=== PATIENT | male | born 1955 | race Caucasian/White ===

== ENCOUNTER → 2020-07-20 15:33 | Outpatient (BNVA) | payer OTHER, SELFPAY | PROVIDERS: PCP Internal Medicine; Visit Provider Student in an Organized Health Care Education/Training Program | DX: Z76.89 Persons encountering health services in other specified circumstances (principal) ==

== ENCOUNTER 2020-07-21 14:56 | Outpatient (REF) | payer OTHER, SELFPAY ==
[2020-07-21 16:22] LABS: Alanine Aminotransferase 13 U/L (0-40); Albumin Level 4.5 g/dL (3.5-5.0); Alkaline Phosphatase 56 U/L (39-117); Anion Gap 14 (12-20); Aspartate Amino Transferase 21 U/L (5-37); Bilirubin Total 0.2 mg/dL (0.0-1.0); Blood Urea Nitrogen 24 mg/dL (9-16); Carbon Dioxide 28 mmol/L (22-29); Chloride 100 mmol/L (96-108); Estimated Glomerular Filt Rate > 60; Glucose Random 84 mg/dL (60-115); Potassium 4.7 mmol/l (3.3-5.1); Sodium 137 mmol/L (135-145); Total Protein 7.1 g/dL (6.5-8.0); Uric Acid 6.4 mg/dL (3.4-7.0)
== END 2020-07-21 14:57 | disposition home or self-care (01) ==
LOC: HO.LAB 14:56
PROVIDERS: Visit Provider Student in an Organized Health Care Education/Training Program
DX: M1A.09X0 Idiopathic chronic gout, multiple sites, without tophus (tophi) (principal)
CPT/HCPCS: 36415; 80053; 84550

== ENCOUNTER 2021-01-16 15:29 | Outpatient (REF) | payer OTHER, SELFPAY ==
[2021-01-16 18:19] LABS: Alanine Aminotransferase 10 U/L (0-40); Albumin Level 4.2 g/dL (3.5-5.0); Alkaline Phosphatase 63 U/L (39-117); Anion Gap 16 (12-20); Aspartate Amino Transferase 28 U/L (5-37); Bilirubin Total 0.5 mg/dL (0.0-1.0); Blood Urea Nitrogen 16 mg/dL (9-16); Calcium 9.9 mg/dL (8.4-10.2); Carbon Dioxide 26 mmol/L (22-29); Chloride 104 mmol/L (96-108); Estimated Glomerular Filt Rate > 60; Glucose Random 86 mg/dL (60-115); Potassium 4.5 mmol/L (3.3-5.1); Sodium 141 mmol/L (135-145); Total Protein 6.9 g/dL (6.5-8.0); Uric Acid 4.7 mg/dL (3.4-7.0)
== END 2021-01-16 15:30 | disposition home or self-care (01) ==
LOC: HO.LAB 15:29
PROVIDERS: PCP Internal Medicine; Visit Provider Student in an Organized Health Care Education/Training Program
DX: M1A.09X0 Idiopathic chronic gout, multiple sites, without tophus (tophi) (principal); Z79.899 Other long term (current) drug therapy; Z87.891 Personal history of nicotine dependence; Z72.89 Other problems related to lifestyle
CPT/HCPCS: 36415; 80053; 84550

== ENCOUNTER → 2021-07-17 14:10 | Outpatient (BNVA) | payer OTHER, SELFPAY | PROVIDERS: PCP Internal Medicine; Visit Provider Nurse Practitioner Family ==

== ENCOUNTER 2021-08-15 09:23 | Outpatient (REF) | payer MEDICARE, SELFPAY ==
[2021-08-15 10:38] LABS: Alanine Aminotransferase 10 U/L (0-40); Albumin Level 4.2 g/dL (3.5-5.0); Alkaline Phosphatase 57 U/L (39-117); Anion Gap 11 (12-20); Aspartate Amino Transferase 21 U/L (5-37); Bilirubin Total 0.6 mg/dL (0.0-1.0); Blood Urea Nitrogen 21 mg/dL (9-16); Calcium 9.7 mg/dL (8.4-10.2); Carbon Dioxide 29 mmol/L (22-29); Chloride 104 mmol/L (96-108); Estimated Glomerular Filt Rate 59; Glucose Random 95 mg/dL (60-115); Potassium 4.7 mmol/L (3.3-5.1); Sodium 139 mmol/L (135-145); Total Protein 6.8 g/dL (6.5-8.0); Uric Acid 4.7 mg/dL (3.4-7.0)
== END 2021-08-15 09:24 | disposition home or self-care (01) ==
LOC: HO.LAB 09:23
PROVIDERS: PCP Internal Medicine; Visit Provider Nurse Practitioner Family
DX: M1A.09X0 Idiopathic chronic gout, multiple sites, without tophus (tophi) (principal)
CPT/HCPCS: 36415; 80053; 84550

== ENCOUNTER 2021-12-14 13:57 | Outpatient (REF) | payer MEDICARE, SELFPAY ==
[2021-12-14 15:01] LABS: MANUAL DIFF FLAG NO
[2021-12-14 15:48] LABS: Basophils Absolute Auto 0.1 X10*3/uL (0.0-0.2); Basophils Percent Auto 0.7 % (0-2); Eosinophils Absolute Auto 0.2 X10*3/uL (0.0-0.4); Hematocrit 46.2 % (42.0-52.0); Hemoglobin 15.4 g/dl (14.0-18.0); Imm Gran Abs Auto 0.02 X10*3/uL (0.00-0.03); Imm Gran Pct Auto 0.3 % (0.0-0.4); Lymphocytes Absolute Auto 2.5 X10*3/uL (1.2-4.9); Lymphocytes Percent Auto 33.6 % (20-40); Mean Corpuscular HGB Conc 33.3 g/dl (31.0-36.0); Mean Corpuscular Hemoglobin 31.8 pg (27.0-33.0); Mean Corpuscular Volume 95.3 fL (80.0-98.0); Mean Platelet Volume 9.6 fL (9.4-12.4); Monocytes Absolute Auto 0.7 X10*3/uL (0.1-1.2); Monocytes Percent Auto 9.2 % (2-11); Neutrophils Percent Auto 54.2 % (45-73); Platelet Count 281 X10*3/uL (160-400); Red Blood Count 4.85 X10*6/uL (4.60-5.80); White Blood Count 7.5 X10*3/uL (4.8-10.8)
[2021-12-14 16:09] LABS: Alanine Aminotransferase 13 U/L (0-40); Albumin Level 4.4 g/dL (3.5-5.0); Alkaline Phosphatase 58 U/L (39-117); Anion Gap 14 (12-20); Aspartate Amino Transferase 21 U/L (5-37); Bilirubin Total 0.6 mg/dL (0.0-1.0); Blood Urea Nitrogen 17 mg/dL (9-16); Calcium 9.6 mg/dL (8.4-10.2); Carbon Dioxide 25 mmol/L (22-29); Chloride 102 mmol/L (96-108); Cholesterol 259 mg/dL; Estimated Glomerular Filt Rate > 60; Glucose Fasting 92 mg/dL (60-99); HDL Cholesterol 74 mg/dL; LDL Cholesterol Calculated 157 mg/dl; Potassium 4.3 mmol/L (3.3-5.1); Sodium 137 mmol/L (135-145); Total Protein 7.2 g/dL (6.5-8.0); Triglycerides 142 mg/dL; Uric Acid 4.7 mg/dL (3.4-7.0)
[2021-12-14 16:10] LABS: Appearance Urine CLEAR; Color Urine YELLOW; Glucose Urine UA NEG (NEG); Leukocyte Esterase Urine NEG (NEG); Nitrite Urine NEG (NEG); Urine Blood NEG (NEG); Urine Ketones NEG (NEG); Urine Protein NEG (NEG-TRACE)
[2021-12-14 16:32] LABS: Prostate Specific Antigen 0.74 ng/mL (<0.05-4.0); TSH reflex Free T4 1.03 uIU/mL (0.32-4.0); Vitamin D 25-OH Total 24.4 ng/mL (>30)
== END 2021-12-14 13:58 | disposition home or self-care (01) ==
LOC: HO.LAB 13:57
PROVIDERS: Absent Provider Internal Medicine; PCP Internal Medicine; Visit Provider Nurse Practitioner Family
DX: Z00.00 Encounter for general adult medical examination without abnormal findings (principal); M1A.09X0 Idiopathic chronic gout, multiple sites, without tophus (tophi); I10 Essential (primary) hypertension; E78.5 Hyperlipidemia, unspecified; E78.00 Pure hypercholesterolemia, unspecified; E55.9 Vitamin D deficiency, unspecified; N40.0 Benign prostatic hyperplasia without lower urinary tract symptoms; Z12.5 Encounter for screening for malignant neoplasm of prostate
CPT/HCPCS: 36415; 80053; 80061; 81003; 82306; 84153; 84443; 84550; 85025; 99212

== ENCOUNTER → 2022-02-07 13:19 | Outpatient (BNVA) | payer MEDICARE, SELFPAY | PROVIDERS: PCP Internal Medicine; Referring Provider Internal Medicine; Visit Provider Physician Assistant | DX: Z12.11 Encounter for screening for malignant neoplasm of colon (principal) | CPT/HCPCS: 99202 ==

== ENCOUNTER 2022-06-14 13:32 | Outpatient (REF) | payer MEDICARE, SELFPAY ==
[2022-06-14 14:54] LABS: Blood Urea Nitrogen 16 mg/dL (9-16); Estimated Glomerular Filt Rate > 60; Uric Acid 4.2 mg/dL (3.4-7.0)
== END 2022-06-14 13:33 | disposition home or self-care (01) ==
LOC: HO.LAB 13:32
PROVIDERS: PCP Internal Medicine; Visit Provider Nurse Practitioner Family
DX: M1A.09X0 Idiopathic chronic gout, multiple sites, without tophus (tophi) (principal); Z79.899 Other long term (current) drug therapy
CPT/HCPCS: 36415; 82565; 84520; 84550; 99212

== ENCOUNTER 2022-06-17 11:42 | Day surgery (SDC) | payer MEDICARE, SELFPAY ==
[2022-06-12 10:14] VITALS: BMI 23.5
--- NOTE | 2022-06-14 10:23 | P.CONAN_ITS ---
Documented by User: Marisa Schmidt NP 06/14/22 10:25 HPI - Anesthesia Eval Consult details Narrative: 66yo M for Colonoscopy PMFSH Active Problems Active Problems: All Active Problems (Updated 02/07/22 @ 14:01 by Lianna Reed PA-C) Colon cancer screening (Acute) Post traumatic stress disorder (PTSD) (Acute) Annual physical exam (Acute) Pure hypercholesterolemia (Acute) Benign essential hypertension (Acute) Gouty arthritis (Acute) Gout (Acute) Past Medical History Medical History Benign essential hypertension Gout Gouty arthritis Hyperlipidemia Hypertension Post traumatic stress disorder (PTSD) Pure hypercholesterolemia Family History Family History Father No problems noted. Mother CVD (cardiovascular disease) Brother Alcohol abuse Epileptic seizure Aneurysm Surgical History Surgical History History of appendectomy Social History Social History Housing: House Alcohol intake: current Alcohol intake frequency: 3 or more drinks per day Patient Tobacco Use Status: Former Tobacco user Second Hand Smoke Exposure: Yes Use of substances other than those prescribed or required for medical reasons: Yes Substance Use Type Other:: smoking Substance Use Frequency: Daily Are you DNR?: No Advance Directives: No Advance Directives Information Provided: Yes Current occupational status: retired Cognitive needs: No Hearing needs: No Vision needs: Yes Meds Allergies Allergy/AdvReac Type Severity Reaction Status Date / Time aspirin [ASPIRIN] Allergy Severe THROAT Verified 06/14/22 12:57 CLOSES/HIVES NSAIDS (Non-Steroidal Allergy Intermediate Hives Verified 06/14/22 12:57 Anti-Inflamma [NSAIDS (NON-STEROIDAL ANTI-INFLAMMA] citalopram AdvReac Intermediate insomnia, Verified 06/14/22 12:57 racing thoughts , increased anxiety Exam Exam Date and Time: June 14, 2022 1023 Height,Weight and Vital Signs: Height 5 ft 10 in Weight 74.389 kg Pertinent Lab Results Pertinent Lab Results: Laboratory Tests 12/14/21 12/14/21 14:58 14:58 WBC 7.5 Hgb 15.4 Hct 46.2 Plt Count 281 Sodium 137 Potassium 4.3 Chloride 102 Carbon Dioxide 25 BUN 17 H Creatinine 1.13 Assessment and Plan Assessment Anesthesia Assessment: Chart Reviewed Documented by User: Janeth Fajardo MD 06/17/22 12:16 [facility] Past Medical History Medical History Benign essential hypertension Gout Gouty arthritis Hyperlipidemia Hypertension Post traumatic stress disorder (PTSD) Pure hypercholesterolemia Functional capacity: independent ambulation Family History Family History Father No problems noted. Mother CVD (cardiovascular disease) Brother Alcohol abuse Epileptic seizure Aneurysm Family history of problems with anesthesia: No Surgical History Surgical History History of appendectomy History of Problems with Anesthesia: No Social History Social History Housing: House Alcohol intake: current Alcohol intake frequency: 3 or more drinks per day Patient Tobacco Use Status: Former Tobacco user Second Hand Smoke Exposure: Yes Use of substances other than those prescribed or required for medical reasons: Yes Substance Use Type Other:: smoking Substance Use Frequency: Daily Are you DNR?: No Advance Directives: No Advance Directives Information Provided: Yes Current occupational status: retired Cognitive needs: No Hearing needs: No Vision needs: Yes Meds Allergies Allergy/AdvReac Type Severity Reaction Status Date / Time aspirin [ASPIRIN] Allergy Severe THROAT Verified 06/14/22 12:57 CLOSES/HIVES NSAIDS (Non-Steroidal Allergy Intermediate Hives Verified 06/14/22 12:57 Anti-Inflamma [NSAIDS (NON-STEROIDAL ANTI-INFLAMMA] citalopram AdvReac Intermediate insomnia, Verified 06/14/22 12:57 racing thoughts , increased anxiety Exam Airway Mallampati Class: I TM Dist: >3cm Neck ROM: Full Heart: RRR Lungs: CTA Assessment and Plan Final Anesthetic Review Family History of Problems with Anesthesia: No History of Problems with Anesthesia: No ASA Class: II Final Preanesthetic Review: No Changes in Pt Med Stat, Meds/Allgs Chart Reviewed, Consent Obtained/Reviewed and Anes Risks/Benef Reviewed Patient Risk: Low Procedure Risk: Low Anesthetic Plan Anesthetic Plan: MAC: Disposition: Standard PACU
--- NOTE | 2022-06-17 12:01 | MHC.SHP ---
Pre-Procedural Eval Section A Date of Service: 06/17/22 The patient is an INPATIENT: No The History & Physical has been completed within 30 days and I have reviewed it.: No Section B Chief Complaint: screening Details of Present Illness: colon cancer screening Relevant Family History (Specify if Yes): No Relevant Social History: Tobacco Use ( former smoker) Present Medications: see Short Stay Collaborative assessment Medical History: Significant History (Benign essential hypertension Gout Gouty arthritis Hyperlipidemia Hypertension Post traumatic stress disorder (PTSD) Pure hypercholesterolemia) History of Previous Operations: Relevant previous surgery/procedure and date(s) ( history of appendectomy) Allergies: Allergies Allergy/AdvReac Type Severity Reaction Status Date / Time aspirin [ASPIRIN] Allergy Severe THROAT Verified 06/14/22 12:57 CLOSES/HIVES NSAIDS (Non-Steroidal Allergy Intermediate Hives Verified 06/14/22 12:57 Anti-Inflamma [NSAIDS (NON-STEROIDAL ANTI-INFLAMMA] citalopram AdvReac Intermediate insomnia, Verified 06/14/22 12:57 racing thoughts , increased anxiety Review of Systems Sugical H&P ROS: Negative: Constitution, Cardiovascular, Respiratory and Gastrointestinal Exam Surgical H&P Exam: Normal: Heart, Normal: Lungs, Normal: Extremities and Normal: Abdomen Plan Diagnosis/Plan: Unchanged I have reviewed the history and physical and performed a pertinent physical examination on my patient. No changes have occurred unless specified.
[2022-06-17 12:07] VITALS: BP 145/92; PULSE 89; RESP 18; TEMP 36.9; O2SAT 99
[2022-06-17] MEDS: Lactated Ringers 1,000 ML 100 ML IVCONT (12:09)
--- NOTE | 2022-06-17 12:15 | P.BOP_ITS ---
Brief Operative Note Date of Service: 06/17/22 Pre-op diagnosis: colon cancer screening Post-op diagnosis: other (DIVERTICULOSIS, HEMORRHOIDS) Procedure: COLONOSCOPY TO CECUM Surgeon: Harry Lbaoy MD Anesthesia: MAC Was an Splitter Operator used for this Procedure?: Yes Splitter Operator: David Kaur Estimated blood loss (mL): 0 Pathology: none sent Condition: stable Disposition: PACU
--- NOTE | 2022-06-17 12:16 | P.OP_ITS ---
Operative Note Operative Note Date of Service: 06/17/22 Narrative: Pre-op diagnosis: colon cancer screening Post-op diagnosis:?other (DIVERTICULOSIS, HEMORRHOIDS) Surgeon: Harry Laboy MD Anesthesia:?MAC COLONOSCOPY TILL CECUM Consent: Indications for the procedure and potential complications of bleeding, perforation, reaction to medications and missed diagnosis were discussed with the patient and informed consent was obtained. Instrument: Olympus PCF H 190 L variable stiffness pediatric colonoscope Monitoring: Vital signs and clinical assessment, intermittent blood pressure monitoring, continuous EKG monitoring, Pulse oximetry and Carbon Dioxide monitoring were done throughout the procedure. Colon withdrawl time was 15 minutes. Procedure: The patient was placed in the left lateral decubitis position and pre-procedure medications were administered. After a digital rectal examination of the ano-rectum, the video colonoscope was inserted into the rectum and advanced through the colon to the cecum. The colonoscope was slowly withdrawn in a retrograde panoramic fashion and the colon mucosa was carefully examined including a retroflexed view of the rectum. Findings and interventions are described below. Procedure Difficulty: Without difficulty Findings: Terminal Ileum: Not evaluated Cecum: Normal Ascending Colon: Scattered moderate diverticulosis throughout the colon Transverse Colon: Scattered moderate diverticulosis throughout the colon Descending Colon: Scattered moderate diverticulosis throughout the colon Sigmoid Colon: Severe diverticulosis with luminal narrowing Rectum: Normal Ano-rectum: Moderate internal hemorrhoids Colon preparation: Good Impression and Post Procedure Diagnosis: Colonoscopy Findings: No polyps were detected Moderate diverticulosis seen in the entire colon (left > right) Moderate hemorrhoids on retroflexed exam. Plan: Patient has an appointment on 07/04/22 in the [facility] with Harry Laboy M.D.. Repeat Colonoscopy in 10 years (reminder sent to GI splicer machine operator). Above findings were reviewed with the patient and diverticulosis handout was given in the discharge area
[2022-06-17 12:55] VITALS: BP 104/66; PULSE 81; RESP 18; TEMP 36.2; O2SAT 98
[2022-06-17 13:10] VITALS: BP 134/85; PULSE 79; RESP 18; TEMP 36.2; O2SAT 98
--- NOTE | 2022-06-17 14:28 | HO.POSTANES ---
Post Anesthesia Evaluation Post Anesthesia Evaluation Vital Signs: Vital Signs Temp Pulse Resp BP Pulse Ox O2 Del Method 06/17/22 13:10 97.2 F 79 18 134/85 98 Room Air 06/17/22 12:55 97.2 F 81 18 104/66 98 Room Air 06/17/22 12:07 98.5 F 89 18 145/92 H 99 Room Air Anesthesia: Monitored Mental Status: Awake Pain Control: Satisfactory Nausea/Vomiting: None Hydration: Adequate Anesthesia-Related Issues: No Anes. Related Issues
== END 2022-06-17 13:52 | disposition home or self-care (01) ==
PROVIDERS: PCP Internal Medicine; Visit Provider Internal Medicine Gastroenterology
PROC: 0DJD8ZZ Inspection of Lower Intestinal Tract, Via Natural or Artificial Opening Endoscopic (ICD-10-PCS; CPT 45378; principal; 2022-06-17 12:10)
DX: Z12.11 Encounter for screening for malignant neoplasm of colon (principal); K57.30 Diverticulosis of large intestine without perforation or abscess without bleeding; K64.8 Other hemorrhoids; I10 Essential (primary) hypertension; M10.9 Gout, unspecified; E78.5 Hyperlipidemia, unspecified; E78.00 Pure hypercholesterolemia, unspecified; F43.10 Post-traumatic stress disorder, unspecified; Z79.899 Other long term (current) drug therapy; Z88.8 Allergy status to other drugs, medicaments and biological substances; Z87.891 Personal history of nicotine dependence
CPT/HCPCS: G0121

== ENCOUNTER 2022-10-30 13:17 | Outpatient (REF) | payer MEDICARE, SELFPAY ==
[2022-10-30 13:30] LABS: MANUAL DIFF FLAG NO
[2022-10-30 14:02] LABS: Basophils Percent Auto 0.4 % (0-2); Eosinophils Absolute Auto 0.1 X10*3/uL (0.0-0.4); Eosinophils Percent Auto 0.6 % (0-4); Hematocrit 42.7 % (42.0-52.0); Hemoglobin 14.6 g/dl (14.0-18.0); Imm Gran Abs Auto 0.05 X10*3/uL (0.00-0.03); Imm Gran Pct Auto 0.5 % (0.0-0.4); Lymphocytes Absolute Auto 2.4 X10*3/uL (1.2-4.9); Lymphocytes Percent Auto 24.5 % (20-40); Mean Corpuscular HGB Conc 34.2 g/dl (31.0-36.0); Mean Corpuscular Hemoglobin 33.2 pg (27.0-33.0); Mean Platelet Volume 9.3 fL (9.4-12.4); Monocytes Absolute Auto 0.9 X10*3/uL (0.1-1.2); Monocytes Percent Auto 8.8 % (2-11); Neutrophils Absolute Auto 6.3 x10*3/uL (2.0-8.3); Neutrophils Percent Auto 65.2 % (45-73); Platelet Count 269 X10*3/uL (160-400); Red Cell Distribution Width 14.2 % (11.0-16.0); White Blood Count 9.6 X10*3/uL (4.8-10.8)
[2022-10-30 14:07] LABS: Appearance Urine Clear; Color Urine Yellow; Glucose Urine UA Negative (Negative); Leukocyte Esterase Urine Negative (Negative); Nitrite Urine Negative (Negative); PH 5.5 (5.0-9.0); Specific Gravity - Urine 1.015 (1.005-1.025); Urine Blood Negative (Negative); Urine Ketones Negative (Negative); Urine Protein Negative (Neg-Trace)
[2022-10-30 15:31] LABS: Alanine Aminotransferase 10 U/L (0-40); Albumin Level 4.3 g/dL (3.5-5.0); Alkaline Phosphatase 54 U/L (39-117); Anion Gap 15 (12-20); Aspartate Amino Transferase 21 U/L (5-37); Bilirubin Total 0.6 mg/dL (0.0-1.0); Blood Urea Nitrogen 17 mg/dL (9-16); Calcium 9.3 mg/dL (8.4-10.2); Carbon Dioxide 22 mmol/L (22-29); Chloride 105 mmol/L (96-108); Cholesterol 284 mg/dL; Estimated Glomerular Filt Rate > 60; Glucose Fasting 93 mg/dL (60-99); HDL Cholesterol 77 mg/dL; LDL Cholesterol Calculated 182 mg/dl; Potassium 4.4 mmol/L (3.3-5.1); Sodium 138 mmol/L (135-145); Total Protein 6.7 g/dL (6.5-8.0); Triglycerides 127 mg/dL; Uric Acid 4.4 mg/dL (3.4-7.0)
[2022-10-30 15:38] LABS: TSH reflex Free T4 1.12 uIU/mL (0.32-4.0); Vitamin D 25-OH Total 25.1 ng/mL (>30)
== END 2022-10-30 13:18 | disposition home or self-care (01) ==
LOC: HO.LAB 13:17
PROVIDERS: PCP Internal Medicine; Visit Provider Internal Medicine
DX: E55.9 Vitamin D deficiency, unspecified (principal); E78.00 Pure hypercholesterolemia, unspecified; R30.0 Dysuria; I10 Essential (primary) hypertension; M10.9 Gout, unspecified
CPT/HCPCS: 36415; 80053; 80061; 81003; 82306; 84443; 84550; 85025

== ENCOUNTER 2023-02-27 10:18 | Outpatient (REF) | payer MEDICARE, SELFPAY ==
[2023-02-27 10:37] LABS: MANUAL DIFF FLAG NO
[2023-02-27 11:32] LABS: Basophils Absolute Auto 0.1 X10*3/uL (0.0-0.2); Basophils Percent Auto 0.7 % (0-2); Eosinophils Absolute Auto 0.1 X10*3/uL (0.0-0.4); Eosinophils Percent Auto 1.1 % (0-4); Hematocrit 41.9 % (42.0-52.0); Hemoglobin 13.9 g/dl (14.0-18.0); Imm Gran Abs Auto 0.03 X10*3/uL (0.00-0.03); Imm Gran Pct Auto 0.3 % (0.0-0.4); Lymphocytes Absolute Auto 2.4 X10*3/uL (1.2-4.9); Lymphocytes Percent Auto 23.6 % (20-40); Mean Corpuscular HGB Conc 33.2 g/dl (31.0-36.0); Mean Corpuscular Hemoglobin 31.7 pg (27.0-33.0); Mean Corpuscular Volume 95.7 fL (80.0-98.0); Monocytes Absolute Auto 1.1 X10*3/uL (0.1-1.2); Monocytes Percent Auto 10.5 % (2-11); Neutrophils Absolute Auto 6.4 x10*3/uL (2.0-8.3); Neutrophils Percent Auto 63.8 % (45-73); Platelet Count 324 X10*3/uL (160-400); Red Blood Count 4.38 X10*6/uL (4.60-5.80); Red Cell Distribution Width 13.8 % (11.0-16.0)
[2023-02-27 12:16] LABS: Appearance Urine Clear; Color Urine Yellow; Glucose Urine UA Negative (Negative); Leukocyte Esterase Urine Negative (Negative); Nitrite Urine Negative (Negative); PH 6.5 (5.0-9.0); Specific Gravity - Urine 1.015 (1.005-1.025); Urine Blood Negative (Negative); Urine Ketones Negative (Negative); Urine Protein Negative (Neg-Trace)
[2023-02-27 12:33] LABS: Alanine Aminotransferase 13 U/L (0-40); Albumin Level 3.9 g/dL (3.5-5.0); Alkaline Phosphatase 62 U/L (39-117); Anion Gap 11 (12-20); Aspartate Amino Transferase 24 U/L (5-37); Bilirubin Total 0.3 mg/dL (0.0-1.0); Blood Urea Nitrogen 15 mg/dL (9-16); Calcium 9.3 mg/dL (8.4-10.2); Carbon Dioxide 27 mmol/L (22-29); Chloride 107 mmol/L (96-108); Cholesterol 171 mg/dL; Estimated Glomerular Filt Rate > 60; Glucose Fasting 92 mg/dL (60-99); HDL Cholesterol 54 mg/dL; LDL Cholesterol Calculated 96 mg/dl; Potassium 4.6 mmol/L (3.3-5.1); Sodium 140 mmol/L (135-145); Total Protein 6.9 g/dL (6.5-8.0); Triglycerides 106 mg/dL; Uric Acid 4.7 mg/dL (3.4-7.0)
[2023-02-27 12:41] LABS: TSH reflex Free T4 1.05 uIU/mL (0.32-4.0); Vitamin D 25-OH Total 32.7 ng/mL (>30)
== END 2023-02-27 10:19 | disposition home or self-care (01) ==
LOC: HO.LAB 10:18
PROVIDERS: PCP Internal Medicine; Visit Provider Internal Medicine
DX: E55.9 Vitamin D deficiency, unspecified (principal); I10 Essential (primary) hypertension; R30.0 Dysuria; M10.9 Gout, unspecified; E78.00 Pure hypercholesterolemia, unspecified
CPT/HCPCS: 36415; 80053; 80061; 81003; 82306; 84443; 84550; 85025

== ENCOUNTER 2023-02-28 09:55 | Outpatient (AMB) | payer MEDICARE, SELFPAY ==
[2023-02-28 10:01] VITALS: BP 118/76; PULSE 75; O2SAT 98; BMI 24.6
--- NOTE | 2023-02-28 10:01 | MHC.PC.OV ---
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: No Accompanied by: Self / Same As Patient Allergies aspirin [ASPIRIN] Allergy (Severe, Verified 02/28/23 10:53) THROAT CLOSES/HIVES NSAIDS (Non-Steroidal Anti-Inflamma [NSAIDS (NON-STEROIDAL ANTI-INFLAMMA] Allergy (Intermediate, Verified 02/28/23 10:53) Hives citalopram Adverse Reaction (Intermediate, Verified 02/28/23 10:53) insomnia, racing thoughts , increased anxiety Medication List - Last Reconciled 02/28/23 by Arvind Torres MD allopurinol 300 mg PO DAILY atorvastatin 10 mg PO BEDTIME 30 days lisinopril 10 mg PO DAILY lorazepam 1 mg PO DAILY PRN 30 days sildenafil 100 mg PO DAILY 30 days Tobacco use date assessed: 02/28/23 Fall risk assessment: 1 Fall in past year Last assessed Fall Risk: 02/28/23 Dental Screening Dental Screen Date: 02/28/23 Did you have a dental visit in the last 12 months?: Yes Did you have a dental problem in the last 6 months where you did not have access to dental care?: No Was dental information given to patient?: Patient has dentist HPI hyperlipdiemia, HTN, gout, ED HPI Details Patient comes in today for his follow up visit States that he feels okay He denies any headaches or dizziness Denies any chest pains, no SOB No nausea/vomiting, no abdominal pain No change in bowel habits noted Still has increased anxiety often (has PTSD) but states that he is learning to control his anxiety better now Adds that he has not had any significant flare ups of his gout lately; will be seeing rheumatology in a few months for his yearly follow up Had his follow up labs done yesterday - to discuss his results [facility] Medical History Benign essential hypertension Closed fracture of left distal radius Erectile dysfunction Gout Gouty arthritis Hyperlipidemia Hypertension Post traumatic stress disorder (PTSD) Pure hypercholesterolemia Surgical History History of appendectomy Hx of colonoscopy Family History Father No problems noted. Mother CVD (cardiovascular disease) Brother Alcohol abuse Epileptic seizure Aneurysm Social History Housing: House Alcohol intake: current Alcohol intake frequency: 3 or more drinks per day Patient Tobacco Use Status: Former Tobacco user e-Cigarette/Vaping Use: Never Used Second Hand Smoke Exposure: Yes Current occupational status: retired Cognitive needs: No Hearing needs: No Vision needs: Yes Questionnaire PHQ-9 Over the last 2 weeks, how often have you been bothered by any of the following problems? 1. Little interest or pleasure in doing things: not at all 2. Feeling down, depressed, or hopeless: not at all 3. Trouble falling or staying asleep, or sleeping too much: not at all 4. Feeling tired or having little energy: not at all 5. Poor appetite or overeating: not at all 6. Feeling bad about yourself - or that you are a failure or have let yourself or your family down: not at all 7. Trouble concentrating on things, such as reading the newspaper or watching television: not at all 8. Moving or speaking so slowly that other people could have noticed. Or the opposite - being so fidgety or restless that you have been moving around a lot more than usual: not at all 9. Thoughts that you would be better off or of hurting yourself in some way: not at all Total score: 0 Depression Screening Interpretation: Negative 20471 - PHQ-9 Billing: Yes Source: Developed by Drs. David Garrido, Lindsey Mccarthy, Gaston Jacob and colleagues, with an educational osmar from [employer]. Thrive Questionnaire Date Thrive assessed: 02/28/23 I am a: Patient What is your living situation today?: I have a steady place to live Within the past 12 months, did the food you bought not last and you didn't have the money to get more?: Never true Within the past 12 months, did you worry whether your food would run out before you got money to buy more?: Never true Do you have trouble paying for medicines?: No Do you have trouble getting transportation to medical appointments?: No Do you have trouble paying your heating and electricity bill?: No Do you have trouble taking care of your child, family member or friend?: No Do you have trouble with day-to-day activities such as bathing, preparing meals, shopping, managing finances, etc.?: No Are you currently unemployed and looking for a job?: No Are you interested in more education?: No Please select the resources that you would like help with: None Currently or been in a relationship where the following occur: no concerns reported AUDIT C Alcohol Use Questionnaire (AUDIT-C) 1. How often do you have a drink containing alcohol?: 2-3 times a week 2. How many drinks containing alcohol do you have on a typical day when you are drinking?: 1 or 2 3. How often do you have six or more drinks on one occasion?: Never Total Score: 3 Score Reviewed/Action Taken: Yes MT-7 AMB Questionnaire MT-7 Date MT - 7 assessed: 10/31/22 Feeling nervous, anxious, or on edge: 2 = More than half the days Not being able to stop or control worryin = More than half the days Worrying too much about different things: 2 = More than half the days Trouble relaxin = Not at all Being so restless that it is hard to sit still: 0 = Not at all Becoming easily annoyed or irritable: 0 = Not at all Feeling afraid as if something awful might happen: 0 = Not at all Total MT-7 score (0-4 normal; 5-9 mild; 10-14 moderate; 15-21 severe): 6 Source: Developed by Drs. David Garrido, Lindsey Mccarthy, Gaston Jacob and colleagues, with an educational osmar from [employer]. Review of Systems Const Denies chills, Reports difficulty sleeping, Denies fatigue, Denies fever(s) and Denies headache(s) ENT Denies dysphagia, Denies dizziness, Denies otalgia, Denies headache(s), Denies odynophagia and Denies sore throat Card Denies chest pain, Denies palpitations and Denies dyspnea Resp Denies cough and Denies dyspnea GI Denies abdominal pain, Denies constipation, Denies dysphagia, Denies heartburn, Denies diarrhea, Denies nausea, Denies odynophagia and Denies vomiting Denies dysuria, Denies nocturia and Denies urinary frequency Neuro Denies dizziness and Denies headache(s) Psych Reports anxiety (increasing lately) Endo Denies fatigue and Denies palpitations Physical exam (Primary Care) Vital Signs: Last Vital Signs Pulse 75 02/28/23 10:01 BP 118/76 02/28/23 10:01 Pulse Ox 98 02/28/23 10:01 Oxygen Delivery Method Room Air 02/28/23 10:01 BMI result Body Mass Index 24.6 Tobacco/Smoking Status: Tobacco use Status Tobacco use date assessed 02/28/23 02/28/23 10:09 Patient Tobacco Use Status Former Tobacco user 02/28/23 10:09 e-Cigarette/Vaping Use Never Used 02/28/23 10:09 PHQ-9: PHQ-9 Score PHQ-9: Total score 0 02/28/23 10:09 Depression Screening Interpretation: Negative Thrive Assessment: Date of Thrive Assessment Date Thrive assessed 02/28/23 02/28/23 10:09 Currently or been in a relationship where the following occur: no concerns reported Const General: no acute distress and alert HENMT Ears: TM's normal bilaterally and EAC's normal Throat: Yes posterior oropharynx normal and Yes tonsils normal (no TP congestion) Neck Neck: Yes no lymphadenopathy and Yes supple Resp Auscultation: clear to auscultation bilaterally, no rales and no wheezes Cardio Rate: regular rate Rhythm: regular rhythm Heart sounds: no murmurs GI Palpation (GI): Soft to palpation and nontender Auscultation: normal bowel sounds Extrem General: Yes no clubbing, cyanosis or edema Results Reviewed Results Reviewed: Laboratory Tests 02/27/23 02/27/23 02/27/23 10:35 10:36 10:36 WBC 10.0 Hgb 13.9 L Hct 41.9 L Plt Count 324 Sodium 140 Potassium 4.6 Creatinine 1.17 Estimated GFR > 60 Fasting Glucose 92 Uric Acid 4.7 Calcium 9.3 AST 24 ALT 13 Triglycerides 106 Cholesterol 171 LDL Cholesterol, Calc 96 HDL Cholesterol 54 25-OH Vitamin D Total 32.7 TSH 1.05 Ur Specific [place] 1.015 Urine Protein Negative Urine Glucose (UA) Negative Urine Blood Negative Assessment and Plan Assessment & Plan (1) Pure hypercholesterolemia: Code(s): E78.00 - Pure hypercholesterolemia, unspecified Plan: Results of his labs done yesterday reviewed and discussed with patient - advised that his cholesterol levels have improved significantly from previous Reinforced low cholesterol diet Continue Atorvastatin 10 mg QD Will recheck his labs in 4 months for follow up (2) Benign essential hypertension: Code(s): I10 - Essential (primary) hypertension Plan: Reinforced low sodium diet - goal is systolic BP of at least 130 to 140 mm or less Continue Lisinopril 10 mg QD (3) Gout: Code(s): M10.9 - Gout, unspecified Qualifiers: Gout site: multiple sites Gout etiology: idiopathic Chronicity: chronic Presence of tophus: without tophus Qualified Code(s): M1A.09X0 - Idiopathic chronic gout, multiple sites, without tophus (tophi) Plan: Reinforced low purine diet States that he's had no acute gout flare ups lately - takes Prednisone as needed for acute flare ups Continue Allopurinol 300 mg QD Follow up with rheumatology as scheduled (4) Erectile dysfunction: Code(s): N52.9 - Male erectile dysfunction, unspecified Qualifiers: Erectile dysfunction type: unspecified Qualified Code(s): N52.9 - Male erectile dysfunction, unspecified Plan: Continue Sildenafil 100 mg QD PRN (5) Post traumatic stress disorder (PTSD): Code(s): F43.10 - Post-traumatic stress disorder, unspecified Plan: Continue Lorazepam 1 mg QD PRN Used to take Buspirone but patient stopped it a couple of years ago as he did not feel that it was helping; does not wish to start on any new Rx for now, especially since he is starting back on cholesterol Rx Advised to call if his anxiety continues to get worse Follow up with psychiatry as scheduled - therapist is Juan Adhikari III on [facility] in [place] although he states that he has not seen Juan Adhikari III in a few years now (6) Closed fracture of left distal radius: Code(s): S52.502A - Unspecified fracture of the lower end of left radius, initial encounter for closed fracture Qualifiers: Encounter type: sequela Fracture morphology: unspecified fracture morphology Qualified Code(s): S52.502S - Unspecified fracture of the lower end of left radius, sequela Plan: RESOLVED States that he still has some discomfort occasionally in his hand but has no other problems with it overall Injury occurred in late August 2022 when he slipped on black ice and tried to break his fall with his left hand Fracture was minimally displaced and was treated conservatively with no surgery needed - injury has since healed Follow up with orthopedics ([facility]) as scheduled or as needed Plan Follow up in 4 months Orders: Orders Comprehensive [place]. Panel Fast 4 Months E78.00 - Pure hypercholesterolemia, unspecified Lipid Panel 4 Months E78.00 - Pure hypercholesterolemia, unspecified Prostate Specific Antigen 4 Months N40.0 - Benign prostatic hyperplasia without lower urinary tract symptoms, Z00.00 - Encounter for general adult medical examination without abnormal findings TSH reflex Free T4 4 Months E78.00 - Pure hypercholesterolemia, unspecified, Z00.00 - Encounter for general adult medical examination without abnormal findings Vitamin D 25-OH Total 4 Months E55.9 - Vitamin D deficiency, unspecified, Z00.00 - Encounter for general adult medical examination without abnormal findings Complete Blood Count Auto Diff 4 Months I10 - Essential (primary) hypertension, Z00.00 - Encounter for general adult medical examination without abnormal findings UA CC w/rflx Micro + Cult 4 Months R30.0 - Dysuria, Z00.00 - Encounter for general adult medical examination without abnormal findings Uric Acid 4 Months M10.9 - Gout, unspecified Coding Level of Care Code Est Pt Level 4 (59908) Diagnoses Pure hypercholesterolemia E78.00 Benign essential hypertension I10 Gout M1A.09X0 Gout site: multiple sites Gout etiology: idiopathic Chronicity: chronic Presence of tophus: without tophus Erectile dysfunction N52.9 Erectile dysfunction type: unspecified Post traumatic stress disorder (PTSD) F43.10 Closed fracture of left distal radius S52.502S Encounter type: sequela Fracture morphology: unspecified fracture morphology
== END 2023-02-28 11:03 | disposition home or self-care (01) ==
PROVIDERS: Visit Provider Internal Medicine
DX: E78.00 Pure hypercholesterolemia, unspecified (principal); I10 Essential (primary) hypertension; F43.10 Post-traumatic stress disorder, unspecified; M1A.09X0 Idiopathic chronic gout, multiple sites, without tophus (tophi); N52.9 Male erectile dysfunction, unspecified; S52.502S Unspecified fracture of the lower end of left radius, sequela
CPT/HCPCS: 99214

== ENCOUNTER 2023-06-16 09:28 | Outpatient (AMB) | payer MEDICARE, SELFPAY ==
--- NOTE | 2023-06-16 09:30 | MHC.OFFVIS ---
Intake Vital Signs 06/16/23 09:31 Height 5 ft 10 in Weight 178 lb 9.191 oz BMI 25.6 BP 116/70 Blood Pressure Location Rt brachial Position Sitting Pulse 92 Pulse Source Pulse Oximeter Temp 97 F Temp Source Skin Pulse Oximetry (%) 97 Oxygen Delivery Method Room Air Intake Visit Reasons: Gout Intake Note: Patient presents today for yearly follow up on Gout. Last seen by Rosi on 06/14/22. Guidance Adviser Required: No Accompanied by: Self / Same As Patient Allergies aspirin [ASPIRIN] Allergy (Severe, Verified 06/16/23 09:36) THROAT CLOSES/HIVES NSAIDS (Non-Steroidal Anti-Inflamma [NSAIDS (NON-STEROIDAL ANTI-INFLAMMA] Allergy (Intermediate, Verified 06/16/23 09:36) Hives citalopram Adverse Reaction (Intermediate, Verified 06/16/23 09:36) insomnia, racing thoughts , increased anxiety HPI HPI Comments History of Present Illness Details Mr. Burks, a 66yoM presents for follow-up of gout. Last seen in June 2022. The patient has been on allopurinol 300 mg daily and has not had a gout flare since last visit. He follows a low purine diet. He states that with his past flares he knows that if he takes colchicine with out delay (when he first percieves the flare), it usually resolves the flare very quickly. However, if he waits, it takes longer to control. He also reports some handstiffness (feels like tendon pulling on left 3rd) in the morning that kasts less than 10 minutes. It does not go throughout the day and improves almost immediately with hand exercises. He denies, redness, swelling, warmth., PFSH Medical History Benign essential hypertension Closed fracture of left distal radius Erectile dysfunction Gout Gouty arthritis Hyperlipidemia Hypertension Post traumatic stress disorder (PTSD) Pure hypercholesterolemia Surgical History Hx of colonoscopy History of appendectomy Family History Father No problems noted. Mother CVD (cardiovascular disease) Brother Alcohol abuse Epileptic seizure Aneurysm Social History (Reviewed 06/16/23 @ 09:36 by LUCY Hurley Housing: House Alcohol intake: current Alcohol intake frequency: 3 or more drinks per day Patient Tobacco Use Status: Former Tobacco user e-Cigarette/Vaping Use: Never Used Second Hand Smoke Exposure: Yes Current occupational status: retired Cognitive needs: No Hearing needs: No Vision needs: Yes Review of Systems Const All systems reviewed & are unremarkable except as noted in HPI and below Physical Exam Vital Signs: Last Vital Signs Temp 97 F 06/16/23 09:31 Pulse 92 06/16/23 09:31 BP 116/70 06/16/23 09:31 Pulse Ox 97 06/16/23 09:31 Oxygen Delivery Method Room Air 06/16/23 09:31 BMI result Body Mass Index 25.6 APPEARANCE: Patient in no acute distress EYES: no redness, pupils equal and reactive to light, eyelids normal EARS: External ear normal. NOSE/SINUS: Airflow through both nares, no nasal discharge, no bleeding THROAT: Oral mucosa moist, no ulcerations NECK: No thyromegaly or masses, no adenopathy, trachea midline. HEART: Regular rhythm, S1-S2 heard, no murmurs, rubs or gallops. LUNG: Clear to auscultation throughout bilaterally, respiratory rate regular nonlabored. ABD: Normal bowel sounds, no organomegaly, masses or tenderness. EXTREMITIES: No edema, no calf tenderness, normal peripheral pulses. NEURO: Oriented and alert x3. No focal weakness. Gait normal. SKIN: No inflammatory or neoplastic lesions. Normal color and turgor JOINT EXAM: Cervical Spine:Full range of motion without pain; no tenderness. Thoracic Spine: No scoliosis.? No tenderness on palpation. Lumbar Spine:? Alignment normal.? Full range of motion without pain, no tenderness. Hands: Normal pain-free range of motion without tenderness, swelling, increased warmth or erythema. Able to make a full fist and has a good intellectual property paralegal strength. Bony enlargement noted of the left ulnar styloid (chronic x 12 years per patient) Wrists: Normal pain-free range of motion without tenderness, swelling, increased warmth or erythema. Elbows: Normal pain-free range of motion without tenderness, swelling, increased warmth or erythema. Shoulders:?? Full range of motion without pain. No tenderness, weakness, swelling, increased warmth or erythema. Hips:? Full range of motion without pain. Hip bursa: No tenderness. Knees:? Normal pain-free range of motion without tenderness, swelling, increased warmth or erythema.? There is no effusion or crepitation Ankles:? Normal pain-free range of motion without tenderness, swelling, increased warmth or erythema. Feet: Normal pain-free range of motion without tenderness, swelling, increased warmth or erythema. Results Reviewed Results Reviewed: Laboratory Tests 02/27/23 10:36 RBC 4.38 L Hgb 13.9 L Hct 41.9 L BUN 15 Creatinine 1.17 Uric Acid 4.7 Assessment & Plan Assessment & Plan (1) Gouty arthritis: Code(s): M10.9 - Gout, unspecified Plan: X-rays of hands and feet in 11/2018 with erosions consistent with gouty arthritis. Continue Tylenol arthritis as needed to help manage his symptoms. 15 minutes spent reviewing chart, evaluating patient documenting. (2) FDC use of drug: Code(s): Z79.899 - Other long term care phlebotomist (current) drug therapy Plan #Gouty Arthritis: Mr. Burks here for follow-up of gout. He is on 300 mg Allopurinol daily and his symptoms are well controlled, last flare over 1 year ago and Uric Acid <5 for the last 2 years. Last Uric acid 4.7 in 02/2023. Goal uric acid level is 6.0 mg/dL, therefore patient is at and below goal, Patient's uric acid has been at goal since 2019, BUN creatinine are stable. Given that, I think we can attempt to reduce the Allopurinol dose to 150mg QD and reassess. He will use the current prescription and will break the tablets in 2, talking 1/2 tablet. He will have colchicine on hand to address a flare which can happen when Allopurinol dose changes. We will also follow up with labs to evaluate Uric acid level in 4 to 6 months. Patient knows to call the office if he has recurring flares. #Shelter Use of Allopurinol: CBC, CMP grossly unremarkable for anemia and kidney function. Patient obtains labs on schedule with PCP. Patient denies rashes. Follow-up in the office in 12 months or sooner if needed Medications: New colchicine 0.6 mg PO DAILY PRN 14 tabs 0RF Gout Flare M10.9 - Gout, unspecified Coding Level of Care Code Est Pt Level 3 (52135) Diagnoses Gouty arthritis M10.9 FDC use of drug Z79.899
[2023-06-16 09:31] VITALS: BP 116/70; PULSE 92; TEMP 36.1; O2SAT 97; BMI 25.6
== END 2023-06-16 10:01 | disposition home or self-care (01) ==
PROVIDERS: PCP Internal Medicine; Visit Provider Nurse Practitioner Family
DX: M10.9 Gout, unspecified (principal); Z79.899 Other long term (current) drug therapy
CPT/HCPCS: 99213

== ENCOUNTER → 2023-06-16 09:28 | Outpatient (BNVA) | payer MEDICARE, SELFPAY | PROVIDERS: PCP Internal Medicine; Visit Provider Nurse Practitioner Family | DX: M10.9 Gout, unspecified (principal); Z79.899 Other long term (current) drug therapy | CPT/HCPCS: 99212 ==

== ENCOUNTER 2023-07-08 13:39 | Outpatient (AMB) | payer MEDICARE, SELFPAY ==
--- NOTE | 2023-07-08 13:40 | A.OFFPC_ITS ---
Vital Signs 07/08/23 13:48 Height 5 ft 10 in Weight 170 lb 8 oz BMI 24.5 BP 124/78 Blood Pressure Location Lt brachial Position Sitting Pulse 103 H Pulse Source Pulse Oximeter Pulse Oximetry (%) 96 Oxygen Delivery Method Room Air Intake Visit Reasons: Annual Physical Lobby Porter Required: No Accompanied by: Self / Same As Patient Allergies aspirin [ASPIRIN] Allergy (Severe, Verified 07/08/23 14:19) THROAT CLOSES/HIVES NSAIDS (Non-Steroidal Anti-Inflamma [NSAIDS (NON-STEROIDAL ANTI-INFLAMMA] Allergy (Intermediate, Verified 07/08/23 14:19) Hives citalopram Adverse Reaction (Intermediate, Verified 07/08/23 14:19) insomnia, racing thoughts , increased anxiety Medication List - Last Reconciled 07/08/23 by Arvind Torres MD allopurinol 150 mg PO DAILY atorvastatin 10 mg PO BEDTIME 30 days colchicine 0.6 mg PO DAILY PRN lisinopril 10 mg PO DAILY lorazepam 1 mg PO DAILY PRN 30 days sildenafil 100 mg PO DAILY 30 days Tobacco use date assessed: 07/08/23 Fall risk assessment: No Falls in past year Last assessed Fall Risk: 07/08/23 Dental Screening Dental Screen Date: 07/08/23 Did you have a dental visit in the last 12 months?: Yes Did you have a dental problem in the last 6 months where you did not have access to dental care?: No Was dental information given to patient?: Patient has dentist HPI Annual Physical HPI Details Patient comes in today for his annual physical examination States that he feels okay He denies any headaches or dizziness Denies any chest pains, no SOB No nausea/vomiting, no abdominal pain No change in bowel habits noted Denies any acute urinary symptoms Was not able to get his labs done prior to his appointment today He was also reported seen by rheumatology for follow up about 3 weeks ago and was instructed to cut his Allopurinol in half (to 150 mg QD) and started on Colchicine QD PRN Had his screening colonoscopy done last year in 06/2022 - will be due for repeat colonoscopy in 10 years (2031) [facility] Medical History Closed fracture of left distal radius Erectile dysfunction Post traumatic stress disorder (PTSD) Pure hypercholesterolemia Benign essential hypertension Hyperlipidemia Hypertension Gouty arthritis Gout Surgical History Hx of colonoscopy History of appendectomy Family History Father No problems noted. Mother CVD (cardiovascular disease) Brother Alcohol abuse Epileptic seizure Aneurysm Social History Housing: House Alcohol intake: current Alcohol intake frequency: 3 or more drinks per day Patient Tobacco Use Status: Former Tobacco user e-Cigarette/Vaping Use: Never Used Second Hand Smoke Exposure: Yes Current occupational status: retired Cognitive needs: No Hearing needs: No Vision needs: Yes Questionnaire PHQ-9 Over the last 2 weeks, how often have you been bothered by any of the following problems? 1. Little interest or pleasure in doing things: not at all 2. Feeling down, depressed, or hopeless: not at all 3. Trouble falling or staying asleep, or sleeping too much: not at all 4. Feeling tired or having little energy: not at all 5. Poor appetite or overeating: not at all 6. Feeling bad about yourself - or that you are a failure or have let yourself or your family down: not at all 7. Trouble concentrating on things, such as reading the newspaper or watching television: not at all 8. Moving or speaking so slowly that other people could have noticed. Or the opposite - being so fidgety or restless that you have been moving around a lot more than usual: not at all 9. Thoughts that you would be better off or of hurting yourself in some way: not at all Total score: 0 Depression Screening Interpretation: Negative Depression Screening Done: Yes 44460 - PHQ-9 Billing: Yes Source: Developed by Drs. David Garrido, Lindsey Mccarthy, Gaston Jacob and colleagues, with an educational osmar from [employer]. Thrive Questionnaire Date Thrive assessed: 07/08/23 I am a: Patient What is your living situation today?: I have a steady place to live Within the past 12 months, did the food you bought not last and you didn't have the money to get more?: Never true Within the past 12 months, did you worry whether your food would run out before you got money to buy more?: Never true Do you have trouble paying for medicines?: No Do you have trouble getting transportation to medical appointments?: No Do you have trouble paying your heating and electricity bill?: No Do you have trouble taking care of your child, family member or friend?: No Do you have trouble with day-to-day activities such as bathing, preparing meals, shopping, managing finances, etc.?: No Are you currently unemployed and looking for a job?: No Are you interested in more education?: No Please select the resources that you would like help with: None Currently or been in a relationship where the following occur: no concerns reported AUDIT C Alcohol Use Questionnaire (AUDIT-C) 1. How often do you have a drink containing alcohol?: 2-3 times a week 2. How many drinks containing alcohol do you have on a typical day when you are drinking?: 1 or 2 3. How often do you have six or more drinks on one occasion?: Never Total Score: 3 Score Reviewed/Action Taken: Yes MT-7 AMB Questionnaire MT-7 Date MT - 7 assessed: 07/08/23 Feeling nervous, anxious, or on edge: 2 = More than half the days Not being able to stop or control worryin = More than half the days Worrying too much about different things: 2 = More than half the days Trouble relaxin = Not at all Being so restless that it is hard to sit still: 0 = Not at all Becoming easily annoyed or irritable: 0 = Not at all Feeling afraid as if something awful might happen: 0 = Not at all Total MT-7 score (0-4 normal; 5-9 mild; 10-14 moderate; 15-21 severe): 6 Source: Developed by Drs. David Garrido, Lindsey Mccarthy, Gaston Jacob and colleagues, with an educational osmar from [employer]. Review of Systems Const Denies chills, Reports difficulty sleeping (chronic), Denies fatigue, Denies fever(s), Denies headache(s), Denies malaise and Denies weakness Eyes Denies blurry vision, Denies change in vision, Denies irritation and Denies itchy eyes ENT Denies dysphagia, Denies dizziness, Denies otalgia, Denies headache(s), Denies nasal congestion, Denies neck pain, Denies odynophagia and Denies sore throat Card Denies chest pain, Denies rapid heart rate, Denies irregular heart rhythm, Denies palpitations and Denies dyspnea Resp Denies chest congestion, Denies cough, Denies dyspnea and Denies wheezing GI Denies abdominal pain, Denies bloating, Denies constipation, Denies dysphagia, Denies heartburn, Denies diarrhea, Denies nausea, Denies odynophagia and Denies vomiting Denies hematuria, Denies difficulty urinating, Denies dysuria, Denies urinary frequency and Denies urinary urgency Musc Denies back pain, Denies arthralgias, Denies joint swelling, Denies muscle weakness and Denies neck pain Skin/Breast Denies change in pigmentation, Denies lesions, Denies rash and Denies unusual bruising Neuro Denies dizziness, Denies headache(s), Denies paresthesias and Denies weakness Psych Reports anxiety (Rx helping) Endo Denies fatigue and Denies palpitations Aller/Immun Denies itchy eyes and Denies wheezing Physical exam (Primary Care) Vital Signs: Last Vital Signs Pulse 103 H 07/08/23 13:48 BP 124/78 07/08/23 13:48 Pulse Ox 96 07/08/23 13:48 Oxygen Delivery Method Room Air 07/08/23 13:48 BMI result Body Mass Index 24.5 Tobacco/Smoking Status: Tobacco use Status Tobacco use date assessed 07/08/23 07/08/23 13:55 Patient Tobacco Use Status Former Tobacco user 07/08/23 13:41 e-Cigarette/Vaping Use Never Used 07/08/23 13:41 PHQ-9: PHQ-9 Score PHQ-9: Total score 0 07/08/23 14:28 Depression Screening Interpretation: Negative Thrive Assessment: Date of Thrive Assessment Date Thrive assessed 07/08/23 07/08/23 13:55 Currently or been in a relationship where the following occur: no concerns reported Const General: no acute distress, alert and awake Orientation/consciousness: patient oriented x3 HENMT Head: Yes normocephalic and Yes atraumatic Ears: external ears normal, TM's normal bilaterally and EAC's normal General nose exam: No nasal discharge present Face and sinus: Yes normal facial exam and Yes sinuses nontender Teeth and gingiva: dentition normal Throat: Yes posterior oropharynx normal and Yes tonsils normal (no TP congestion) Eyes Eyelids: Yes eyelids normal Conjunctivae: conjunctivae normal Pupils: Equal, round and reactive pupils present EOM: EOMs intact bilaterally Neck Neck: Yes no lymphadenopathy and Yes supple Thyroid: Thyroid normal Resp Auscultation: clear to auscultation bilaterally, no rales and no wheezes Cardio Rate: regular rate Rhythm: regular rhythm Heart sounds: no murmurs GI Palpation (GI): Soft to palpation, nontender and No hepatosplenomegaly present Auscultation: normal bowel sounds General: Yes no CVA tenderness Back/Spine/Pelvis Back: no CVA tenderness Thoracic/Lumbar Spine: thoracic and lumbar spine normal to inspection Skin Lesions: no lesions Rashes: no rashes Neuro General: patient oriented x3, moves all extremities, no focal motor deficits and CN's II-XI intact bilaterally Cranial nerves: Yes Equal, round and reactive pupils present Cognition (Neuro): normal cognition Gait exam (Neuro): Normal gait present Extrem General: Yes no clubbing, cyanosis or edema Assessment and Plan Assessment & Plan (1) Annual physical exam: Code(s): Z00.00 - Encounter for general adult medical examination without abnormal findings Plan: Check labs - he was not able to get his labs done yet; can just use his previous orders and get them done DARNELL He is up-to-date with his colon cancer screening - repeat colonoscopy will be due in 2031 (2) Pure hypercholesterolemia: Code(s): E78.00 - Pure hypercholesterolemia, unspecified Plan: Was not able to get his fasting lipids rechecked yet - will try to get them done tomorrow morning Reinforced low cholesterol diet Continue Atorvastatin 10 mg QD Will recheck his labs and fasting lipids in 4 months for follow up (3) Benign essential hypertension: Code(s): I10 - Essential (primary) hypertension Plan: Reinforced low sodium diet - goal is systolic BP of at least 130 to 140 mm or less Continue Lisinopril 10 mg QD (4) Gout: Code(s): M10.9 - Gout, unspecified Qualifiers: Chronicity: chronic Gout etiology: idiopathic Gout site: multiple sites Presence of tophus: without tophus Qualified Code(s): M1A.09X0 - Idiopathic chronic gout, multiple sites, without tophus (tophi) Plan: Reinforced low purine diet States that he's had no acute gout flare ups lately - takes Prednisone as needed for acute flare ups Continue Allopurinol 150 mg QD and Colchicine 0.6 mg QD PRN Follow up with rheumatology as scheduled (5) Closed fracture of left distal radius: Code(s): S52.502A - Unspecified fracture of the lower end of left radius, initial encounter for closed fracture Qualifiers: Encounter type: sequela Fracture morphology: unspecified fracture morphology Qualified Code(s): S52.502S - Unspecified fracture of the lower end of left radius, sequela Plan: RESOLVED States that he still has some discomfort occasionally in his hand but has no other problems overall Injury occurred in late August 2022 when he slipped on black ice and tried to break his fall with his left hand Fracture was minimally displaced and was treated conservatively with no surgery needed - injury has since healed Follow up with orthopedics ([facility]) as scheduled or as needed (6) Erectile dysfunction: Code(s): N52.9 - Male erectile dysfunction, unspecified Qualifiers: Erectile dysfunction type: unspecified Qualified Code(s): N52.9 - Male erectile dysfunction, unspecified Plan: Continue Sildenafil 100 mg QD PRN (7) Post traumatic stress disorder (PTSD): Code(s): F43.10 - Post-traumatic stress disorder, unspecified Plan: Continue Lorazepam 1 mg QD PRN Used to take Buspirone but patient stopped it a couple of years ago as he did not feel that it was helping; does not wish to start on any new Rx for now He is advised to call if his anxiety gets worse Follow up with psychiatry as scheduled - therapist is Juan Adhikari III on [facility] in [place] although he states that he has not seen Juan Adhikari III in a few years now Plan Follow up in 4 months Orders: Orders Comprehensive [place]. Panel Fast 4 Months E78.00 - Pure hypercholesterolemia, unspecified Lipid Panel 4 Months E78.00 - Pure hypercholesterolemia, unspecified Medications: Changed From allopurinol 300 mg PO DAILY 90 tabs 3RF M10.9 - Gout, unspecified To allopurinol 150 mg PO DAILY M10.9 - Gout, unspecified Coding Level of Care Code Est Pt Prev Care >65y(71596) Diagnoses Annual physical exam Z00.00 Pure hypercholesterolemia E78.00 Benign essential hypertension I10 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.09X0 Chronicity: chronic Gout etiology: idiopathic Gout site: multiple sites Presence of tophus: without tophus Closed fracture of distal end of left radius, unspecified fracture morphology, sequela S52.502S Encounter type: sequela Fracture morphology: unspecified fracture morphology Erectile dysfunction, unspecified erectile dysfunction type N52.9 Erectile dysfunction type: unspecified Post traumatic stress disorder (PTSD) F43.10
[2023-07-08 13:48] VITALS: BP 124/78; PULSE 103; O2SAT 96; BMI 24.5
== END 2023-07-08 14:31 | disposition home or self-care (01) ==
PROVIDERS: PCP Internal Medicine; Visit Provider Internal Medicine
DX: Z00.00 Encounter for general adult medical examination without abnormal findings (principal); E78.00 Pure hypercholesterolemia, unspecified; I10 Essential (primary) hypertension; M1A.09X0 Idiopathic chronic gout, multiple sites, without tophus (tophi); S52.502S Unspecified fracture of the lower end of left radius, sequela; N52.9 Male erectile dysfunction, unspecified; F43.10 Post-traumatic stress disorder, unspecified
CPT/HCPCS: 99397

== ENCOUNTER 2023-07-09 12:13 | Outpatient (REF) | payer MEDICARE, SELFPAY ==
[2023-07-09 12:28] LABS: MANUAL DIFF FLAG NO
[2023-07-09 12:46] LABS: Basophils Absolute Auto 0.1 X10*3/uL (0.0-0.2); Basophils Percent Auto 0.7 % (0-2); Eosinophils Absolute Auto 0.1 X10*3/uL (0.0-0.4); Eosinophils Percent Auto 1.9 % (0-4); Hematocrit 47.7 % (42.0-52.0); Hemoglobin 15.7 g/dl (14.0-18.0); Imm Gran Abs Auto 0.01 X10*3/uL (0.00-0.03); Imm Gran Pct Auto 0.1 % (0.0-0.4); Lymphocytes Absolute Auto 2.4 X10*3/uL (1.2-4.9); Lymphocytes Percent Auto 34.3 % (20-40); Mean Corpuscular HGB Conc 32.9 g/dl (31.0-36.0); Mean Corpuscular Hemoglobin 31.2 pg (27.0-33.0); Mean Corpuscular Volume 94.8 fL (80.0-98.0); Mean Platelet Volume 8.9 fL (9.4-12.4); Monocytes Absolute Auto 0.8 X10*3/uL (0.1-1.2); Neutrophils Absolute Auto 3.6 x10*3/uL (2.0-8.3); Platelet Count 252 X10*3/uL (160-400); Red Blood Count 5.03 X10*6/uL (4.60-5.80); Red Cell Distribution Width 13.6 % (11.0-16.0); White Blood Count 6.9 X10*3/uL (4.8-10.8)
[2023-07-09 15:36] LABS: Appearance Urine Clear; Color Urine Yellow; Glucose Urine UA Negative (Negative); Leukocyte Esterase Urine Negative (Negative); Nitrite Urine Negative (Negative); PH 5.5 (5.0-9.0); Urine Blood Negative (Negative); Urine Ketones Trace mg/dL (Negative); Urine Protein Negative (Neg-Trace)
[2023-07-09 16:48] LABS: Alanine Aminotransferase 9 U/L (0-40); Albumin Level 4.4 g/dL (3.5-5.0); Alkaline Phosphatase 58 U/L (39-117); Anion Gap 11 (12-20); Aspartate Amino Transferase 25 U/L (5-37); Bilirubin Total 0.9 mg/dL (0.0-1.0); Blood Urea Nitrogen 18 mg/dL (9-16); Carbon Dioxide 29 mmol/L (22-29); Chloride 103 mmol/L (96-108); Cholesterol 222 mg/dL (<200); Estimated Glomerular Filt Rate > 60; Glucose Fasting 99 mg/dL (60-99); HDL Cholesterol 98 mg/dL (>40); LDL Cholesterol Calculated 101 mg/dL (<100); Potassium 4.3 mmol/L (3.3-5.1); Sodium 139 mmol/L (135-145); Total Protein 7.7 g/dL (6.5-8.0); Triglycerides 118 mg/dL (<150); Uric Acid 5.7 mg/dL (3.4-7.0)
[2023-07-09 17:13] LABS: TSH reflex Free T4 1.27 uIU/mL (0.32-4.0); Vitamin D 25-OH Total 26.8 ng/mL (>30)
[2023-07-09 21:34] LABS: Prostate Specific Antigen 0.74 ng/mL (<0.05-4.0)
== END 2023-07-09 12:14 | disposition home or self-care (01) ==
LOC: HO.LAB 12:13
PROVIDERS: PCP Internal Medicine; Visit Provider Internal Medicine
DX: Z00.00 Encounter for general adult medical examination without abnormal findings (principal); E55.9 Vitamin D deficiency, unspecified; E78.00 Pure hypercholesterolemia, unspecified; I10 Essential (primary) hypertension; R30.0 Dysuria; N40.0 Benign prostatic hyperplasia without lower urinary tract symptoms; M10.9 Gout, unspecified; Z12.5 Encounter for screening for malignant neoplasm of prostate
CPT/HCPCS: 36415; 80053; 80061; 81003; 82306; 84153; 84443; 84550; 85025

== ENCOUNTER 2023-11-07 13:36 | Outpatient (REF) | payer MEDICARE, SELFPAY ==
[2023-11-07 15:52] LABS: Alanine Aminotransferase 14 U/L (0-40); Albumin Level 4.2 g/dL (3.5-5.0); Alkaline Phosphatase 54 U/L (39-117); Anion Gap 12 (12-20); Aspartate Amino Transferase 28 U/L (5-37); Bilirubin Total 0.6 mg/dL (0.0-1.0); Blood Urea Nitrogen 17 mg/dL (9-16); Calcium 9.7 mg/dL (8.4-10.2); Carbon Dioxide 26 mmol/L (22-29); Chloride 105 mmol/L (96-108); Cholesterol 174 mg/dL (<200); Estimated Glomerular Filt Rate 56; Glucose Fasting 91 mg/dL (60-99); HDL Cholesterol 61 mg/dL (>40); LDL Cholesterol Calculated 92 mg/dL (<100); Potassium 4.2 mmol/L (3.3-5.1); Sodium 139 mmol/L (135-145); Total Protein 7.3 g/dL (6.5-8.0); Triglycerides 107 mg/dL (<150)
== END 2023-11-07 13:37 | disposition home or self-care (01) ==
LOC: HO.LAB 13:36
PROVIDERS: PCP Internal Medicine; Visit Provider Internal Medicine
DX: E78.00 Pure hypercholesterolemia, unspecified (principal)
CPT/HCPCS: 36415; 80053; 80061

== ENCOUNTER 2023-11-10 10:56 | Outpatient (AMB) | payer MEDICARE, SELFPAY ==
--- NOTE | 2023-11-10 11:04 | MHC.PC.OV ---
Vital Signs 11/10/23 11:07 Height 5 ft 10 in Weight 175 lb 8 oz BMI 25.2 BP 130/74 Blood Pressure Location Lt brachial Position Sitting Pulse 71 Pulse Source Pulse Oximeter Pulse Oximetry (%) 97 Oxygen Delivery Method Room Air Intake Visit Reasons: 4mth f/u Intake Note: Patient is here to follow up on HTN, PTSD, Hypercholesterolemia. Production Quality Analyst Required: No Conditioning Yard Supervisor: Not Required per policy Accompanied by: Self / Same As Patient Allergies aspirin [ASPIRIN] Allergy (Severe, Verified 11/10/23 11:35) THROAT CLOSES/HIVES NSAIDS (Non-Steroidal Anti-Inflamma [NSAIDS (NON-STEROIDAL ANTI-INFLAMMA] Allergy (Intermediate, Verified 11/10/23 11:35) Hives citalopram Adverse Reaction (Intermediate, Verified 11/10/23 11:35) insomnia, racing thoughts , increased anxiety Medication List - Last Reconciled 11/10/23 by Arvind Torres MD allopurinol 150 mg PO DAILY atorvastatin 10 mg PO BEDTIME 30 days colchicine 0.6 mg PO DAILY PRN lisinopril 10 mg PO DAILY lorazepam 1 mg PO DAILY PRN 30 days sildenafil 100 mg PO DAILY 30 days Tobacco use date assessed: 11/10/23 Fall risk assessment: No Falls in past year Last assessed Fall Risk: 11/10/23 Dental Screening Dental Screen Date: 11/10/23 Did you have a dental visit in the last 12 months?: Yes Did you have a dental problem in the last 6 months where you did not have access to dental care?: No Was dental information given to patient?: Patient has dentist HPI 4mt f/u HPI Details Patient comes in today for his follow up visit States that he feels okay except for recurrent pain and tightness over his right lower back/right flank area that he states has been going on for a couple of months now States that he has been going to the gym regularly since July 2023 and uses a variety of exercise equipments over there, including treadmill, elliptical and rowing machine, and states that he tries to alternate them regularly Notes that his right lower back tends to act up and bother him more after he uses the rowing machine at the gym He is concerned that his right lower back pain may be due to kidney stones and would like to have this checked out further He denies any headaches or dizziness Denies any chest pains, no SOB No nausea/vomiting, no abdominal pain No change in bowel habits noted Notes that his right lower back pain does not get any worse when he is urinating or using the bathroom Had his follow up labs done a few days ago - to discuss his results [facility] Medical History Closed fracture of left distal radius Erectile dysfunction Post traumatic stress disorder (PTSD) Pure hypercholesterolemia Benign essential hypertension Hyperlipidemia Hypertension Gouty arthritis Gout Surgical History Hx of colonoscopy History of appendectomy Family History Father No problems noted. Mother CVD (cardiovascular disease) Brother Alcohol abuse Epileptic seizure Aneurysm Other Substance use disorder Social History Housing: House Alcohol intake: current Alcohol intake frequency: a few times a week Patient Tobacco Use Status: Former Tobacco user e-Cigarette/Vaping Use: Never Used Second Hand Smoke Exposure: Yes service: No Current occupational status: retired Cognitive needs: No Hearing needs: No Vision needs: Yes Questionnaire PHQ-9 Over the last 2 weeks, how often have you been bothered by any of the following problems? 1. Little interest or pleasure in doing things: not at all 2. Feeling down, depressed, or hopeless: several days 3. Trouble falling or staying asleep, or sleeping too much: not at all 4. Feeling tired or having little energy: not at all 5. Poor appetite or overeating: not at all 6. Feeling bad about yourself - or that you are a failure or have let yourself or your family down: not at all 7. Trouble concentrating on things, such as reading the newspaper or watching television: not at all 8. Moving or speaking so slowly that other people could have noticed. Or the opposite - being so fidgety or restless that you have been moving around a lot more than usual: not at all 9. Thoughts that you would be better off or of hurting yourself in some way: not at all Total score: 1 Depression Screening Interpretation: Negative Depression Screening Done: Yes 16676 - PHQ-9 Billing: Yes Source: Developed by Drs. David Garrido, iLndsey Mccarthy, Gaston Jacob and colleagues, with an educational osmar from [employer]. Thrive Questionnaire Date Thrive assessed: 11/10/23 I am a: Patient What is your living situation today?: I have a steady place to live Within the past 12 months, did the food you bought not last and you didn't have the money to get more?: Never true Within the past 12 months, did you worry whether your food would run out before you got money to buy more?: Never true Do you have trouble paying for medicines?: No Do you have trouble getting transportation to medical appointments?: No Do you have trouble paying your heating and electricity bill?: No Do you have trouble taking care of your child, family member or friend?: No Do you have trouble with day-to-day activities such as bathing, preparing meals, shopping, managing finances, etc.?: No Are you currently unemployed and looking for a job?: No Are you interested in more education?: No Currently or been in a relationship where the following occur: no concerns reported THRIVE Score: 0 AUDIT C Alcohol Use Questionnaire (AUDIT-C) 1. How often do you have a drink containing alcohol?: 2-3 times a week 2. How many drinks containing alcohol do you have on a typical day when you are drinking?: 1 or 2 3. How often do you have six or more drinks on one occasion?: Never Total Score: 3 Score Reviewed/Action Taken: Yes MT-7 AMB Questionnaire MT-7 Date MT - 7 assessed: 11/10/23 Feeling nervous, anxious, or on edge: 1 = Several days Not being able to stop or control worryin = Not at all Worrying too much about different things: 0 = Not at all Trouble relaxin = Not at all Being so restless that it is hard to sit still: 0 = Not at all Becoming easily annoyed or irritable: 0 = Not at all Feeling afraid as if something awful might happen: 0 = Not at all Total MT-7 score (0-4 normal; 5-9 mild; 10-14 moderate; 15-21 severe): 1 Source: Developed by Lindsey Stover.W. Fabio, Gaston Jacob and colleagues, with an educational osmra from [employer]. Review of Systems Const Denies chills, Reports difficulty sleeping, Denies fatigue, Denies fever(s) and Denies headache(s) ENT Denies dysphagia, Denies dizziness, Denies otalgia, Denies headache(s), Denies neck pain, Denies odynophagia and Denies sore throat Card Denies chest pain, Denies palpitations and Denies dyspnea Resp Denies cough and Denies dyspnea GI Denies abdominal pain, Denies constipation, Denies dysphagia, Denies heartburn, Denies diarrhea, Denies nausea, Denies odynophagia and Denies vomiting Denies dysuria, Denies nocturia and Denies urinary frequency Musc Reports as per HPI, Reports back pain (over the right lower back - see HPI) and Denies neck pain Skin/Breast Denies rash Neuro Denies dizziness and Denies headache(s) Psych Reports anxiety (increasing lately) Endo Denies fatigue and Denies palpitations Physical exam (Primary Care) Vital Signs: Last Vital Signs Pulse 71 11/10/23 11:07 BP 130/74 11/10/23 11:07 Pulse Ox 97 11/10/23 11:07 Oxygen Delivery Method Room Air 11/10/23 11:07 BMI result Body Mass Index 25.2 Tobacco/Smoking Status: Tobacco use Status Tobacco use date assessed 11/10/23 11/10/23 11:14 Patient Tobacco Use Status Former Tobacco user 11/10/23 11:14 e-Cigarette/Vaping Use Never Used 11/10/23 11:14 PHQ-9: PHQ-9 Score PHQ-9: Total score 1 11/10/23 11:14 Depression Screening Interpretation: Negative Thrive Assessment: Date of Thrive Assessment Date Thrive assessed 11/10/23 11/10/23 11:14 Currently or been in a relationship where the following occur: no concerns reported Const General: no acute distress and alert HENMT Ears: TM's normal bilaterally and EAC's normal Throat: Yes posterior oropharynx normal and Yes tonsils normal (no TP congestion) Neck Neck: Yes no lymphadenopathy and Yes supple Thyroid: Thyroid normal Resp Auscultation: clear to auscultation bilaterally, no rales and no wheezes Cardio Rate: regular rate Rhythm: regular rhythm Heart sounds: no murmurs GI Palpation (GI): Soft to palpation and nontender Auscultation: normal bowel sounds Back/Spine/Pelvis Thoracic/Lumbar Spine: paraspinal muscle tenderness on the right in the upper lumbar, in the mid lumbar and in the lower lumbar and No lumbar spinal tenderness Skin Rashes: no rashes Extrem General: Yes no clubbing, cyanosis or edema Results Reviewed Results Reviewed: Laboratory Tests 11/07/23 13:48 Sodium 139 Potassium 4.2 Creatinine 1.27 Estimated GFR 56 Fasting Glucose 91 Calcium 9.7 AST 28 ALT 14 Triglycerides 107 Cholesterol 174 LDL Cholesterol, Calc 92 HDL Cholesterol 61 Assessment and Plan Assessment & Plan (1) Right low back pain: Code(s): M54.50 - Low back pain, unspecified Qualifiers: Chronicity: unspecified Sciatica presence: without sciatica Qualified Code(s): M54.50 - Low back pain, unspecified Plan: Patient is advised that his recent recurrent right lower back pain is most likely due to musculoskeletal strain of his right lumbar muscles and is unlikely due to kidney stones based on his presentation Will send him for lumbar spine x-rays for further evaluation and advised that if his x-rays are unrevealing, then the next step would be a referral to physical therapy He has been advised to stay away from and avoid using the rowing machine at the gym until his right low back symptoms have completely resolved (2) Pure hypercholesterolemia: Code(s): E78.00 - Pure hypercholesterolemia, unspecified Plan: Results of his labs done a few days ago reviewed and discussed with patient Reinforced low cholesterol diet Continue Atorvastatin 10 mg QD Will recheck his labs and fasting lipids in 4 months for follow up (3) Benign essential hypertension: Code(s): I10 - Essential (primary) hypertension Plan: Reinforced low sodium diet - goal is systolic BP of at least 130 to 140 mm or less Continue Lisinopril 10 mg QD (4) Gout: Code(s): M10.9 - Gout, unspecified Qualifiers: Gout site: multiple sites Gout etiology: idiopathic Chronicity: chronic Presence of tophus: without tophus Qualified Code(s): M1A.09X0 - Idiopathic chronic gout, multiple sites, without tophus (tophi) Plan: Reinforced low purine diet States that he's had no acute gout flare ups lately - takes Prednisone as needed for acute flare ups Continue Allopurinol 150 mg QD and Colchicine 0.6 mg QD PRN Follow up with rheumatology as scheduled (5) Erectile dysfunction: Code(s): N52.9 - Male erectile dysfunction, unspecified Qualifiers: Erectile dysfunction type: unspecified Qualified Code(s): N52.9 - Male erectile dysfunction, unspecified Plan: Continue Sildenafil 100 mg QD PRN (6) Post traumatic stress disorder (PTSD): Code(s): F43.10 - Post-traumatic stress disorder, unspecified Plan: Continue Lorazepam 1 mg QD PRN Used to take Buspirone but patient stopped it a couple of years ago as he did not feel that it was helping; does not wish to start on any new Rx for now He is advised to call if his anxiety gets worse Follow up with psychiatry as scheduled - therapist is Juan Adhikari III on [facility] in [place] although he states that he has not seen Juan Adhikari III in a few years now Plan Follow up in 4 months Orders: Orders XR lumbar spine 2-3V Today M54.50 - Low back pain, unspecified TSH reflex Free T4 4 Months E78.00 - Pure hypercholesterolemia, unspecified Complete Blood Count Auto Diff 4 Months D64.9 - Anemia, unspecified Comprehensive [place]. Panel Fast 4 Months E78.00 - Pure hypercholesterolemia, unspecified Lipid Panel 4 Months E78.00 - Pure hypercholesterolemia, unspecified Uric Acid 4 Months M10.9 - Gout, unspecified UA CC w/rflx Micro + Cult 4 Months R30.0 - Dysuria Vitamin D 25-OH Total 4 Months E55.9 - Vitamin D deficiency, unspecified Coding Level of Care Code Est Pt Level 4 (04799) Diagnoses Right-sided low back pain without sciatica, unspecified chronicity M54.50 Chronicity: unspecified Sciatica presence: without sciatica Pure hypercholesterolemia E78.00 Benign essential hypertension I10 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.09X0 Gout site: multiple sites Gout etiology: idiopathic Chronicity: chronic Presence of tophus: without tophus Erectile dysfunction, unspecified erectile dysfunction type N52.9 Erectile dysfunction type: unspecified Post traumatic stress disorder (PTSD) F43.10
[2023-11-10 11:07] VITALS: BP 130/74; PULSE 71; O2SAT 97; BMI 25.2
== END 2023-11-10 11:52 | disposition home or self-care (01) ==
PROVIDERS: PCP Internal Medicine; Visit Provider Internal Medicine
DX: M54.50 Low back pain, unspecified (principal); E78.00 Pure hypercholesterolemia, unspecified; I10 Essential (primary) hypertension; M1A.09X0 Idiopathic chronic gout, multiple sites, without tophus (tophi); N52.9 Male erectile dysfunction, unspecified; F43.10 Post-traumatic stress disorder, unspecified
CPT/HCPCS: 99214

== ENCOUNTER 2023-11-10 12:01 | Outpatient (REF) | payer MEDICARE, SELFPAY ==
--- NOTE | ~2023-11-10 | XR_ITS ---
EXAMINATION: XR LUMBOSACRAL SPINE CLINICAL INFORMATION: Low back pain, exercise muscle injury COMPARISON: None available. TECHNIQUE: Three views of the lumbosacral spine. FINDINGS: There is dextroscoliosis of lumbar spine and multilevel degenerative changes. There is narrowing of L1-L2, L2-L3, L3-L4, L4-L5 as well as L5-S1 intervertebral disc spaces. There is no spondylolisthesis on the multiple levels. Pedicles are preserved. Marginal spurring seen in the endplates of the left more than on the right. There is wedge-shaped deformities of L2 and L3 on the left. Sacroiliac joints are unremarkable. Soft tissues are normal. Soft tissues unremarkable XR/XR lumbar spine 2-3V IMPRESSION: Dextroscoliosis and multilevel degenerative changes of lumbar spine. Wedge-shaped deformities of L2 and L3 on the left.
== END 2023-11-10 12:02 | disposition home or self-care (01) ==
LOC: HO.XRAY 12:01
PROVIDERS: PCP Internal Medicine; Visit Provider Internal Medicine
DX: M54.50 Low back pain, unspecified (principal)
CPT/HCPCS: 72100

== ENCOUNTER 2023-12-16 12:52 | Outpatient (AMB) | payer MEDICARE, SELFPAY ==
[2023-12-16 13:06] VITALS: BP 126/74; PULSE 82; TEMP 37; O2SAT 98; BMI 25.5
--- NOTE | 2023-12-16 13:06 | AM.OFFWIN_ITS ---
Intake Vital Signs 3 12/16/23 13:06 Height 5 ft 10 in Weight 178 lb BMI 25.5 BP 126/74 Blood Pressure Location Rt brachial Position Sitting Pulse 82 Pulse Source Pulse Oximeter Temp 98.6 F Temp Source Oral Pulse Oximetry (%) 98 Oxygen Delivery Method Room Air Intake Visit Reasons: EP Poison Queenei Intake Note: pt is here for poision queenie Patient Tobacco Use Status: Former Tobacco user Allergies aspirin [ASPIRIN] Allergy (Severe, Verified 12/16/23 13:11) THROAT CLOSES/HIVES NSAIDS (Non-Steroidal Anti-Inflamma [NSAIDS (NON-STEROIDAL ANTI-INFLAMMA] Allergy (Intermediate, Verified 12/16/23 13:11) Hives citalopram Adverse Reaction (Intermediate, Verified 12/16/23 13:11) insomnia, racing thoughts , increased anxiety Do you need a note to return to daycare/school/sports/work: No HPI HPI Comments 2 History of Present Illness0 Details Patient states that he was working out in his garden and developed a rash on his right thigh 2 days prior to this appointment. States that he has used uoid-zhi-duojlak lotion with pgot-vq-rrlvslyh effect. Does have blisters on his right thigh however they have started to scab, no clear discharge at this point time. No signs of cellulitis or skin infection. Denies tingling or numbness. Denies any fevers or chills. Denies tenderness. States that his primary complaint is itchiness PFSH Medical History Closed fracture of left distal radius Erectile dysfunction Post traumatic stress disorder (PTSD) Pure hypercholesterolemia Benign essential hypertension Hyperlipidemia Hypertension Gouty arthritis Gout Surgical History Hx of colonoscopy History of appendectomy Family History Father No problems noted. Mother CVD (cardiovascular disease) Brother Alcohol abuse Epileptic seizure Aneurysm Other Substance use disorder Social History Housing: House Alcohol intake: current Alcohol intake frequency: a few times a week Patient Tobacco Use Status: Former Tobacco user e-Cigarette/Vaping Use: Never Used Second Hand Smoke Exposure: Yes service: No Current occupational status: retired Cognitive needs: No Hearing needs: No Vision needs: Yes Review of Systems Const All systems reviewed & are unremarkable except as noted in HPI and below Physical Exam Vital Signs: Last Vital Signs Temp 98.6 F 12/16/23 13:06 Pulse 82 12/16/23 13:06 BP 126/74 12/16/23 13:06 Pulse Ox 98 12/16/23 13:06 Oxygen Delivery Method Room Air 12/16/23 13:06 BMI result Body Mass Index 25.5 Const General: cooperative and no acute distress Orientation/consciousness: patient oriented x3 Limitations: no limitations Chest Chest palpation & inspection: normal inspection of the chest Resp Effort & Inspection: normal respiratory effort Skin Rashes: rashes noted Full body images: 2 1. Scabbed over blisters. Scant erythema, no discharge or signs of infection. Neuro General: patient oriented x3 Assessment & Plan Assessment & Plan (1) Poison queenie: Comment: Patient should continue to use rkyr-iko-hlhsazx calamine lotion with good effect. Does not appear to be infected. Will give patient short course of prednisone, patient has been instructed to cover the area. Patient has been educated on side effects of the medication. Patient has been educated on signs of worsening symptoms and when to report to the walk-in or when to present to the ED Code(s): L23.7 - Allergic contact dermatitis due to plants, except food Plan: Take your medications as prescribed. If you were prescribed antibiotics today, it is important that you take your medication to their entirety, do not skip any doses, do not finish them early. Follow-up with your primary care provider this week. Present to the emergency department with new or worsening symptoms. Such as fevers, chills, chest pain, shortness of breath, nausea, vomiting, dizziness, headache, vision changes, lethargy In case of emergency call 911 Plan Follow up with pcp. Medications: New 2 prednisone 40 mg (2 x 20 mg) PO DAILY 10 tabs 0RF Coding Level of Care Code Est Pt Level 3 (37660) Diagnoses Poison queenie L23.7 Time Spent (min) 24
== END 2023-12-16 14:20 | disposition home or self-care (01) ==
PROVIDERS: PCP Internal Medicine; Visit Provider Nurse Practitioner Primary Care
DX: L23.7 Allergic contact dermatitis due to plants, except food (principal)
CPT/HCPCS: 99213

== ENCOUNTER 2023-12-24 11:12 | Outpatient (AMB) | payer MEDICARE, SELFPAY ==
[2023-12-24 11:13] VITALS: BP 140/90; PULSE 97; TEMP 36.7; O2SAT 98; BMI 25.1
--- NOTE | 2023-12-24 11:13 | MHC.OFFWIV ---
Intake Vital Signs 12/24/23 11:13 Height 5 ft 10 in Weight 175 lb BMI 25.1 BP 140/90 H Blood Pressure Location Lt brachial Position Sitting Pulse 97 Pulse Source Pulse Oximeter Temp 98.1 F Temp Source Temporal Artery Scan Pulse Oximetry (%) 98 Oxygen Delivery Method Room Air Intake Visit Reasons: EP Poison LENORE not better Intake Note: pt is here today for poison lenore not better started friday Patient Tobacco Use Status: Former Tobacco user Allergies aspirin [ASPIRIN] Allergy (Severe, Verified 12/24/23 11:17) THROAT CLOSES/HIVES NSAIDS (Non-Steroidal Anti-Inflamma [NSAIDS (NON-STEROIDAL ANTI-INFLAMMA] Allergy (Intermediate, Verified 12/24/23 11:17) Hives citalopram Adverse Reaction (Intermediate, Verified 12/24/23 11:17) insomnia, racing thoughts , increased anxiety Do you need a note to return to daycare/school/sports/work: No HPI HPI Comments History of Present Illness Details Patient is a 68yo M who presents to office with poison lenore complaint He was seen in the office on 12/15 and prescribed a 5 days dose of 40mg prednisone He took the script as prescribed and said on day 5 he saw good improvement Unfortunately his symptoms started to come back the day after and spread +itchy red rash to R thigh, R arm and L forearm No fever, chills, SOB or CP He has tried A&D ointment and topical cortisone without relief Has made sure to keep clean clothes and sheets PFSH Medical History Closed fracture of left distal radius Erectile dysfunction Post traumatic stress disorder (PTSD) Pure hypercholesterolemia Benign essential hypertension Hyperlipidemia Hypertension Gouty arthritis Gout Surgical History Hx of colonoscopy History of appendectomy Family History Father No problems noted. Mother CVD (cardiovascular disease) Brother Alcohol abuse Epileptic seizure Aneurysm Other Substance use disorder Social History Housing: House Alcohol intake: current Alcohol intake frequency: a few times a week Patient Tobacco Use Status: Former Tobacco user e-Cigarette/Vaping Use: Never Used Second Hand Smoke Exposure: Yes service: No Current occupational status: retired Cognitive needs: No Hearing needs: No Vision needs: Yes Review of Systems Const Denies chills and Denies fever(s) ENT Denies throat swelling Card Denies chest pain and Denies dyspnea Resp Denies dyspnea Skin/Breast Reports pruritus, Reports lesions and Reports erythema Aller/Immun Denies throat swelling Physical Exam Vital Signs: Last Vital Signs Temp 98.1 F 12/24/23 11:13 Pulse 97 12/24/23 11:13 BP 140/90 H 12/24/23 11:13 Pulse Ox 98 12/24/23 11:13 Oxygen Delivery Method Room Air 12/24/23 11:13 BMI result Body Mass Index 25.1 General: Non-toxic, NAD. Speaking full sentences. Skin: Warm dry throughout. R thigh has large erythematous patch with vesicles and yellow crusting approx 6cm x 6cm in size No significant warmth to palpation Scattered erythematous vesicles and papules to bilateral forearms and lower legs Eye: EOMI Respiratory: No respiratory distress or stridor MSK: Full ROM extremities. Neurology: A/O. No aphasia or facial droop. Gait without abnormality Psych: Good mood and affect Assessment & Plan Assessment & Plan (1) Contact dermatitis: Code(s): L25.9 - Unspecified contact dermatitis, unspecified cause Qualifiers: Contact dermatitis type: allergic Contact dermatitis trigger: non-food plants Qualified Code(s): L23.7 - Allergic contact dermatitis due to plants, except food Plan: Patient seen and evaluated. Will use longer 2 week duration of prednisone Pt tolerated this medicine well; no alcohol or nsaid use with it. Take with food We discussed cleaning measures to prevent spread No respiratory or oral involvement No sign of cellulitis present Patient gave verbal understanding and had no additional questions or concerns at time of discharge All questions answered Medications: New calamine phenolated 1 appl topical TID PRN 177 mL 0RF itching prednisone see taper instructions; 60mg po qd x 2 days, 50mg po qd z 2 days, 40mg po qd z 2 days, 30mg po qd x 2 days, 20mg po qd x 2 days, 10mg po qd x 2 days 10 mg PO DIRECTED 42 tabs 0RF Coding Level of Care Code Est Pt Level 3 (11819) Diagnoses Allergic contact dermatitis due to plants, except food L23.7 Contact dermatitis type: allergic Contact dermatitis trigger: non-food plants
== END 2023-12-24 12:49 | disposition home or self-care (01) ==
PROVIDERS: PCP Internal Medicine; Visit Provider Physician Assistant
DX: L23.7 Allergic contact dermatitis due to plants, except food (principal)
CPT/HCPCS: 99213

== ENCOUNTER 2024-02-23 09:00 | Outpatient (AMB) | payer MEDICARE, SELFPAY ==
--- NOTE | 2024-02-23 09:24 | MHC.OFFWIV ---
Intake Vital Signs 02/23/24 09:25 Height 5 ft 10 in Weight 173 lb BMI 24.8 BP 120/80 Blood Pressure Location Lt brachial Position Sitting Pulse 72 Pulse Source Pulse Oximeter Pulse Oximetry (%) 98 Oxygen Delivery Method Room Air Intake Visit Reasons: Poison Queenie Intake Note: Patient here for poison Queenie, unsure how he got it this time but had it about 2 months ago. Pt denies doing any yard work. Patient Tobacco Use Status: Former Tobacco user Allergies aspirin [ASPIRIN] Allergy (Severe, Verified 02/23/24 09:27) THROAT CLOSES/HIVES NSAIDS (Non-Steroidal Anti-Inflamma [NSAIDS (NON-STEROIDAL ANTI-INFLAMMA] Allergy (Intermediate, Verified 02/23/24 09:27) Hives citalopram Adverse Reaction (Intermediate, Verified 02/23/24 09:27) insomnia, racing thoughts , increased anxiety Do you need a note to return to daycare/school/sports/work: No HPI Poison Queenie HPI Details This note is constructed using voice recognition software. 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 The patient is a 68 year old male who presents to the clinic today with poison queenie concern. He notes that he had not been out doing yd work, but may have been exposed at the store. He started with spots in his right arm, it seems that he itch the area and then continued to itch other parts of his body including his entire right arm, his left arm, the left side of his face, his back. No fever, chills, cough, shortness of breath, body aches. [facility] Medical History Closed fracture of left distal radius Erectile dysfunction Post traumatic stress disorder (PTSD) Pure hypercholesterolemia Benign essential hypertension Hyperlipidemia Hypertension Gouty arthritis Gout Surgical History Hx of colonoscopy History of appendectomy Family History Father No problems noted. Mother CVD (cardiovascular disease) Brother Alcohol abuse Epileptic seizure Aneurysm Other Substance use disorder Social History Housing: House Alcohol intake: current Alcohol intake frequency: a few times a week Patient Tobacco Use Status: Former Tobacco user e-Cigarette/Vaping Use: Never Used Second Hand Smoke Exposure: Yes service: No Current occupational status: retired Cognitive needs: No Hearing needs: No Vision needs: Yes Review of Systems Const All systems reviewed & are unremarkable except as noted in HPI and below Physical Exam Vital Signs: Last Vital Signs Pulse 72 02/23/24 09:25 BP 120/80 02/23/24 09:25 Pulse Ox 98 02/23/24 09:25 Oxygen Delivery Method Room Air 02/23/24 09:25 BMI result Body Mass Index 24.8 Const General: cooperative, healthy appearing, comfortable and no acute distress Orientation/consciousness: patient oriented x3 Limitations: no limitations HEENT Head: Yes normal to inspection Eyes General: appearance normal, both eyes and all related structures Resp Effort & Inspection: normal respiratory effort and able to speak in complete sentences Skin Other: A streaky, linear maculopapular rash with crusted lesions on entire right lower arm posterior aspect, left side of face, back, left leg. Neuro General: patient oriented x3 Assessment & Plan Assessment & Plan (1) Poison queenie: Code(s): L23.7 - Allergic contact dermatitis due to plants, except food Plan: No signs of secondary bacterial infection. Advised [id number] calamine lotion, steroid with taper of prednisone prescribed due to wide spread symptoms. Advised wash with [id number] post poison queenie exposure soap after any known exposure. Reviewed side effects associated with the use of prednisone. Advised patient to follow up with worsening or failure to resolve. (2) Contact dermatitis: Code(s): L25.9 - Unspecified contact dermatitis, unspecified cause Qualifiers: Contact dermatitis type: allergic Contact dermatitis trigger: non-food plants Qualified Code(s): L23.7 - Allergic contact dermatitis due to plants, except food Plan: Secondary to poison queenie. Plan See above for full details and plan. Medications: New prednisone see taper instructions: 5 pills daily for 2 days, then 4 pills daily for 2 days, then 3 pills daily for 2 days, then 2 pills daily for 2 days, then 1 pill daily for 2 days. 10 mg PO DIRECTED 30 tabs 0RF Coding Level of Care Code Est Pt Level 3 (00544) Diagnoses Poison queenie L23.7 Allergic contact dermatitis due to plants, except food L23.7 Contact dermatitis type: allergic Contact dermatitis trigger: non-food plants
[2024-02-23 09:25] VITALS: BP 120/80; PULSE 72; O2SAT 98; BMI 24.8
== END 2024-02-23 11:26 | disposition home or self-care (01) ==
PROVIDERS: PCP Internal Medicine; Visit Provider Registered Nurse
DX: L23.7 Allergic contact dermatitis due to plants, except food (principal)
CPT/HCPCS: 99213

== ENCOUNTER 2024-03-25 10:35 | Outpatient (AMB) | payer MEDICARE, SELFPAY ==
--- NOTE | 2024-03-25 10:47 | MHC.PC.OV ---
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: No Accompanied by: Self / Same As Patient Allergies aspirin [ASPIRIN] Allergy (Severe, Verified 03/25/24 11:15) THROAT CLOSES/HIVES NSAIDS (Non-Steroidal Anti-Inflamma [NSAIDS (NON-STEROIDAL ANTI-INFLAMMA] Allergy (Intermediate, Verified 03/25/24 11:15) Hives citalopram Adverse Reaction (Intermediate, Verified 03/25/24 11:15) insomnia, racing thoughts , increased anxiety Medication List - Last Reconciled 03/25/24 by Arvind Torres MD allopurinol 300 mg PO DAILY atorvastatin 10 mg PO BEDTIME 30 days calamine phenolated 1 appl topical TID PRN colchicine 0.6 mg PO DAILY PRN lisinopril 10 mg PO DAILY lorazepam 1 mg PO DAILY PRN 30 days sildenafil 100 mg PO DAILY 30 days Tobacco use date assessed: 03/25/24 Fall risk assessment: No Falls in past year Last assessed Fall Risk: 03/25/24 Dental Screening Dental Screen Date: 03/25/24 Did you have a dental visit in the last 12 months?: Yes Did you have a dental problem in the last 6 months where you did not have access to dental care?: No Was dental information given to patient?: Patient has dentist HPI hyperlipidemia, HTN, PTSD HPI Details Patient comes in today for his follow up visit States that he feels okay He denies any headaches or dizziness Denies any chest pains, no SOB No nausea/vomiting, no abdominal pain No change in bowel habits noted States that he still has a lot of anxiety and trouble sleeping through the night but his meds help He was not able to get his follow up labs done yet - states that he will get them done later today [facility] Medical History Closed fracture of left distal radius Erectile dysfunction Post traumatic stress disorder (PTSD) Pure hypercholesterolemia Benign essential hypertension Hyperlipidemia Hypertension Gouty arthritis Gout Surgical History Hx of colonoscopy History of appendectomy Family History Father No problems noted. Mother CVD (cardiovascular disease) Brother Alcohol abuse Epileptic seizure Aneurysm Other Substance use disorder Social History Housing: House Alcohol intake: current Alcohol intake frequency: a few times a week Patient Tobacco Use Status: Former Tobacco user e-Cigarette/Vaping Use: Never Used Second Hand Smoke Exposure: Yes service: No Current occupational status: retired Cognitive needs: No Hearing needs: No Vision needs: Yes Questionnaire PHQ-9 Over the last 2 weeks, how often have you been bothered by any of the following problems? 1. Little interest or pleasure in doing things: not at all 2. Feeling down, depressed, or hopeless: several days 3. Trouble falling or staying asleep, or sleeping too much: not at all 4. Feeling tired or having little energy: not at all 5. Poor appetite or overeating: not at all 6. Feeling bad about yourself - or that you are a failure or have let yourself or your family down: not at all 7. Trouble concentrating on things, such as reading the newspaper or watching television: not at all 8. Moving or speaking so slowly that other people could have noticed. Or the opposite - being so fidgety or restless that you have been moving around a lot more than usual: not at all 9. Thoughts that you would be better off or of hurting yourself in some way: not at all Total score: 1 Depression Screening Interpretation: Negative Depression Screening Done: Yes 00134 - PHQ-9 Billing: Yes Source: Developed by Drs. David Garrido, Lindsey Mccarthy, Gaston Jacob and colleagues, with an educational osmar from [employer]. Thrive Questionnaire Date Thrive assessed: 03/25/24 I am a: Patient What is your living situation today?: I have a steady place to live Within the past 12 months, did the food you bought not last and you didn't have the money to get more?: Never true Within the past 12 months, did you worry whether your food would run out before you got money to buy more?: Never true Do you have trouble paying for medicines?: No Do you have trouble getting transportation to medical appointments?: No Do you have trouble paying your heating and electricity bill?: No Do you have trouble taking care of your child, family member or friend?: No Do you have trouble with day-to-day activities such as bathing, preparing meals, shopping, managing finances, etc.?: No Are you currently unemployed and looking for a job?: No Are you interested in more education?: No Please select the resources that you would like help with: None Currently or been in a relationship where the following occur: No concerns reported THRIVE Score: 0 AUDIT C Alcohol Use Questionnaire (AUDIT-C) 1. How often do you have a drink containing alcohol?: Monthly or less 2. How many drinks containing alcohol do you have on a typical day when you are drinking?: 1 or 2 3. How often do you have six or more drinks on one occasion?: Never Total Score: 1 Score Reviewed/Action Taken: Yes MT-7 AMB Questionnaire MT-7 Date MT - 7 assessed: 03/25/24 Feeling nervous, anxious, or on edge: 1 = Several days Not being able to stop or control worryin = Not at all Worrying too much about different things: 0 = Not at all Trouble relaxin = Not at all Being so restless that it is hard to sit still: 0 = Not at all Becoming easily annoyed or irritable: 0 = Not at all Feeling afraid as if something awful might happen: 0 = Not at all Total MT-7 score (0-4 normal; 5-9 mild; 10-14 moderate; 15-21 severe): 1 Source: Developed by Drs. David Garrido, Lindsey Mccarthy, Gaston Jacob and colleagues, with an educational osmar from [employer]. Review of Systems Const Denies chills, Reports difficulty sleeping (often wakes up after a few hours and unable to go back to sleep), Denies fatigue, Denies fever(s) and Denies headache(s) ENT Denies dysphagia, Denies dizziness, Denies otalgia, Denies headache(s), Denies neck pain, Denies odynophagia and Denies sore throat Card Denies chest pain, Denies palpitations and Denies dyspnea Resp Denies cough and Denies dyspnea GI Denies abdominal pain, Denies constipation, Denies dysphagia, Denies heartburn, Denies diarrhea, Denies nausea, Denies odynophagia and Denies vomiting Denies dysuria, Denies nocturia and Denies urinary frequency Musc Reports as per HPI, Reports back pain (over the right lower back - see HPI) and Denies neck pain Skin/Breast Denies rash Neuro Denies dizziness and Denies headache(s) Psych Reports anxiety (increased often) Endo Denies fatigue and Denies palpitations Physical exam (Primary Care) Vital Signs: Last Vital Signs Pulse 79 03/25/24 10:48 BP 118/76 03/25/24 10:48 Pulse Ox 97 03/25/24 10:48 Oxygen Delivery Method Room Air 03/25/24 10:48 BMI result Body Mass Index 24.7 Tobacco/Smoking Status: Tobacco use Status Tobacco use date assessed 03/25/24 03/25/24 10:53 Patient Tobacco Use Status Former Tobacco user 03/25/24 10:53 e-Cigarette/Vaping Use Never Used 03/25/24 10:53 PHQ-9: PHQ-9 Score PHQ-9: Total score 1 03/25/24 10:53 Depression Screening Interpretation: Negative Thrive Assessment: Date of Thrive Assessment Date Thrive assessed 03/25/24 03/25/24 10:53 Currently or been in a relationship where the following occur: No concerns reported Const General: no acute distress and alert HENMT Ears: TM's normal bilaterally and EAC's normal Throat: Yes posterior oropharynx normal and Yes tonsils normal (no TP congestion) Neck Neck: Yes no lymphadenopathy and Yes supple Thyroid: Thyroid normal Resp Auscultation: clear to auscultation bilaterally, no rales and no wheezes Cardio Rate: regular rate Rhythm: regular rhythm Heart sounds: no murmurs GI Palpation (GI): Soft to palpation and nontender Auscultation: normal bowel sounds General: Yes no CVA tenderness Back/Spine/Pelvis Back: no CVA tenderness Cervical Spine: No Cervical spine tenderness Thoracic/Lumbar Spine: No lumbar spinal tenderness Skin Rashes: no rashes Extrem General: Yes no clubbing, cyanosis or edema Assessment and Plan Assessment & Plan (1) Pure hypercholesterolemia: Code(s): E78.00 - Pure hypercholesterolemia, unspecified Plan: He has not been able to get his previously ordered follow up labs done yet - states that he will go and get these done later today after his office visit Reinforced low cholesterol diet Continue Atorvastatin 10 mg QD Will recheck his labs and fasting lipids again in 4 months for follow up (2) Benign essential hypertension: Code(s): I10 - Essential (primary) hypertension Plan: Reinforced low sodium diet - goal is systolic BP of at least 130 to 140 mm or less Continue Lisinopril 10 mg QD (3) Gout: Code(s): M10.9 - Gout, unspecified Qualifiers: Gout site: multiple sites Gout etiology: idiopathic Chronicity: chronic Presence of tophus: without tophus Qualified Code(s): M1A.09X0 - Idiopathic chronic gout, multiple sites, without tophus (tophi) Plan: Reinforced low purine diet States that he's had no acute gout flare ups lately - takes Prednisone as needed for acute flare ups Continue Allopurinol 150 mg QD and Colchicine 0.6 mg QD PRN Follow up with rheumatology as scheduled (4) Erectile dysfunction: Code(s): N52.9 - Male erectile dysfunction, unspecified Qualifiers: Erectile dysfunction type: unspecified Qualified Code(s): N52.9 - Male erectile dysfunction, unspecified Plan: Continue Sildenafil 100 mg QD PRN (5) Post traumatic stress disorder (PTSD): Code(s): F43.10 - Post-traumatic stress disorder, unspecified Plan: Continue Lorazepam 1 mg QD PRN Used to take Buspirone but patient stopped it a couple of years ago as he did not feel that it was helping; does not wish to start on any new Rx for now He is advised to call if his anxiety gets worse Follow up with psychiatry as scheduled - therapist is Juan Adhikari III on [facility] in [place] although he states that he has not seen Juan Adhikari III in a few years now Plan Follow up in 4 months Orders: Orders Complete Blood Count Auto Diff 4 Months D64.9 - Anemia, unspecified Lipid Panel 4 Months E78.00 - Pure hypercholesterolemia, unspecified TSH reflex Free T4 4 Months E78.00 - Pure hypercholesterolemia, unspecified Uric Acid 4 Months M10.9 - Gout, unspecified Comprehensive [place]. Panel Fast 4 Months E78.00 - Pure hypercholesterolemia, unspecified UA CC w/rflx Micro + Cult 4 Months R30.0 - Dysuria Vitamin D 25-OH Total 4 Months E55.9 - Vitamin D deficiency, unspecified Coding Level of Care Code Est Pt Level 4 (93351) Diagnoses Pure hypercholesterolemia E78.00 Benign essential hypertension I10 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.09X0 Gout site: multiple sites Gout etiology: idiopathic Chronicity: chronic Presence of tophus: without tophus Erectile dysfunction, unspecified erectile dysfunction type N52.9 Erectile dysfunction type: unspecified Post traumatic stress disorder (PTSD) F43.10
[2024-03-25 10:48] VITALS: BP 118/76; PULSE 79; O2SAT 97; BMI 24.7
== END 2024-03-25 11:29 | disposition home or self-care (01) ==
PROVIDERS: PCP Internal Medicine; Visit Provider Internal Medicine
DX: E78.00 Pure hypercholesterolemia, unspecified (principal); I10 Essential (primary) hypertension; M1A.09X0 Idiopathic chronic gout, multiple sites, without tophus (tophi); N52.9 Male erectile dysfunction, unspecified; F43.10 Post-traumatic stress disorder, unspecified
CPT/HCPCS: 99214

== ENCOUNTER 2024-03-25 12:36 | Outpatient (REF) | payer MEDICARE, SELFPAY ==
[2024-03-25 12:49] LABS: MANUAL DIFF FLAG NO
[2024-03-25 14:01] LABS: Basophils Absolute Auto 0.1 X10*3/uL (0.0-0.2); Basophils Percent Auto 1.1 % (0-2); Eosinophils Absolute Auto 0.2 X10*3/uL (0.0-0.4); Eosinophils Percent Auto 2.5 % (0-4); Hematocrit 45.3 % (42.0-52.0); Hemoglobin 15.2 g/dl (14.0-18.0); Imm Gran Abs Auto 0.02 X10*3/uL (0.00-0.03); Imm Gran Pct Auto 0.3 % (0.0-0.4); Lymphocytes Percent Auto 30.7 % (20-40); Mean Corpuscular HGB Conc 33.6 g/dl (31.0-36.0); Mean Corpuscular Hemoglobin 32.1 pg (27.0-33.0); Mean Corpuscular Volume 95.6 fL (80.0-98.0); Mean Platelet Volume 9.2 fL (9.4-12.4); Monocytes Percent Auto 15.7 % (2-11); Neutrophils Absolute Auto 3.2 x10*3/uL (2.0-8.3); Neutrophils Percent Auto 49.7 % (45-73); Platelet Count 268 X10*3/uL (160-400); Red Blood Count 4.74 X10*6/uL (4.60-5.80); Red Cell Distribution Width 14.3 % (11.0-16.0); White Blood Count 6.5 X10*3/uL (4.8-10.8)
[2024-03-25 14:19] LABS: Alanine Aminotransferase 18 U/L (0-40); Albumin Level 4.3 g/dL (3.5-5.0); Alkaline Phosphatase 57 U/L (39-117); Anion Gap 13 (12-20); Aspartate Amino Transferase 32 U/L (5-37); Bilirubin Total 0.5 mg/dL (0.0-1.0); Blood Urea Nitrogen 14 mg/dL (9-16); Calcium 9.8 mg/dL (8.4-10.2); Carbon Dioxide 26 mmol/L (22-29); Chloride 103 mmol/L (96-108); Cholesterol 216 mg/dL (<200); Estimated Glomerular Filt Rate 58; Glucose Fasting 104 mg/dL (60-99); HDL Cholesterol 96 mg/dL (>40); LDL Cholesterol Calculated 104 mg/dL (<100); Potassium 4.4 mmol/L (3.3-5.1); Sodium 138 mmol/L (135-145); TSH reflex Free T4 0.92 uIU/mL (0.32-4.0); Total Protein 7.3 g/dL (6.5-8.0); Triglycerides 84 mg/dL (<150); Uric Acid 4.7 mg/dL (3.4-7.0)
[2024-03-25 15:29] LABS: Appearance Urine Clear; Color Urine Yellow; Glucose Urine UA Negative (Negative); Leukocyte Esterase Urine Negative (Negative); Nitrite Urine Negative (Negative); PH 7.5 (5.0-9.0); Specific Gravity - Urine <= 1.005 (1.005-1.025); Urine Blood Negative (Negative); Urine Ketones Negative (Negative); Urine Protein Negative (Neg-Trace)
== END 2024-03-25 12:37 | disposition home or self-care (01) ==
LOC: HO.LAB 12:36
PROVIDERS: PCP Internal Medicine; Visit Provider Internal Medicine
DX: D64.9 Anemia, unspecified (principal); E78.00 Pure hypercholesterolemia, unspecified; R30.0 Dysuria; E55.9 Vitamin D deficiency, unspecified; M10.9 Gout, unspecified
CPT/HCPCS: 36415; 80053; 80061; 81003; 82306; 84443; 84550; 85025

== ENCOUNTER 2024-06-16 08:34 | Outpatient (AMB) | payer MEDICARE, SELFPAY ==
--- NOTE | 2024-06-16 08:37 | MHC.OFFVIS ---
Vital Signs 06/16/24 08:38 Height 5 ft 10 in Weight 175 lb 11.335 oz BMI 25.2 BP 140/90 H Blood Pressure Location Lt brachial Position Sitting Pulse 82 Pulse Source Pulse Oximeter Intake Visit Reasons: Gout/cm Intake Note: Patient present today for Gout office visit. 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 At that time patient was stable on 300 mg of allopurinol. His allopurinol was decreased to 150mg Patient states that he tried to decrease his allopurinol but started to notice signs of a possible flare and so he went back up to the 300 mg Did not have a full flare but otherwise has been without flares for a year and a half. Rheumatologic History: Patient with erosive gouty arthritis Current Rheumatology Medication(s): Allopurinol 300mg PFSH Medical History Closed fracture of left distal radius Erectile dysfunction Post traumatic stress disorder (PTSD) Pure hypercholesterolemia Benign essential hypertension Hyperlipidemia Hypertension Gouty arthritis Gout Surgical History Hx of colonoscopy History of appendectomy Family History Father No problems noted. Mother CVD (cardiovascular disease) Brother Alcohol abuse Epileptic seizure Aneurysm Other Substance use disorder Social History Housing: House Alcohol intake: current Alcohol intake frequency: a few times a week Patient Tobacco Use Status: Former Tobacco user e-Cigarette/Vaping Use: Never Used Second Hand Smoke Exposure: Yes service: No Current occupational status: retired Cognitive needs: No Hearing needs: No Vision needs: Yes Review of Systems Const Details: Review of Systems Constitutional: Denies fever, chills, weight loss ENT: Denies vision changes, eye pain or eye redness, dental caries, dry mouth GI: Denies nausea, vomiting, diarrhea, abdominal pain, change in BM Pulm: Denies SOB, HAJI, hemoptysis, wheezing Cards: Denies chest pain, palpitations Skin: Denies Raynaud's, rash, nail changes, photosensitivity, HOT IRON WORKER: Denies headaches, weakness, paresthesias, recurrent falls MSK: as per HPI All other systems reviewed and are unremarkable except noted above Physical Exam Vital Signs: Last Vital Signs Pulse 82 06/16/24 08:38 BP 140/90 H 06/16/24 08:38 BMI result Body Mass Index 25.2 Physical Examination CONSTITUITIONAL Patient alert and cooperative. Well appearing and in no apparent painful distress HEENT Conjunctiva and sclera clear. ?Pupils equal round and reactive to light. ?No tophi noted CHEST/RESPIRATORY SYSTEM Normal respiratory effort and able to speak in complete sentences. ?Clear to auscultation bilaterally. ?No crackles, rales, rhonchi, wheezes heard. CARDIAC SYSTEM Regular rate and rhythm. ?S1 and S2 heard no murmurs. ?Radial pulses intact bilaterally MSK Hands: ?Good rocket motor mechanic strength bilaterally - 5/5. ?No deformities noted. ?No synovitis noted to the MCPs, PIPs or DIPs. ?No tenderness to palpation of these joints. Wrists: ?Full range of motion at the wrists without pain. ?No tenderness to palpation or synovitis noted to the wrists. Elbows: Full range of motion without pain. No tenderness, weakness, swelling, increased warmth or erythema. Shoulders: Full range of motion without pain. No tenderness, weakness, swelling, increased warmth or erythema. Hips: Full range of motion without pain. Knees: ?Full range of motion. ?No tenderness, swelling, increased warmth or erythema.?No effusion or crepitations Ankles: Full range of motion. ?No tenderness, swelling, increased warmth or erythema.? Feet: ?Negative squeeze test. ?No tenderness to palpation or swelling of the MTPs. SKIN Skin intact without rashes. No tophi noted Results Reviewed Results Reviewed: Laboratory Tests 05/01/28/19 03/25/24 16:05 15:45 12:47 WBC 6.5 RBC 4.74 Hgb 15.2 Hct 45.3 Plt Count 268 Sodium 138 Potassium 4.4 Chloride 103 Carbon Dioxide 26 BUN 14 Creatinine 1.24 Uric Acid 4.7 25-OH Vitamin D Total 34.0 Rheumatoid Factor 18.7 H Cycl Citrul Peptide IgG <16 KISHA Screen Negative Assessment & Plan Assessment & Plan (1) Gouty arthritis: Code(s): M10.9 - Gout, unspecified Category: Medical Plan: #Gout Patient is currently at uric acid goal based on last uric acid check. Would not recommend decreasing allopurinol dosage. Continue allopurinol 300 mg. RTC 1 year Plan I spent 20 minutes reviewing the record and labs, seeing the patient, discussing the treatment plan and documenting in the medical record ? Orders: Orders Comprehensive Met. Panel Today M10.9 - Gout, unspecified Erythrocyte Sedimentation Rate Today M10.9 - Gout, unspecified Uric Acid Today M10.9 - Gout, unspecified C Reactive Protein Today M10.9 - Gout, unspecified Coding Level of Care Code Est Pt Level 3 (34148) Diagnoses Gouty arthritis M10.9
[2024-06-16 08:38] VITALS: BP 140/90; PULSE 82; BMI 25.2
--- OUTSIDE RECORDS SUMMARY | 2024-06-22 16:28 | XMS_ITS | Data Portability ---
Author Organization [facility] [address] Address [address] [place] [address] Care Team Providers Care Telephone Cleaner Name Role Phone [facility] Primary Care Provider [phone] Assessment No assessment recorded. Plan of Treatment Reminders Order Date Submit Date Provider Last Modified By Organization Details Last Modified Time Details Appointments None recorded. Lab None recorded. Referral orthopedic surgeon referral - fracture left radius from a fall. Need further evaluation and treatment. 2022 023 [email or web address] 26 [facility], [address] [facility] [place], [address], 3 09:17:18 Procedures None recorded. Surgeries None recorded. Imaging XR, wrist, 3 or more view 2022 023 [facility], [address] [place], [address], 12:40:49 Medication Orders None recorded. Patient TargetsNo targets recorded. Patient Instructions Encounter Date Encounter Id Patient Instructions Last Modified By Organization Details Last Modified Time 09/09/2022 [id number] Your Care Instructions Your wrist hurts because you have stretched or torn ligaments, which connect the bones in your wrist. Wrist sprains usually take from 2 to 10 weeks to heal, but some take longer. Usually, the more pain you have, the more severe your wrist sprain is and the longer it will take to heal. You can heal faster and regain strength in your wrist with good home treatment. Follow-up care is a [place] part of your treatment and safety. Be sure to make and go to all appointments, and call your doctor or nurse advice line ([phone] in most provinces and territories) if you are having problems. It's also a good idea to know your test results and keep a list of the medicines you take. How can you care for yourself at home? Prop up your arm on a pillow when you ice it or anytime you sit or lie down for the next 3 days. Try to keep your wrist above the level of your heart. This will help reduce swelling. Put ice or cold packs on your wrist for 10 to 20 minutes at a time. Try to do this every 1 to 2 hours for the next 3 days (when you are awake) or until the swelling goes down. Put a thin cloth between the ice pack and your skin. After 2 or 3 days, if your swelling is gone, apply a heating pad set on low or a warm cloth to your wrist. This helps keep your wrist flexible. Some doctors suggest that you go back and forth between hot and cold. If you have an elastic bandage, keep it on for the next 24 to 36 hours. The bandage should be snug but not so tight that it causes numbness or tingling. To rewrap the wrist, wrap the bandage around the hand a few times, beginning at the fingers. Then wrap it around the hand between the thumb and index finger, ending by circling the wrist several times. If your doctor gave you a splint or brace, wear it as directed to protect your wrist until it has healed. Take pain medicines exactly as directed. If the doctor gave you a prescription medicine for pain, take it as prescribed. If you are not taking a prescription pain medicine, ask your doctor if you can take an [id number] medicine. Try not to use your injured wrist and hand. When should you call for help? Call your doctor or nurse advice line now or seek immediate medical care if: Your hand or fingers are cool or pale or change colour. Watch closely for changes in your health, and be sure to contact your doctor or nurse advice line if: Your pain gets worse. Your wrist has not improved after 1 week. [email or web address] Not available 09/09/2022 11:09:01 Reason for Referral Orthopedic Surgeon Referral for Closed fracture of distal end of radius fracture left radius from a fall. Need further evaluation and treatment. fracture left radius from a fall. Need further evaluation and treatment. Referring Physician: Suman Clifton, Urgent Care, Encounter Date: 09/09/2022 Results Created Date Observation Date Name Description Value Unit Range Abnormal Flag Note LastModifiedBy Organization Detail LastModifiedTime 09/09/19 23 09/09/2022 XR, wrist , 3 or more view No observ ation record ed. [email or web address] [facility] [address] [place], [address], 09/09/2022 15:36:05 Result Notes None recorded. Procedures Surgical History Date Name Laterality Status Provider Name and Address Organization Details Recorded Time 3 WRIST SPLINT completed Suman Etienne, ROBOT OPERATOR [address], [place], [address], [place] - [facility] 09/09/2022 11:35:40 3 Jose Bandage completed Suman Etienne, ROBOT OPERATOR [address], [place], [address], [place] - [facility] 09/09/2022 11:35:24 Imaging Results Imaging Date Name Status LastModified by Organiz ation Details LastModified Time 09/09/2022 XR, wrist, 3 or more view completed [email or web address] [facility] [address] [place], [address], 09/09/2022 15:36:05 Procedure Notes None recorded. Medical Equipment None Reported. Allergies Allergen ID Allergen Name Allergen Category Reaction Reaction Severity Criticality Documentation Date Start Date Code Code System Note Provider Name and Address Organization Details Recorded Time 21450218 aspirin medicatio n Not available Not available Not available 09/09/2022 1191 RxNorm CARRIANNE MANSOOR null, [place] - [facility] 10:44:10 [id number] Advil medicatio n Not available Not available Not available 09/09/2022 42002 0 RxNorm CARRIANNE MANSOOR null, [place] - [facility] 10:44:18 Medications Name Sig Start Date Stop Date Status Note LastModified by Organization Details LastModified Time lisinopril 10 mg tablet Take 1 tablet every day by oral route. active Not Available Not Available No t Available lorazepam active Not Available Not Alyssa ilable Not Available allopurinol active Not Available Not A vailable Not Available Vitals Date Recorded Body height Body mass index (BMI) Body weight Oxygen saturation Oxygen saturation in Arterial blood by Pulse oximetry Heart rate Respiratory rate Body temperature Systolic blood pressure Diastolic blood pressure Systolic blood pressure Diastolic blood pressure Provider Name and Address Organization Details Last Updated DateTime 3 177.8 cm 23.5 kg/m2 59155.1 5 g 99 % 99 % 75 /min 20 /min 98.2 [degF] 166 mm[Hg] 104 mm[Hg] 158 mm[Hg] 108 mm[Hg] CHRISTIAN MAX PA - [facility] 3 11:07:27 Social History Question Answer Notes LastModified by Organizat ion Details LastModified Time What Is Your Level Of Alcohol Consumption? Occasional Information not available 09/09/2022 How Many Times Per Week Do You Consume Alcohol? 3-4 Times Per Week [email or web address] Information not available 09/09/2022 Have You Had Direct Contact, Or Contact During Intimacy, With Monkeypox Rash, Scabs, Or Body Fluids From A Person With Monkeypox? No [email or web address] Information not available 09/09/2022 Do You Use Any Illicit Or Recreational Drugs? No [email or web address] Information not available 09/09/2022 Have You Recently Traveled Abroad? No [email or web address] Information not available 09/09/2022 Do You Or Have You Ever Used Any Other Forms Of Tobacco Or Nicotine? No [email or web address] Information not available 09/09/2022 Sex: Unknown Functional Status None recorded. Mental Status None recorded. Family History Nothing Reported. Medical History Condition Response Gout Y Cancer, liver N Thyroid disorder N Hyperthyroidism N Rheumatoid arthritis N GI bleeding N Irritable bowel syndrome N Depression N COPD N Tinnitus, unspecified ear N Pneumonia N Cancer, uterus N Mental disorder, NOS N Headaches/Migraines N Insomia N Alzheimer's disease N Anxiety Disorder N Obesity N Arthritis N Cancer N Stroke N Alcohol abuse N Liver disease N Cancer, bladder N Allergy Food/Medication N Peripheral artery disease N Oxygen dependence N Fibromyalgia N Atrial fibrillation N Tinnitus, right ear N Kidney Disease N Deep vein thrombosis DVT leg N Migraine N Disorder of circulatory system N Anxiety N Cancer, brain N Disease of pancreas N Cancer, lung N Eating disorder, unspecified N Cancer, colon N Crohn's disease N Cancer, cervical N N Cancer, breast N Cancer, skin N Coagulation defect, unspecified N Cataract N Asthma N Congestive heart failure (CHF) N Substance Abuse N Vertigo N Coronary artery disease N Pulmonary Embolism N Cancer, pancreas N Tobacco use disorder N Disease of lung N Allergic rhinitis N Joint disorder, unspecified N Menopause N Drug dependence, unspecified N Back disorder N Hypothyroidism N Disorder kidney N Sickle Cell Anemia N Cancer, ovarian N Cueto's Palsy N Disorder of eye N Cancer, prostate N Allergy Seasonal N Drug abuse N Disorder of urinary system N Disorder of lymph system N Radiculopathy, site unspecified N Myoneural disorder, unspecified N Nervous system disorder N ADHD N High Cholesterol Y Post-herpetic neuralgia N Aneurysm, cerebral N Tinnitus, left ear N Prostate hypertrophy, benign N Disorder of skin/subcutaneous N Osteoarthritis N Disorder of ear N Ovarian cysts N Parkinson's disease N Low back pain N Carpal tunnel syndrome N Disorder of muscle N Anemia N Kidney stone N Bipolar affective disorder N Leukemia, unspecified N Diabetes N Endocrine disorder N Disorder involving the immune mechanism N Seizure N Hyperlipidemia N Lymphoma N Emphysema, unspecified N Eczema N Diverticulitis N Dementia N Lupus N Seizure disorder N Reflux/GERD N Sleep Apnea N Cancer, bone N Disorder of thyroid N Cardiac arrhythmia, unspecified N Disorder of bone N Heart Disease N Liver Disorder N Disorder of brain N Hypertension Y Aneurysm, aortic N Osteoporosis N Gastroesophageal reflux (GERD) N Disease of digestive system, unspecified N Immunizations Vaccine Type Date Status Provider Name and Address Organization Details Recorded Time Influenza, split virus, quadrivalent, preservative 04/30/2019 completed CHRISTIAN patino, PA - [facility] 09/09/2022 10:47:36 Influenza, split virus, quadrivalent, preservative 06/23/2018 completed CHRISTIAN patino PA - [facility] 09/09/2022 10:47:36 Influenza, MDCK, quadrivalent, PF 04/25/2020 completed CHRISTIAN patino, PA - [facility] 09/09/2022 10:47:36 Influenza, adjuvanted, quadrivalent, PF 07/19/2021 fabiana patino PA - [facility] 09/09/2022 10:47:36 COVID-19, mRNA, LNP-S, PF, 30 mcg/0.3 mL dose 07/19/2021 completed CHRISTIAN MAX null, PA - [facility] 09/09/2022 10:47:36 COVID-19, mRNA, LNP-S, PF, 30 mcg/0.3 mL dose 10/19/2020 completed CHRISTIAN MAX null, PA - [facility] 09/09/2022 10:47:36 COVID-19, mRNA, LNP-S, PF, 30 mcg/0.3 mL dose 11/10/2020 completed CHRISTIAN MAX null, PA - [facility] 09/09/2022 10:47:36 COVID-19, mRNA, LNP-S, PF, 30 mcg/0.3 mL dose, roger-sucrose 11/26/2021 completed CHRISTIAN MXA null, PA - [facility] 09/09/2022 10:47:36 Influenza, split virus, quadrivalent, PF 06/20/2017 completed CHRISTIAN MAX null, PA - [facility] 09/09/2022 10:47:36 Influenza, split virus, quadrivalent, PF 07/02/2022 completed CHRISTIAN MAX null, PA - [facility] 09/09/2022 10:47:36 Past Encounters Encounter ID Performer Location Encounter Start Date Encounter Closed Date Diagnosis/Indication Diagnosis SNOMED-CT Code Diagnosis ICD10 Code [id number] [place] [address] [address] 09/09/2022 10:07:44 09/09/2022 11:52:32 Sprain of left wrist 1764245566 5838711 S63.502A Closed fra cture of distal end of radius 51647280 S52.502A Health Concerns Section Related Observation LastModified by Organization Detai ls LastModified Time None Recorded Concern Status LastModified by Organization Details LastModified Time None Recorded Advance Directives Directive None Recorded Payers Encounter Date Sequence Insurance Name Policy Number Policy Garza Covered Member ID Garza Member ID Guarantor Name 09/09/2022 1 [facility] [id number] David Burks [id number] David Burks Notes Date Note Type Note Provider Name and Address Organization Details Recorded Time 3 text/html FallReported bypatient.source of patient informationInformation obtained from patient; Patient arrived at Urgent Care ambulatory; learning styles: auditory Location of injuries:head; face; wrist left; hand left Quality:aching Severity:pain scale : 4 Duration:constant Onset/Timing: Onset PTA5 days Context:fell from standing position; slipped; lost balance Aggravating factors:lifting Alleviating factors:ice Associated Symptoms:recalls event; no dizziness Location where injury occurred:home reported medicationsnot currently taking a blood thinner Suman Clifton NP [address] [place], [address], [place] - [facility] 09/09/2022 11:51:12
== END 2024-06-16 09:02 | disposition home or self-care (01) ==
PROVIDERS: PCP Internal Medicine; Visit Provider Student in an Organized Health Care Education/Training Program
DX: M10.9 Gout, unspecified (principal)
CPT/HCPCS: 99213

== ENCOUNTER 2024-06-16 08:34 | Outpatient (REF) | payer MEDICARE, SELFPAY ==
[2024-06-16 12:56] LABS: Alanine Aminotransferase 13 U/L (0-40); Albumin Level 4.4 g/dL (3.5-5.0); Alkaline Phosphatase 55 U/L (39-117); Anion Gap 13 (12-20); Aspartate Amino Transferase 32 U/L (5-37); Bilirubin Total 0.5 mg/dL (0.0-1.0); Blood Urea Nitrogen 21 mg/dL (9-16); C Reactive Protein 0.27 mg/dL (< or = 0.50); Calcium 9.9 mg/dL (8.4-10.2); Carbon Dioxide 28 mmol/L (22-29); Chloride 105 mmol/L (96-108); Estimated Glomerular Filt Rate > 60; Glucose Random 98 mg/dL (60-115); Potassium 4.7 mmol/L (3.3-5.1); Sodium 141 mmol/L (135-145); Total Protein 7.6 g/dL (6.5-8.0); Uric Acid 4.9 mg/dL (3.4-7.0)
[2024-06-16 13:06] LABS: Erythrocyte Sedimentation Rate 4 MM/HR (0-15)
== END 2024-06-16 08:35 | disposition home or self-care (01) ==
LOC: HO.LAB 08:34
PROVIDERS: PCP Internal Medicine; Visit Provider Student in an Organized Health Care Education/Training Program
DX: M10.9 Gout, unspecified (principal)
CPT/HCPCS: 36415; 80053; 84550; 85652; 86140; 99212

== ENCOUNTER 2024-07-09 10:15 | Outpatient (AMB) | payer MEDICARE, SELFPAY ==
[2024-07-09 10:17] VITALS: BP 128/86; PULSE 84; O2SAT 97; BMI 24.7
--- NOTE | 2024-07-09 10:17 | A.OFFPC_ITS ---
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 Accompanied by: Self / Same As Patient Allergies aspirin [ASPIRIN] Allergy (Severe, Verified 07/09/24 10:56) THROAT CLOSES/HIVES NSAIDS (Non-Steroidal Anti-Inflamma [NSAIDS (NON-STEROIDAL ANTI-INFLAMMA] Allergy (Intermediate, Verified 07/09/24 10:56) Hives citalopram Adverse Reaction (Intermediate, Verified 07/09/24 10:56) insomnia, racing thoughts , increased anxiety Medication List - Last Reconciled 07/09/24 by Arvind Torres MD allopurinol 300 mg PO DAILY atorvastatin 10 mg PO BEDTIME 30 days calamine phenolated 1 appl topical TID PRN colchicine 0.6 mg PO DAILY PRN lisinopril 10 mg PO DAILY lorazepam 1 mg PO DAILY PRN 30 days sildenafil 100 mg PO DAILY 30 days Tobacco use date assessed: 07/09/24 Fall risk assessment: No Falls in past year Last assessed Fall Risk: 07/09/24 Dental Screening Dental Screen Date: 07/09/24 Did you have a dental visit in the last 12 months?: Yes Did you have a dental problem in the last 6 months where you did not have access to dental care?: No Was dental information given to patient?: Patient has dentist HPI Annual Exam HPI Details Patient comes in today for his annual physical examination States that he feels okay except for recurrent right shoulder pains recently He denies any recent injury or trauma to his right shoulder and has no Hx of right shoulder problems in the past He denies any headaches or dizziness Denies any chest pains, no SOB No nausea/vomiting, no abdominal pain No change in bowel habits noted Denies any acute urinary symptoms States that he will be needing his Lorazepam Rx refilled in a few days He had his follow up labs done a few weeks ago - to discuss his results He had his screening colonoscopy last done in June 2022 - procedure was normal and he was advised to get a repeat colonoscopy in 10 years (2031) [facility] Medical History Gout Closed fracture of left distal radius Erectile dysfunction Post traumatic stress disorder (PTSD) Pure hypercholesterolemia Benign essential hypertension Hyperlipidemia Hypertension Gouty arthritis Surgical History Hx of colonoscopy History of appendectomy Family History Father No problems noted. Mother CVD (cardiovascular disease) Brother Alcohol abuse Epileptic seizure Aneurysm Other Substance use disorder Social History Housing: House Alcohol intake: current Alcohol intake frequency: a few times a week Patient Tobacco Use Status: Former Tobacco user e-Cigarette/Vaping Use: Never Used Second Hand Smoke Exposure: Yes service: No Current occupational status: retired Cognitive needs: No Hearing needs: No Vision needs: Yes Questionnaire PHQ-9 Over the last 2 weeks, how often have you been bothered by any of the following problems? 1. Little interest or pleasure in doing things: not at all 2. Feeling down, depressed, or hopeless: not at all 3. Trouble falling or staying asleep, or sleeping too much: several days 4. Feeling tired or having little energy: several days 5. Poor appetite or overeating: not at all 6. Feeling bad about yourself - or that you are a failure or have let yourself or your family down: several days 7. Trouble concentrating on things, such as reading the newspaper or watching television: not at all 8. Moving or speaking so slowly that other people could have noticed. Or the opposite - being so fidgety or restless that you have been moving around a lot more than usual: not at all 9. Thoughts that you would be better off or of hurting yourself in some way: not at all Total score: 1 Depression Screening Interpretation: Negative Depression Screening Done: Yes 98356 - PHQ-9 Billing: Yes Source: Developed by Drs. David Garrido, Lindsey Mccarthy, Gaston Jacob and colleagues, with an educational osmar from [employer]. Thrive Questionnaire Date Thrive assessed: 07/09/24 I am a: Patient What is your living situation today?: I have a steady place to live Within the past 12 months, did the food you bought not last and you didn't have the money to get more?: Never true Within the past 12 months, did you worry whether your food would run out before you got money to buy more?: Never true Do you have trouble paying for medicines?: No Do you have trouble getting transportation to medical appointments?: No Do you have trouble paying your heating and electricity bill?: No Do you have trouble taking care of your child, family member or friend?: No Do you have trouble with day-to-day activities such as bathing, preparing meals, shopping, managing finances, etc.?: No Are you currently unemployed and looking for a job?: No Are you interested in more education?: I choose not to answer this question Please select the resources that you would like help with: None Currently or been in a relationship where the following occur: No concerns reported THRIVE Score: 0 AUDIT C Alcohol Use Questionnaire (AUDIT-C) 1. How often do you have a drink containing alcohol?: 2-4 times a month 2. How many drinks containing alcohol do you have on a typical day when you are drinking?: 1 or 2 3. How often do you have six or more drinks on one occasion?: Never Total Score: 2 Score Reviewed/Action Taken: Yes MT-7 AMB Questionnaire MT-7 Date MT - 7 assessed: 07/09/24 Feeling nervous, anxious, or on edge: 3 = Nearly every day Not being able to stop or control worryin = Nearly every day Worrying too much about different things: 2 = More than half the days Trouble relaxin = More than half the days Being so restless that it is hard to sit still: 0 = Not at all Becoming easily annoyed or irritable: 0 = Not at all Feeling afraid as if something awful might happen: 1 = Several days Total MT-7 score (0-4 normal; 5-9 mild; 10-14 moderate; 15-21 severe): 11 Source: Developed by Drs. David Garrido, Lindesy Mccarthy, Gaston Jacob and colleagues, with an educational osmar from [employer]. Review of Systems Const Denies chills, Reports difficulty sleeping (often wakes up after a few hours and unable to go back to sleep), Denies fatigue, Denies fever(s), Denies headache(s) and Denies weakness Eyes Denies blurry vision, Denies change in vision, Denies irritation and Denies i tchy eyes ENT Denies dysphagia, Denies dizziness, Denies otalgia, Denies headache(s), Denies nasal congestion, Denies neck pain, Denies odynophagia and Denies sore throat Card Denies chest pain, Denies rapid heart rate, Denies irregular heart rhythm, Denies palpitations and Denies dyspnea Resp Denies chest congestion, Denies cough, Denies dyspnea and Denies wheezing GI Denies abdominal pain, Denies bloating, Denies constipation, Denies dysphagia, Denies heartburn, Denies diarrhea, Denies nausea, Denies odynophagia and Denies vomiting Denies hematuria, Denies difficulty urinating, Denies dysuria, Denies urinary frequency and Denies urinary urgency Musc Reports back pain (on and off), Reports arthralgias (increased in the right shoulder lately), Denies joint swelling, Denies muscle weakness and Denies neck pain Skin/Breast Denies change in pigmentation, Denies lesions, Denies rash and Denies unusual bruising Neuro Denies dizziness, Denies headache(s), Denies paresthesias and Denies weakness Psych Reports anxiety Endo Denies fatigue and Denies palpitations Aller/Immun Denies itchy eyes and Denies wheezing Physical exam (Primary Care) Vital Signs: Last Vital Signs Pulse 84 07/09/24 10:17 BP 128/86 07/09/24 10:17 Pulse Ox 97 07/09/24 10:17 Oxygen Delivery Method Room Air 07/09/24 10:17 BMI result Body Mass Index 24.7 Tobacco/Smoking Status: Tobacco use Status Tobacco use date assessed 07/09/24 07/09/24 10:22 Patient Tobacco Use Status Former Tobacco user 07/09/24 10:22 e-Cigarette/Vaping Use Never Used 07/09/24 10:22 Depression Screening Interpretation: Negative Thrive Assessment: Date of Thrive Assessment Date Thrive assessed 07/09/24 07/09/24 10:22 Currently or been in a relationship where the following occur: No concerns reported Const General: no acute distress, alert and awake Orientation/consciousness: patient oriented x3 HENMT Head: Yes normocephalic and Yes atraumatic Ears: external ears normal, TM's normal bilaterally and EAC's normal General nose exam: No nasal discharge present Face and sinus: Yes normal facial exam and Yes sinuses nontender Teeth and gingiva: dentition normal Throat: Yes posterior oropharynx normal and Yes tonsils normal (no TP congestion) Eyes Eyelids: Yes eyelids normal Conjunctivae: conjunctivae normal Pupils: Equal, round and reactive pupils present EOM: EOMs intact bilaterally Neck Neck: Yes no lymphadenopathy and Yes supple Thyroid: Thyroid normal Resp Auscultation: clear to auscultation bilaterally, no rales and no wheezes Cardio Rate: regular rate Rhythm: regular rhythm Heart sounds: no murmurs GI Palpation (GI): Soft to palpation, nontender and No hepatosplenomegaly present Auscultation: normal bowel sounds General: Yes no CVA tenderness Back/Spine/Pelvis Back: no CVA tenderness Thoracic/Lumbar Spine: thoracic and lumbar spine normal to inspection Skin Lesions: no lesions Rashes: no rashes Neuro General: patient oriented x3, moves all extremities, no focal motor deficits and CN's II-XI intact bilaterally Cranial nerves: Yes Equal, round and reactive pupils present Cognition (Neuro): normal cognition Gait exam (Neuro): Normal gait present Extrem General: Yes no clubbing, cyanosis or edema Right upper extremity: shoulder/upper arm Details: tenderness Location: of the A-C joint; no swelling Results Reviewed Results Reviewed: Laboratory Tests 03/25/24 03/25/24 06/16/24 12:46 12:47 11:53 WBC 6.5 Hgb 15.2 Hct 45.3 Plt Count 268 ESR 4 Sodium 141 Potassium 4.7 Creatinine 1.16 Estimated GFR > 60 Random Glucose 98 Fasting Glucose 104 H Uric Acid 4.9 Calcium 9.9 AST 32 ALT 13 Triglycerides 84 Cholesterol 216 H LDL Cholesterol, Calc 104 H HDL Cholesterol 96 25-OH Vitamin D Total 34.0 TSH 0.92 Ur Specific [place] <= 1.005 Urine Protein Negative Urine Glucose (UA) Negative Urine Blood Negative Urine Nitrite Negative Ur Leukocyte Esterase Negative Coding Level of Care Code Est Pt Prev Care >65y(36243) Diagnoses Annual physical exam Z00.00 Pure hypercholesterolemia E78.00 Benign essential hypertension I10 Right shoulder pain, unspecified chronicity M25.511 Chronicity: unspecified 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.09X0 Gout site: multiple sites Gout etiology: idiopathic Chronicity: chronic Presence of tophus: without tophus Erectile dysfunction, unspecified erectile dysfunction type N52.9 Erectile dysfunction type: unspecified Post traumatic stress disorder (PTSD) F43.10 Additional Codes PHQ-9 - 23290 - PHQ-9 Billing: Yes ([id number]) Assessment & Plan Assessment & Plan (1) Annual physical exam: Code(s): Z00.00 - Encounter for general adult medical examination without abnormal findings Category: Medical Plan: Results of his labs done a few weeks ago reviewed and discussed with patient He is up-to-date with his colon cancer screening - last had screening colonoscopy done in June 2022 and is due for repeat in 10 years (2031) (2) Pure hypercholesterolemia: Code(s): E78.00 - Pure hypercholesterolemia, unspecified Category: Medical Plan: Patient is advised that his cholesterol levels on his recent labs were within acceptable range Reinforced low cholesterol diet Continue Atorvastatin 10 mg QD Will recheck his labs and fasting lipids in 4 months for follow up (3) Benign essential hypertension: Code(s): I10 - Essential (primary) hypertension Category: Medical Plan: Reinforced low sodium diet - goal is systolic BP of 120 to 130 mm or less Continue Lisinopril 10 mg QD Patient is reminded to continue monitoring his blood pressure regularly (4) Right shoulder pain: Code(s): M25.511 - Pain in right shoulder Category: Medical Qualifiers: Chronicity: unspecified Qualified Code(s): M25.511 - Pain in right shoulder Plan: Will send him for x-rays of the right shoulder for further evaluation Discussed that it is likely he has some bursitis or tendinitis or degenerative osteoarthritis of the right shoulder and if his symptoms progress, can consider referring him to physical therapy for further evaluation and recommendations (5) Gout: Code(s): M10.9 - Gout, unspecified Category: Medical Qualifiers: Gout site: multiple sites Gout etiology: idiopathic Chronicity: chronic Presence of tophus: without tophus Qualified Code(s): M1A.09X0 - Idiopathic chronic gout, multiple sites, without tophus (tophi) Plan: Reinforced low purine diet States that he's had no acute gout flare ups in a while now - takes Prednisone as needed for acute flare ups Continue Allopurinol 300 mg QD and Colchicine 0.6 mg QD PRN Follow up with rheumatology as scheduled - sees rheumatology now just once a year (6) Erectile dysfunction: Code(s): N52.9 - Male erectile dysfunction, unspecified Category: Medical Qualifiers: Erectile dysfunction type: unspecified Qualified Code(s): N52.9 - Male erectile dysfunction, unspecified Plan: Continue Sildenafil 100 mg QD PRN (7) Post traumatic stress disorder (PTSD): Code(s): F43.10 - Post-traumatic stress disorder, unspecified Category: Medical Plan: Continue Lorazepam 1 mg QD PRN He used to take Buspirone but patient stopped it a couple of years ago as he did not feel that it was helping; does not wish to start on any new Rx for now He is advised to call if his anxiety gets worse Follow up with psychiatry as scheduled - therapist is Juan Adhikari III on [facility] in [place] although he states that he has not seen Juan Adhikari III in a few years now Plan Follow up in 4 months Orders: Orders XR shoulder RT min 2V Today M25.511 - Pain in right shoulder Complete Blood Count Auto Diff 4 Months D64.9 - Anemia, unspecified, Z00.00 - Encounter for general adult medical examination without abnormal findings Lipid Panel 4 Months E78.00 - Pure hypercholesterolemia, unspecified, Z00.00 - Encounter for general adult medical examination without abnormal findings UA CC w/rflx Micro + Cult 4 Months R30.0 - Dysuria, Z00.00 - Encounter for general adult medical examination without abnormal findings Uric Acid 4 Months M10.9 - Gout, unspecified, Z00.00 - Encounter for general adult medical examination without abnormal findings Prostate Specific Antigen 4 Months N40.0 - Benign prostatic hyperplasia without lower urinary tract symptoms, Z00.00 - Encounter for general adult medical examination without abnormal findings Comprehensive [place]. Panel Fast 4 Months E78.00 - Pure hypercholesterolemia, unspecified, Z00.00 - Encounter for general adult medical examination without abnormal findings TSH reflex Free T4 4 Months E78.00 - Pure hypercholesterolemia, unspecified, Z00.00 - Encounter for general adult medical examination without abnormal findings Erythrocyte Sedimentation Rate 4 Months M79.7 - Fibromyalgia, Z00.00 - Encounter for general adult medical examination without abnormal findings Vitamin D 25-OH Total 4 Months E55.9 - Vitamin D deficiency, unspecified, Z00 .00 - Encounter for general adult medical examination without abnormal findings Medications: Refilled lorazepam 1 mg PO DAILY 30 days PRN 30 tabs 1RF anxiety
--- OUTSIDE RECORDS SUMMARY | 2024-07-09 10:17 | XMS_ITS | Data Portability ---
Author Organization [facility] [address] Address [address] [place] [address] Care Team Providers Care Correctional Counselor Name Role Phone [facility] Primary Care Provider Assessment No assessment recorded. Plan of Treatment Reminders Order Date Submit Date Provider Last Modified By Organization Details Last Modified Time Details Appointments None recorded. Lab None recorded. Referral orthopedic surgeon referral - fracture left radius from a fall. Need further evaluation and treatment. 2022 023 [email or web address] [address] [facility], [address] [facility] [place], [address], 3 09:17:18 Procedures None recorded. Surgeries None recorded. Imaging XR, wrist, 3 or more view 2022 023 [facility], [address] [place], [address], 12:40:49 Medication Orders None recorded. Patient TargetsNo targets recorded. Patient Instructions Encounter Date Encounter Id Patient Instructions Last Modified By Organization Details Last Modified Time 09/09/2022 [id number] Your Care Instructions Your wrist hurts because [...] your doctor if you can take an [id number] medicine. Try not to use your injured [...] ed. [email or web address] [facility] [address] [place], [address], 09/09/2022 15:36:05 Result Notes None recorded. Procedures Surgical History Date Name Laterality Status Provider Name and Address Organization Details Recorded Time 3 WRIST SPLINT completed Suman Etienne, [employer]OLE[employer]INTER [address] [place], [place], [address], [place] - [facility] 09/09/2022 11:35:40 3 Jose Bandage completed Suman Etienne, [employer]OLEUM PRINTER [address], [place], [address], [place] - [facility] 09/09/2022 11:35:24 Imaging Results Imaging Date Name Status LastModified by Organiz ation Details LastModified Time 09/09/2022 XR, wrist, 3 or more view completed [email or web address] [facility] [address] [place], [address], 09/09/2022 15:36:05 Procedure Notes None recorded. Medical Equipment None Reported. Allergies Allergen ID Allergen Name Allergen Category Reaction Reaction Severity Criticality Documentation Date Start Date Code Code System Note Provider Name and Address Organization Details Recorded Time [id number] aspirin medicatio n Not available Not available Not available 09/09/2022 1191 RxNorm CARRIANNE MANSOOR null, [place] - [facility] 10:44:10 [id number] Advil medicatio n Not available Not available Not available 09/09/2022 21199 0 RxNorm CARRIANNE MANSOOR null, PA - [...] Updated DateTime 3 177.8 cm 23.5 kg/m2 59440.1 5 g 99 % 99 % 75 [...] You Consume Alcohol? 3-4 Times Per Week [email or web address] Information not available 09/09/2022 Have You Had Direct Contact, Or Contact During Intimacy, With Monkeypox Rash, Scabs, Or Body Fluids From A Person With Monkeypox? No [email or web address] Information not available 09/09/2022 Do You Use Any Illicit Or Recreational Drugs? No [email or web address] Information not available 09/09/2022 Have You Recently Traveled Abroad? No [email or web address] Information not available 09/09/2022 Do You Or Have You Ever Used Any Other Forms Of Tobacco Or Nicotine? No [email or web address] Information not available 09/09/2022 Sex: Unknown Functional [...] unspecified N Immunizations Vaccine Type Date Status Note Provider Nam e and Address Organization Details Recorded Time Influenza, split virus, quadrivalent, preservative 9 completed CHRISTIAN MAX null, [place] - [facility] 09/09/2022 10:47:36 Influenza, split virus, quadrivalent, preservative 8 completed CHRISTIAN MAX null, [place] - [facility] 09/09/2022 10:47:36 Influenza, MDCK, quadrivalent, PF 0 completed CHRISTIAN patino, [place] - [facility] 09/09/2022 10:47:36 Influenza, adjuvanted, quadrivalent, PF 2 completed CARRIANNE MANSOOR null, [place] - [facility] 09/09/2022 10:47:36 COVID-19, mRNA, LNP-S, PF, 30 mcg/0.3 mL dose 2 completed CARRIANNE MANSOOR null, [place] - [facility] 09/09/2022 10:47:36 COVID-19, mRNA, LNP-S, PF, 30 mcg/0.3 mL dose 1 completed CARRILIYAHE MANSOOR null, PA - [facility] 09/09/2022 10:47:36 COVID-19, mRNA, LNP-S, PF, 30 mcg/0.3 mL dose 1 completed CARRILIYAHE MANSOOR null, [place] - [facility] 09/09/2022 10:47:36 COVID-19, mRNA, LNP-S, PF, 30 mcg/0.3 mL dose, roger-sucrose 2 completed CARRILIYAHE MANSOOR null, [place] - [facility] 09/09/2022 10:47:36 Influenza, split virus, quadrivalent, PF 7 completed CARRIANNE MANSOOR null, PA - [facility] 09/09/2022 10:47:36 Influenza, split virus, quadrivalent, PF 2 completed CARRIANNE MANSOOR null, [place] - [facility] 09/09/2022 10:47:36 Past Encounters Encounter ID Performer Location Encounter Start Date Encounter Closed Date Diagnosis/Indication Diagnosis SNOMED-CT Code Diagnosis ICD10 [place] [id number] [address] [address] 09/09/2022 10:07:44 09/09/2022 11:52:32 Sprain of left wrist [id number] S63.502A Closed fra cture of distal end of radius [id number] S52.502A Health Concerns Section Related Observation LastModified by Organization Detai ls LastModified Time None Recorded Concern Status LastModified by Organization Details LastModified Time None Recorded Advance Directives Directive None Recorded Payers Encounter Date Sequence Insurance Name Policy Number Policy Garza Covered Member ID Garza Member ID Guarantor Name 09/09/2022 1 [facility] [id number] David Burks [id number] David Burks Notes Date Note Type Note [...] Clifton NP [address] [place], [address], [place] - [facility] 09/09/2022 11:51:12
== END 2024-07-09 11:22 | disposition home or self-care (01) ==
PROVIDERS: PCP Internal Medicine; Visit Provider Internal Medicine
DX: Z00.00 Encounter for general adult medical examination without abnormal findings (principal); E78.00 Pure hypercholesterolemia, unspecified; I10 Essential (primary) hypertension; M25.511 Pain in right shoulder; M1A.09X0 Idiopathic chronic gout, multiple sites, without tophus (tophi); N52.9 Male erectile dysfunction, unspecified; F43.10 Post-traumatic stress disorder, unspecified

== ENCOUNTER → 2024-07-09 10:15 | Outpatient (BNVA) | payer MEDICARE, SELFPAY | PROVIDERS: PCP Internal Medicine; Visit Provider Internal Medicine | DX: Z00.00 Encounter for general adult medical examination without abnormal findings (principal); E78.00 Pure hypercholesterolemia, unspecified; I10 Essential (primary) hypertension; M25.511 Pain in right shoulder; M1A.09X0 Idiopathic chronic gout, multiple sites, without tophus (tophi); N52.9 Male erectile dysfunction, unspecified; F43.10 Post-traumatic stress disorder, unspecified | CPT/HCPCS: 96127; 99397 ==

== ENCOUNTER 2024-11-05 12:59 | Outpatient (REF) | payer MEDICARE, SELFPAY ==
[2024-11-05 13:19] LABS: MANUAL DIFF FLAG NO
[2024-11-05 13:39] LABS: Basophils Percent Auto 0.5 % (0-2); Eosinophils Absolute Auto 0.1 X10*3/uL (0.0-0.4); Eosinophils Percent Auto 0.8 % (0-4); Hematocrit 44.4 % (42.0-52.0); Hemoglobin 15.3 g/dl (14.0-18.0); Imm Gran Abs Auto 0.02 X10*3/uL (0.00-0.03); Imm Gran Pct Auto 0.3 % (0.0-0.4); Lymphocytes Absolute Auto 2.5 X10*3/uL (1.2-4.9); Mean Corpuscular HGB Conc 34.5 g/dl (31.0-36.0); Mean Corpuscular Hemoglobin 32.1 pg (27.0-33.0); Mean Corpuscular Volume 93.3 fL (80.0-98.0); Mean Platelet Volume 9.2 fL (9.4-12.4); Monocytes Absolute Auto 0.7 X10*3/uL (0.1-1.2); Monocytes Percent Auto 8.6 % (2-11); Neutrophils Absolute Auto 4.4 x10*3/uL (2.0-8.3); Neutrophils Percent Auto 56.8 % (45-73); Platelet Count 239 X10*3/uL (160-400); Red Blood Count 4.76 X10*6/uL (4.60-5.80); Red Cell Distribution Width 13.5 % (11.0-16.0); White Blood Count 7.7 X10*3/uL (4.8-10.8)
--- OUTSIDE RECORDS SUMMARY | 2024-11-05 13:45 | XMS_ITS | Data Portability ---
Author Organization [facility] [address] Address [address] [place] [address] Care Team Providers Care Catering Convention Services Manager Name Role Phone [facility] Primary Care Provider Assessment No assessment recorded. Plan of Treatment Reminders Order Date Submit Date Provider Last Modified By Organization Details Last Modified Time Details Appointments None recorded . Lab None recorded . Referral orthoped ic surgeon referral - fracture left radius from a fall. Need further evaluati on and treatmen t. 2022 023 [email or web address] [address] [facility] (Derek Lloyd), [address] [facility] [place], [address], 3 09:17:18 Procedures None recorded . Surgeries None recorded . Imaging XR, wrist, 3 or more view 2022 023 [facility], [address] [place], [address], 3 12:40:49 Medication Orders None recorded . Patient TargetsNo targets recorded. Patient Instructions Encounter Date Encounter Id Patient Instructions Last Modified By Organization Details Last Modified Time 09/09/2022 [id number] Your Care Instructions Your wrist hurts because [...] call your doctor or nurse advice line ([phone] in most provinces and territories) if you [...] your doctor if you can take an byyd-hvc-imrhfns medicine. Try not to use your injured [...] ed. [email or web address] [facility] [address] [place], [address], 09/09/2022 15:36:05 Result Notes None recorded. Procedures Surgical History Date Name Laterality Status Provider Name and Address Organization Details Recorded Time WRIST SPLINT completed Suman Clifton, LEAD MANUFACTURING ENGINEER [address], [place], [address], [place] - [facility] 09/09/2022 11:35:40 3 Jose Bandage completed Suman Clifton LEAD MANUFACTURING ENGINEER [address], [place], [address], [place] - [facility] 09/09/2022 11:35:24 Imaging Results Imaging Date Name Status LastModified by Organiz ation Details LastModified Time 09/09/2022 XR, wrist, 3 or more view completed [email or web address] [address] [place], [address], 09/09/2022 15:36:05 Procedure Notes None recorded. Medical Equipment None Reported. Allergies Allergen ID Allergen Name Allergen Category Reaction Reaction Severity Criticality Documentation Date Start Date Code Code System Note Provider Name and Address Organization Details Recorded Time [id number] aspirin medicatio n Not available Not available Not available 09/09/2022 1191 RxNorm CARRIANNE MANSOOR null, PA - [facility] 10:44:10 032878 Advil medicatio n Not available Not available Not available 09/09/2022 74414 0 RxNorm CARRIANNE MANSOOR null, PA - [...] Updated DateTime 3 177.8 cm 23.5 kg/m2 12086.1 5 g 99 % 99 % 75 /min 20 /min 98.2 [degF] 166 mm[Hg] 104 mm[Hg] 158 mm[Hg] 108 mm[Hg] CHRISTIAN MAX PA - [facility] 3 11:07:27 Social History Question Answer Notes LastModified by [employer] [place] ion Details LastModified Time What Is Your Level Of Alcohol Consumption? Occasional [email or web address] Information not available 09/09/2022 How Many Times Per Week Do You Consume Alcohol? 3-4 Times Per Week Information not available 09/09/2022 Have You Had Direct Contact, Or Contact During Intimacy, With Monkeypox Rash, Scabs, Or Body Fluids From A Person With Monkeypox? No [email or web address] Information not available 09/09/2022 Do You Use Any Illicit Or Recreational Drugs? No [email or web address] Information not available 09/09/2022 Have You Recently Traveled Abroad? No [email or web address] Information not available 09/09/2022 Do You Or Have You Ever Used Any Other Forms Of Tobacco Or Nicotine? No [email or web address] Information not available 09/09/2022 Sex: Unknown Functional [...] split virus, quadrivalent, preservative 8 completed CHRISTIAN patino, PA - [facility] [...] PF, 30 mcg/0.3 mL dose 1 completed CARRIANNE MANSOOR null, PA - [facility] 09/09/2022 10:47:36 COVID-19, mRNA, LNP-S, PF, 30 mcg/0.3 mL dose 1 completed CARRIANNE MANSOOR null, PA - [facility] 09/09/2022 10:47:36 COVID-19, mRNA, LNP-S, PF, 30 mcg/0.3 mL dose, roger-sucrose 2 completed CARRIANNE MANSOOR null, PA - [facility] 09/09/2022 10:47:36 Influenza, split virus, quadrivalent, PF 7 completed CARRIANNE MANSOOR null, PA - [facility] 09/09/2022 10:47:36 Influenza, split virus, quadrivalent, PF 2 completed CARRIANNE MANSOOR null, PA - [facility] 09/09/2022 10:47:36 Past Encounters Encounter ID Performer Location Encounter Start Date Encounter Closed Date Diagnosis/Indication Diagnosis SNOMED-CT Code Diagnosis ICD10 Code Diagnosis Note [id number] Suman Clifton, AMILCAR [address] [facility] [address] [place] [address] 09/09/2022 10:07:44 09/09/2022 11:52:32 Sprain of left wrist 4512802681 1647449 S63.502A Closed fra cture of distal end of radius [id number] S52.502A Health Concerns Section Related Observation LastModified by Organization Detai ls LastModified Time None Recorded Concern Status LastModified by Organization Details LastModified Time None Recorded Advance Directives Directive None Recorded Payers Encounter Date Sequence Insurance Name Policy Number Policy Garza Covered Member ID Garza Member ID Guarantor Name 09/09/2022 1 [facility] [id number] David Burks [id number] David Burks Notes Date Note Type Note [...] Clifton NP [address] [place], [address], [place] - [facility] 09/09/2022 11:51:12
[2024-11-05 13:47] LABS: Appearance Urine Clear; Color Urine Yellow; Glucose Urine UA Negative (Negative); Leukocyte Esterase Urine Negative (Negative); Nitrite Urine Negative (Negative); PH 5.5 (5.0-9.0); Urine Blood Negative (Negative); Urine Ketones Negative (Negative); Urine Protein Negative (Neg-Trace)
[2024-11-05 14:11] LABS: Alanine Aminotransferase 12 U/L (0-40); Albumin Level 4.4 g/dL (3.5-5.0); Alkaline Phosphatase 52 U/L (39-117); Anion Gap 9 (12-20); Aspartate Amino Transferase 28 U/L (5-37); Bilirubin Total 0.6 mg/dL (0.0-1.0); Blood Urea Nitrogen 19 mg/dL (9-16); Calcium 9.7 mg/dL (8.4-10.2); Carbon Dioxide 28 mmol/L (22-29); Chloride 104 mmol/L (96-108); Cholesterol 207 mg/dL (<200); Estimated Glomerular Filt Rate > 60; Glucose Fasting 97 mg/dL (60-99); HDL Cholesterol 72 mg/dL (>40); LDL Cholesterol Calculated 113 mg/dL (<100); Potassium 4.3 mmol/L (3.3-5.1); Sodium 137 mmol/L (135-145); Total Protein 7.4 g/dL (6.5-8.0); Triglycerides 113 mg/dL (<150); Uric Acid 4.3 mg/dL (3.4-7.0)
[2024-11-05 14:25] LABS: TSH reflex Free T4 1.36 uIU/mL (0.32-4.0); Vitamin D 25-OH Total 25.3 ng/mL (>30)
[2024-11-05 14:26] LABS: Prostate Specific Antigen 0.71 ng/mL (<0.05-4.0)
[2024-11-05 14:28] LABS: Erythrocyte Sedimentation Rate 7 MM/HR (0-15)
== END 2024-11-05 13:00 | disposition home or self-care (01) ==
LOC: HO.LAB 12:59
PROVIDERS: PCP Internal Medicine; Visit Provider Internal Medicine
DX: Z00.00 Encounter for general adult medical examination without abnormal findings (principal); E78.00 Pure hypercholesterolemia, unspecified; D64.9 Anemia, unspecified; R30.0 Dysuria; M10.9 Gout, unspecified; N40.0 Benign prostatic hyperplasia without lower urinary tract symptoms; M79.7 Fibromyalgia; E55.9 Vitamin D deficiency, unspecified; Z12.5 Encounter for screening for malignant neoplasm of prostate
CPT/HCPCS: 36415; 80053; 80061; 81003; 82306; 84153; 84443; 84550; 85025; 85652

== ENCOUNTER 2024-11-08 10:30 | Outpatient (AMB) | payer MEDICARE, SELFPAY ==
[2024-11-08 10:32] VITALS: BP 110/86; PULSE 73; O2SAT 96; BMI 24.1
--- NOTE | 2024-11-08 10:32 | A.OFFPC_ITS ---
Vital Signs 11/08/24 10:32 Height 5 ft 10 in Weight 168 lb BMI 24.1 BP 110/86 Blood Pressure Location Lt brachial Position Sitting Pulse 73 Pulse Source Pulse Oximeter Pulse Oximetry (%) 96 Oxygen Delivery Method Room Air Intake Visit Reasons: hyperlipidemia, HTN, gout, PTSD Mailing Jogger Required: No Accompanied by: Self / Same As Patient Allergies aspirin [ASPIRIN] Allergy (Severe, Verified 11/08/24 10:59) THROAT CLOSES/HIVES NSAIDS (Non-Steroidal Anti-Inflamma [NSAIDS (NON-STEROIDAL ANTI-INFLAMMA] Allergy (Intermediate, Verified 11/08/24 10:59) Hives citalopram Adverse Reaction (Intermediate, Verified 11/08/24 10:59) insomnia, racing thoughts , increased anxiety Medication List - Last Reconciled 11/08/24 by Arvind Torres MD allopurinol 300 mg PO DAILY atorvastatin 10 mg PO BEDTIME 30 days calamine phenolated 1 appl topical TID PRN colchicine 0.6 mg PO DAILY PRN lisinopril 10 mg PO DAILY lorazepam 1 mg PO DAILY PRN 30 days sildenafil 100 mg PO DAILY 30 days Tobacco use date assessed: 11/08/24 Fall risk assessment: No Falls in past year Last assessed Fall Risk: 11/08/24 Dental Screening Dental Screen Date: 11/08/24 Did you have a dental visit in the last 12 months?: Yes Did you have a dental problem in the last 6 months where you did not have access to dental care?: No Was dental information given to patient?: Patient has dentist HPI hyperlipidemia, HTN, gout, PTSD HPI Details Patient comes in today for his follow up visit States that he feels okay He denies any headaches or dizziness Denies any chest pains, no SOB No nausea/vomiting, no abdominal pain No change in bowel habits noted Notes that he still has on and off pain over his right lower back, that flares up when he has been sitting down for a while - thinks that he has sciatica States that the pain radiates down his right buttock and behind his right thigh and would ease up once he gets up and starts moving around for a few seconds He denies any weakness of the right leg and has no acute bowel or bladder issues He needs his Lorazepam Rx refilled today He had his follow up labs done a few days ago - to discuss his results [facility] Medical History Lumbar degenerative disc disease Vitamin D deficiency Gout Closed fracture of left distal radius Erectile dysfunction Post traumatic stress disorder (PTSD) Pure hypercholesterolemia Benign essential hypertension Hyperlipidemia Hypertension Gouty arthritis Surgical History Hx of colonoscopy History of appendectomy Family History Father No problems noted. Mother CVD (cardiovascular disease) Brother Alcohol abuse Epileptic seizure Aneurysm Other Substance use disorder Social History Housing: House Alcohol intake: current Alcohol intake frequency: a few times a week Patient Tobacco Use Status: Former Tobacco user e-Cigarette/Vaping Use: Never Used Second Hand Smoke Exposure: Yes service: No Current occupational status: retired Cognitive needs: No Hearing needs: No Vision needs: Yes Questionnaire PHQ-9 Over the last 2 weeks, how often have you been bothered by any of the following problems? 1. Little interest or pleasure in doing things: not at all 2. Feeling down, depressed, or hopeless: not at all 3. Trouble falling or staying asleep, or sleeping too much: not at all 4. Feeling tired or having little energy: not at all 5. Poor appetite or overeating: not at all 6. Feeling bad about yourself - or that you are a failure or have let yourself or your family down: not at all 7. Trouble concentrating on things, such as reading the newspaper or watching television: not at all 8. Moving or speaking so slowly that other people could have noticed. Or the opposite - being so fidgety or restless that you have been moving around a lot more than usual: not at all 9. Thoughts that you would be better off or of hurting yourself in some way: not at all Total score: 0 Depression Screening Interpretation: Negative Depression Screening Done: Yes 04667 - PHQ-9 Billing: Yes Source: Developed by Drs. David Garrido, Lindsey Mccarthy, Gaston Jacob and colleagues, with an educational osmar from [employer]. Thrive Questionnaire Date Thrive assessed: 11/08/24 I am a: Patient What is your living situation today?: I have a steady place to live Within the past 12 months, did the food you bought not last and you didn't have the money to get more?: Never true Within the past 12 months, did you worry whether your food would run out before you got money to buy more?: Never true Do you have trouble paying for medicines?: I choose not to answer this question Do you have trouble getting transportation to medical appointments?: No Do you have trouble paying your heating and electricity bill?: I choose not to answer this question Do you have trouble taking care of your child, family member or friend?: No Do you have trouble with day-to-day activities such as bathing, preparing meals, shopping, managing finances, etc.?: No Are you currently unemployed and looking for a job?: No Are you interested in more education?: I choose not to answer this question Please select the resources that you would like help with: None Currently or been in a relationship where the following occur: No concerns reported THRIVE Score: 0 AUDIT C Alcohol Use Questionnaire (AUDIT-C) 1. How often do you have a drink containing alcohol?: 2-4 times a month 2. How many drinks containing alcohol do you have on a typical day when you are drinking?: 1 or 2 3. How often do you have six or more drinks on one occasion?: Never Total Score: 2 Score Reviewed/Action Taken: Yes MT-7 AMB Questionnaire MT-7 Date MT - 7 assessed: 11/08/24 Feeling nervous, anxious, or on edge: 1 = Several days Not being able to stop or control worryin = Several days Worrying too much about different things: 1 = Several days Trouble relaxin = Several days Being so restless that it is hard to sit still: 0 = Not at all Becoming easily annoyed or irritable: 1 = Several days Feeling afraid as if something awful might happen: 1 = Several days Total MT-7 score (0-4 normal; 5-9 mild; 10-14 moderate; 15-21 severe): 6 Source: Developed by Drs. David Garrido, Lindsey Mccarthy, Gaston Jacob and colleagues, with an educational osmar from [employer]. Review of Systems Const Denies chills, Reports difficulty sleeping (often wakes up after a few hours and unable to go back to sleep), Denies fatigue, Denies fever(s) and Denies headache(s) ENT Denies dysphagia, Denies dizziness, Denies otalgia, Denies headache(s), Denies neck pain, Denies odynophagia and Denies sore throat Card Denies chest pain, Denies irregular heart rhythm, Denies palpitations and Denies dyspnea Resp Denies chest congestion, Denies cough and Denies dyspnea GI Denies abdominal pain, Denies constipation, Denies dysphagia, Denies heartburn, Denies diarrhea, Denies nausea, Denies odynophagia and Denies vomiting Denies difficulty urinating, Denies dysuria and Denies urinary frequency Musc Reports back pain (on and off, especially over the right lower back), Reports arthralgias (in the right shoulder), Denies neck pain and Reports radiating pain into limb (down the right buttocks and back of right thigh at times) Skin/Breast Denies rash Neuro Denies dizziness, Denies headache(s) and Denies paresthesias Psych Reports anxiety Endo Denies fatigue and Denies palpitations Physical exam (Primary Care) Vital Signs: Last Vital Signs Pulse 73 11/08/24 10:32 BP 110/86 11/08/24 10:32 Pulse Ox 96 11/08/24 10:32 Oxygen Delivery Method Room Air 11/08/24 10:32 BMI result Body Mass Index 24.1 Tobacco/Smoking Status: Tobacco use Status Tobacco use date assessed 11/08/24 11/08/24 10:39 Patient Tobacco Use Status Former Tobacco user 11/08/24 10:39 e-Cigarette/Vaping Use Never Used 11/08/24 10:39 PHQ-9: PHQ-9 Score PHQ-9: Total score 0 11/08/24 10:39 Depression Screening Interpretation: Negative Thrive Assessment: Date of Thrive Assessment Date Thrive assessed 11/08/24 11/08/24 10:39 Currently or been in a relationship where the following occur: No concerns reported Const General: no acute distress and alert HENMT Ears: TM's normal bilaterally and EAC's normal Throat: Yes posterior oropharynx normal and Yes tonsils normal (no TP congestion) Neck Neck: Yes no lymphadenopathy and Yes supple Thyroid: Thyroid normal Resp Auscultation: clear to auscultation bilaterally, no rales and no wheezes Cardio Rate: regular rate Rhythm: regular rhythm Heart sounds: no murmurs GI Palpation (GI): Soft to palpation and nontender Auscultation: normal bowel sounds General: Yes no CVA tenderness Back/Spine/Pelvis Back: no CVA tenderness Thoracic/Lumbar Spine: straight leg raise negative bilaterally, paraspinal muscle tenderness on the right in the mid lumbar and in the lower lumbar and lumbar spinal tenderness (mild) Skin Rashes: no rashes Extrem General: Yes no clubbing, cyanosis or edema Right upper extremity: shoulder/upper arm Details: tenderness Location: of the A-C joint; no swelling Results Reviewed Results Reviewed: Laboratory Tests 11/05/24 11/05/24 13:14 13:17 WBC 7.7 Hgb 15.3 Hct 44.4 Plt Count 239 ESR 7 Sodium 137 Potassium 4.3 Creatinine 0.80 Estimated GFR > 60 Fasting Glucose 97 Uric Acid 4.3 Calcium 9.7 AST 28 ALT 12 Triglycerides 113 Cholesterol 207 H LDL Cholesterol, Calc 113 H HDL Cholesterol 72 Prostate Specific Ag 0.71 25-OH Vitamin D Total 25.3 L TSH 1.36 Ur Specific [employer] 1.010 Urine Protein Negative Urine Glucose (UA) Negative Urine Blood Negative Urine Nitrite Negative Ur Leukocyte Esterase Negative Coding Level of Care Code Est Pt Level 4 (70574) Complex EM visit Add On G2211 Diagnoses Pure hypercholesterolemia E78.00 Benign essential hypertension I10 Right shoulder pain, unspecified chronicity M25.511 Chronicity: unspecified Vitamin D deficiency E55.9 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.09X0 Gout site: multiple sites Gout etiology: idiopathic Chronicity: chronic Presence of tophus: without tophus Degeneration of intervertebral disc of lumbar region with discogenic back pain and lower extremity pain M51.362 Disc-related pain type: discogenic back pain and lower extremity pain Back pain with right-sided radiculopathy M54.10 Erectile dysfunction, unspecified erectile dysfunction type N52.9 Erectile dysfunction type: unspecified Post traumatic stress disorder (PTSD) F43.10 Additional Codes PHQ-9 - 58330 - PHQ-9 Billing: Yes ([id number]) Assessment & Plan Assessment & Plan (1) Pure hypercholesterolemia: Code(s): E78.00 - Pure hypercholesterolemia, unspecified Category: Medical Plan: Results of his labs done a few days ago reviewed and discussed with patient - he is advised that his cholesterol levels have gone up slightly from previous Reinforced low cholesterol diet - patient admits to poor compliance with his diet at times lately and states that he eats about 2 eggs everyday Continue Atorvastatin 10 mg QD for now but advised that we may need to increase this if his cholesterol numbers still do not show any significant improvement over the next few months Will recheck his labs and fasting lipids in 4 months for follow up (2) Benign essential hypertension: Code(s): I10 - Essential (primary) hypertension Category: Medical Plan: Reinforced low sodium diet - goal is systolic BP of 120 to 130 mm or less Continue Lisinopril 10 mg QD Patient is reminded to continue monitoring his blood pressure regularly (3) Right shoulder pain: Code(s): M25.511 - Pain in right shoulder Category: Medical Qualifiers: Chronicity: unspecified Qualified Code(s): M25.511 - Pain in right shoulder Plan: He was previously sent for x-rays of the right shoulder for further evaluation but he did not get these done - states that his shoulder pain has improved a lot recently so he would like to hold off on x-rays at this time Discussed that it is likely he had some bursitis or tendinitis or degenerative osteoarthritis of the right shoulder and if his symptoms progress, we can consider referring him to physical therapy for further evaluation and recommendations (4) Vitamin D deficiency: Code(s): E55.9 - Vitamin D deficiency, unspecified Category: Medical Plan: He is advised that his Vitamin D was low on his recent labs and he should start taking supplements to help replete this Will start him on Vitamin D3 1000 units QD - advised that he can get this OTC if his insurance does not cover this (5) Gout: Code(s): M10.9 - Gout, unspecified Category: Medical Qualifiers: Gout site: multiple sites Gout etiology: idiopathic Chronicity: chronic Presence of tophus: without tophus Qualified Code(s): M1A.09X0 - Idiopathic chronic gout, multiple sites, without tophus (tophi) Plan: Reinforced low purine diet His serum uric acid level was normal at 4.3 on his recent labs States that he's had no acute gout flare ups in a while now - he takes Prednisone as needed for acute flare ups Continue Allopurinol 300 mg QD and Colchicine 0.6 mg QD PRN Follow up with rheumatology as scheduled - sees rheumatology now just once a year (6) Lumbar degenerative disc disease: Code(s): M51.369 - Other intervertebral disc degeneration, lumbar region without mention of lumbar back pain or lower extremity pain Category: Medical Qualifiers: Disc-related pain type: discogenic back pain and lower extremity pain Qualified Code(s): M51.362 - Other intervertebral disc degeneration, lumbar region with discogenic back pain and lower extremity pain Plan: Reinforced activity and weight-lifting restrictions to avoid aggravating his lower back symptoms Lumbar spine x-rays done about a year ago revealed (+) dextroscoliosis and multilevel degenerative changes of the lumbar spine, with (+) wedge-shaped deformities of L2 and L3 on the left side Patient states that his low back pains mostly come and go and are mostly mild and tolerable so he does not wish to have anything else done for his lower back at this time He prefers to avoid any surgery as much as possible (7) Back pain with right-sided radiculopathy: Code(s): M54.10 - Radiculopathy, site unspecified Category: Medical Plan: Have advised patient that his recurrent right-sided radicular symptoms are more consistently with spinal stenosis of the lumbar spine Patient states that these are mostly manageable and ease up almost immediately once he gets up and moves around and he feels that he can deal with them and live with them for now and he prefers not to pursue any neurosurgical referral at this time (8) Erectile dysfunction: Code(s): N52.9 - Male erectile dysfunction, unspecified Category: Medical Qualifiers: Erectile dysfunction type: unspecified Qualified Code(s): N52.9 - Male erectile dysfunction, unspecified Plan: Continue Sildenafil 100 mg QD PRN (9) Post traumatic stress disorder (PTSD): Code(s): F43.10 - Post-traumatic stress disorder, unspecified Category: Medical Plan: Continue Lorazepam 1 mg QD PRN - Rx refilled He used to take Buspirone but patient stopped it a couple of years ago as he did not feel that it was helping; does not wish to start on any new Rx for now He is again advised to call if he feels that his anxiety is getting worse at any time Follow up with psychiatry as scheduled - therapist is Juan Adhikari III on [facility] in [place] although he states that he has not seen Juan Adhikari III in a few years now Plan Follow up in 4 months Orders: Orders Complete Blood Count Auto Diff 4 Months D64.9 - Anemia, unspecified Comprehensive [place]. Panel Fast 4 Months E78.00 - Pure hypercholesterolemia, unspecified UA CC w/rflx Micro + Cult 4 Months R30.0 - Dysuria Lipid Panel 4 Months E78.00 - Pure hypercholesterolemia, unspecified TSH reflex Free T4 4 Months E78.00 - Pure hypercholesterolemia, unspecified Vitamin D 25-OH Total 4 Months E55.9 - Vitamin D deficiency, unspecified Uric Acid 4 Months M10.9 - Gout, unspecified Medications: New cholecalciferol (vitamin D3) 25 mcg PO DAILY 90 days 90 caps 3RF E55.9 - Vitamin D deficiency, unspecified Refilled lorazepam 1 mg PO DAILY 30 days PRN 30 tabs 1RF anxiety
--- OUTSIDE RECORDS SUMMARY | 2024-11-08 12:21 | XMS_ITS | Data Portability ---
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 Plan of Treatment Reminders Order Date Submit Date Provider Last Modified By Organization Details Last Modified Time Details Appointments None recorded . Lab None recorded . Referral orthoped ic surgeon referral - fracture left radius from a fall. Need further evaluati on and treatmen t. 2022 023 [email or web address] 26 [facility] (Derek Lloyd), [address] [facility] [place], [address], 3 09:17:18 Procedures None recorded . Surgeries None recorded . Imaging XR, wrist, 3 or more view 2022 023 [facility], [address] [place], [address], 3 12:40:49 Medication Orders None recorded . Patient TargetsNo targets recorded. Patient Instructions Encounter Date Encounter Id Patient Instructions Last Modified By Organization Details Last Modified Time 09/09/2022 [id number] Your Care Instructions Your wrist hurts because [...] call your doctor or nurse advice line (960 in most provinces and territories) if you [...] your doctor if you can take an kfxo-cuz-sjropow medicine. Try not to use your injured [...] ed. [email or web address] [facility] [address] [place], [address], 09/09/2022 15:36:05 Result Notes None recorded. Procedures Surgical History Date Name Laterality Status Provider Name and Address Organization Details Recorded Time WRIST SPLINT completed Suman Clifton, MASTICATOR [address] [place], [place], [address], [place] - [facility] 09/09/2022 11:35:40 3 Jose Bandage completed Suman Clifton MASTICATOR [address] [place], [place], [address], [place] - [facility] 09/09/2022 11:35:24 Imaging Results Imaging Date Name Status LastModified by Organiz ation Details LastModified Time 09/09/2022 XR, wrist, 3 or more view completed [email or web address] [address] [place], [address], 09/09/2022 15:36:05 Procedure Notes None recorded. Medical Equipment None Reported. Allergies Allergen ID Allergen Name Allergen Category Reaction Reaction Severity Criticality Documentation Date Start Date Code Code System Note Provider Name and Address Organization Details Recorded Time 21450218 aspirin medicatio n Not available Not available Not available 09/09/2022 1191 RxNorm CARRIANNE MANSOOR null, [place] - [facility] 10:44:10 [id number] Advil medicatio n Not available Not available Not available 09/09/2022 31522 0 RxNorm CARRIANNE MANSOOR null, PA - [...] Updated DateTime 3 177.8 cm 23.5 kg/m2 49034.1 5 g 99 % 99 % 75 /min 20 /min 98.2 [degF] 166 mm[Hg] 104 mm[Hg] 158 mm[Hg] 108 mm[Hg] CHRISTIAN MAX PA - [facility] 3 11:07:27 Social History Question Answer Notes LastModified by [employer] ion Details LastModified Time What Is Your Level Of Alcohol Consumption? Occasional [email or web address] Information not available 09/09/2022 How Many Times Per Week Do You Consume Alcohol? 3-4 Times Per Week [email or web address] Information not available 09/09/2022 Have You Had Direct Contact, Or Contact During Intimacy, With Monkeypox Rash, Scabs, Or Body Fluids From A Person With Monkeypox? No [email or web address] Information not available 09/09/2022 Do You Use Any Illicit Or Recreational Drugs? No [email or web address] Information not available 09/09/2022 Have You Recently Traveled Abroad? No [email or web address] Information not available 09/09/2022 Do You Or Have You Ever Used Any Other Forms Of Tobacco Or Nicotine? No [email or web address] Information not available 09/09/2022 Sex: Unknown Functional [...] SNOMED-CT Code Diagnosis ICD10 Code Diagnosis Note [id number] Suman Clifton, AMILCAR [address] [facility] [address] [place] [address] 09/09/2022 10:07:44 09/09/2022 11:52:32 Sprain of left wrist [id number] 5149562 S63.502A Closed fra cture of distal end of radius 46705975 S52.502A Health Concerns Section Related Observation LastModified by Organization Detai ls LastModified Time None Recorded Concern Status LastModified by Organization Details LastModified Time None Recorded Advance Directives Directive None Recorded Payers Encounter Date Sequence Insurance Name Policy Number Policy Garza Covered Member ID Garza Member ID Guarantor Name 09/09/2022 1 [facility] [id number] David Burks [id number] David Burks Notes Date Note Type Note [...] Clifton NP [address] [place], [address], [place] - [facility] 09/09/2022 11:51:12
== END 2024-11-08 11:12 | disposition home or self-care (01) ==
LOC: HO.HMCH 10:31
PROVIDERS: PCP Internal Medicine; Visit Provider Internal Medicine
DX: E78.00 Pure hypercholesterolemia, unspecified (principal); I10 Essential (primary) hypertension; M25.511 Pain in right shoulder; E55.9 Vitamin D deficiency, unspecified; M1A.09X0 Idiopathic chronic gout, multiple sites, without tophus (tophi); M51.362 Other intervertebral disc degeneration, lumbar region with discogenic back pain and lower extremity pain; M54.10 Radiculopathy, site unspecified; N52.9 Male erectile dysfunction, unspecified; F43.10 Post-traumatic stress disorder, unspecified

== ENCOUNTER → 2024-11-08 10:30 | Outpatient (BNVA) | payer MEDICARE, SELFPAY | PROVIDERS: PCP Internal Medicine; Visit Provider Internal Medicine | DX: E78.00 Pure hypercholesterolemia, unspecified (principal); I10 Essential (primary) hypertension; M25.511 Pain in right shoulder; E55.9 Vitamin D deficiency, unspecified; M1A.09X0 Idiopathic chronic gout, multiple sites, without tophus (tophi); M51.362 Other intervertebral disc degeneration, lumbar region with discogenic back pain and lower extremity pain; M54.10 Radiculopathy, site unspecified; N52.9 Male erectile dysfunction, unspecified; F43.10 Post-traumatic stress disorder, unspecified | CPT/HCPCS: 96127; 99212 ==

== ENCOUNTER 2025-01-11 11:39 | Outpatient (REF) | payer MEDICARE, SELFPAY ==
--- NOTE | ~2025-01-11 | XR_ITS ---
CLINICAL HISTORY: pain in Right hip 2 view, pelvis and right hip Comparison: None provided Findings: No acute fracture or dislocation. Mild right hip osteoarthritis. The soft tissues are unremarkable. IMPRESSION: No acute findings. This document has been electronically signed by: Jc Mathis MD on 01/12/2025 20:21:14
--- OUTSIDE RECORDS SUMMARY | 2025-01-11 12:54 | XMS_ITS | Patient Health Record ---
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 Role Phone Clem (RETIRED) Mikel SANTO Primary Care Provide Javy Cruz Jr Unavailable Allergies Allergen (clinical drug ingredient) Drug/Non Drug Allergy documented on EMR Reaction Allergy Type Onset Date Status Non-steroidal anti-inflammatory agent (FN) NSAIDS (uncoded) Unknown Allergy Active Reason For Referral No Information Medications Medication SIG (Take, Route, Fr equency, Duration) Notes Start Date End Date Status MoviPrep 100 GM as directed before c olonoscopy Orally for 1 dose 07/01/2012 07/14/2024 Active Pravastatin Sodium A ctive Lisinopril Active Colcrys Active Plan Of Treatment Future Test Test Name Order Date COLONOSCOPY 07/01/2012 Insurance Providers Payer Name Payer Address Payer Phone Subscriber Number Group Number Insured Name Patient Relationship to Insured Coverage Start Date Coverage End Date [facility] [address] JAMILAH Flanagan [phone] [id number] EMILIE BEYER Self - patient is the insured Medical (General) History Medical History History ICD Code Depression HTN Hyperlipidemia Renal insuffienciency Alcohol use Gout Surgical History Surgery Date(Month/Year) Appendectomy
--- OUTSIDE RECORDS SUMMARY | 2025-01-11 12:54 | XMS_ITS | Data Portability ---
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 Plan of Treatment Reminders Order Date Submit Date Provider Last Modified By Organization Details Last Modified Time Details Appointments None recorded . Lab None recorded . Referral orthoped ic surgeon referral - fracture left radius from a fall. Need further evaluati on and treatmen t. 2022 023 [email or web address] 26 [facility] (Derek Lloyd), [address] [facility] [place], [address], 3 09:17:18 Procedures None recorded . Surgeries None recorded . Imaging XR, wrist, 3 or more view 2022 023 [facility], [address] [place], [place], [address], 3 12:40:49 Medication Orders None recorded . Patient TargetsNo targets recorded. Patient Instructions Encounter Date Encounter Id Patient Instructions Last Modified By Organization Details Last Modified Time 09/09/2022 [id number] Your Care Instructions Your wrist hurts because [...] call your doctor or nurse advice line (286 in most provinces and territories) if you [...] your doctor if you can take an snga-psh-swbvylm medicine. Try not to use your injured [...] record ed. [email or web address] [facility] [address] [facility] [place], [address], 09/09/2022 15:36:05 Result Notes None recorded. Procedures Surgical History Date Name Laterality Status Provider Name and Address Organization Details Recorded Time 3 WRIST SPLINT completed Suman Clifton NP [address] [place], [address], [place] - [facility] 09/09/2022 11:35:40 3 Jose Bandage completed Suman Clifton NP [address] [place], [address], [place] - [facility] 09/09/2022 11:35:24 Imaging Results None recorded. Procedure Notes None recorded. Medical Equipment None Reported. Allergies Allergen ID Allergen Name Allergen Category Reaction Reaction Severity Criticality Documentation Date Start Date Code Code System Note Provider Name and Address Organization Details Recorded Time 21450218 aspirin medicatio n Not available Not available Not available 09/09/2022 1191 RxNorm CARRIANNE MANSOOR null, PA - [facility] 3 10:44:10 878242 Advil medicatio n Not available Not available Not available 09/09/2022 72460 0 RxNorm CARRIANNE MANSOOR null, PA - [facility] 3 10:44:18 Medications Name Sig Start Date Stop [...] Updated DateTime 3 177.8 cm 23.5 kg/m2 86310.1 5 g 99 % 99 % 75 /min 20 /min 98.2 [degF] 166 mm[Hg] 104 mm[Hg] 158 mm[Hg] 108 mm[Hg] CHRISTIAN MAX PA - [facility] 3 11:07:27 Social History Question Answer Notes LastModified by Organization D etails LastModified Time Have You Had Direct Contact, Or Contact During Intimacy, With Monkeypox Rash, Scabs, Or Body Fluids From A Person With Monkeypox? No [email or web address] Information not available 09/09/2022 Have You Recently Traveled Abroad? No [email or web address] Information not available 09/09/2022 Sex: Unknown Functional Status Question Answer Note LastModified by Organizat ion Details LastModified Time How many times per week do you consume alcohol? 3-4 times per week [email or web address] Information not available 09/09/2022 Do you use any illicit or recreational drugs? No [email or web address] Information not available 09/09/2022 Do you or have you ever used any other forms of tobacco or nicotine? No [email or web address] Information not available 09/09/2022 What is your level of alcohol consumption? Occasional [email or web address] Information not available 09/09/2022 Mental Status None recorded. Family History Nothing [...] N Joint disorder, unspecified N Menopause N Back disorder N Drug dependence, unspecified N Hypothyroidism N Disorder kidney N Sickle Cell Anemia N Cueto's Palsy N Cancer, ovarian N Disorder of eye N Cancer, prostate N Allergy Seasonal N Disorder of lymph system N Disorder of urinary system N Drug abuse N Radiculopathy, site unspecified N Myoneural disorder, unspecified N Nervous system disorder N ADHD N High Cholesterol Y Post-herpetic neuralgia N Aneurysm, cerebral N Tinnitus, left ear N Prostate hypertrophy, benign N Disorder of skin/subcutaneous N Osteoarthritis N Disorder of ear N Ovarian cysts N Parkinson's disease N Low back pain N Carpal tunnel syndrome N Anemia N Disorder of muscle N Kidney stone N Bipolar affective disorder N Leukemia, unspecified N Diabetes N Disorder involving the immune mechanism N Endocrine disorder N Seizure N Hyperlipidemia N Eczema N Emphysema, unspecified N Lymphoma N Dementia N Diverticulitis N Lupus N Seizure disorder N Reflux/GERD N Sleep Apnea N Cancer, bone N Cardiac arrhythmia, unspecified N Disorder of thyroid N Disorder of bone N Heart Disease N Disorder of brain N Liver Disorder N Aneurysm, aortic N Hypertension Y Osteoporosis N Disease of digestive system, unspecified N Gastroesophageal reflux (GERD) N Immunizations Vaccine Type Date Status Note Provider Nam e and Address Organization Details Recorded Time Influenza, split virus, quadrivalent, preservative 9 completed CHRISTIAN MAX null, [place] - [facility] 09/09/2022 10:47:36 Influenza, split virus, quadrivalent, preservative 8 completed CHRISTIAN MAX null, [place] - [facility] 09/09/2022 10:47:36 Influenza, MDCK, quadrivalent, PF 0 completed CHRISTIAN MAX null, PA - [facility] 09/09/2022 10:47:36 Influenza, adjuvanted, quadrivalent, PF 2 completed CHRISTIAN MAX null, [place] - [facility] [...] SNOMED-CT Code Diagnosis ICD10 Code Diagnosis Note [id number] Suman Clifton, BOW REPAIRER CUSTOM [address] [address] 09/09/2022 10:07:44 09/09/2022 11:52:32 Sprain of left wrist [id number] 0428216 S63.502A Closed fra cture of distal end of radius 74423821 S52.502A Health Concerns Section Related Observation LastModified by Organization Detai ls LastModified Time None Recorded Concern Status LastModified by Organization Details LastModified Time None Recorded Advance Directives Directive None Recorded Payers Insurance Date Sequence Insurance Name Policy Number Policy Garza Covered Member ID Garza Member ID Guarantor Name 09/09/2022 1 [facility] [id number] David M Carrier [id number] David Carrier Notes Date Note Type Note Provider Name [...] a blood thinner Suman Clifton NP [address] [place], [address], [place] - [facility] 09/09/2022 11:51:12
== END 2025-01-11 11:40 | disposition home or self-care (01) ==
LOC: HO.XRAY 11:39
PROVIDERS: PCP Internal Medicine; Visit Provider Internal Medicine
DX: M16.11 Unilateral primary osteoarthritis, right hip (principal)
CPT/HCPCS: 73502

== ENCOUNTER → 2025-01-11 11:43 | Outpatient (BNV) | payer MEDICARE, SELFPAY | PROVIDERS: PCP Internal Medicine; Visit Provider Radiology Diagnostic Radiology | DX: M16.11 Unilateral primary osteoarthritis, right hip (principal) | CPT/HCPCS: 73502 ==

== ENCOUNTER 2025-03-18 10:43 | Outpatient (REF) | payer MEDICARE, SELFPAY ==
[2025-03-18 11:59] LABS: MANUAL DIFF FLAG NO
[2025-03-18 12:33] LABS: Hematocrit 46.3 % (42.0-52.0); Hemoglobin 15.8 g/dl (14.0-18.0); Imm Gran Abs Auto 0.05 X10*3/uL (0.00-0.03); Imm Gran Pct Auto 0.7 % (0.0-0.4); Lymphocytes Absolute Auto 2.2 X10*3/uL (1.2-4.9); Mean Corpuscular HGB Conc 34.1 g/dl (31.0-36.0); Mean Corpuscular Hemoglobin 32.0 pg (27.0-33.0); Mean Corpuscular Volume 93.9 fL (80.0-98.0); NRBC Abs Auto 0.000 X10*3/uL (0.0-0.012); NRBC Pct Auto 0.0 /100WBC (0.0-0.2); Platelet Count 255 X10*3/uL (160-400); Red Blood Count 4.93 X10*6/uL (4.60-5.80); White Blood Count 7.7 X10*3/uL (4.8-10.8)
[2025-03-18 13:01] LABS: Appearance Urine Clear; Glucose Urine UA Negative (Negative); PH 5.5 (5.0-9.0); Specific Gravity - Urine 1.015 (1.005-1.025)
[2025-03-18 13:10] LABS: Alanine Aminotransferase 18 U/L (0-40); Albumin Level 4.6 g/dL (3.5-5.0); Alkaline Phosphatase 52 U/L (39-117); Anion Gap 11 (12-20); Aspartate Amino Transferase 32 U/L (5-37); Blood Urea Nitrogen 17 mg/dL (9-16); Calcium 9.7 mg/dL (8.4-10.2); Carbon Dioxide 26 mmol/L (22-29); Chloride 108 mmol/L (96-108); Cholesterol 216 mg/dL (<200); Estimated Glomerular Filt Rate > 60; HDL Cholesterol 79 mg/dL (>40); Potassium 5.0 mmol/L (3.3-5.1); Sodium 140 mmol/L (135-145); Total Protein 7.5 g/dL (6.5-8.0); Triglycerides 134 mg/dL (<150); Uric Acid 5.1 mg/dL (3.4-7.0)
== END 2025-03-18 10:44 | disposition home or self-care (01) ==
LOC: HO.LAB 10:43
PROVIDERS: PCP Internal Medicine; Visit Provider Internal Medicine
DX: R30.0 Dysuria (principal); D64.9 Anemia, unspecified; E78.00 Pure hypercholesterolemia, unspecified; E55.9 Vitamin D deficiency, unspecified; I10 Essential (primary) hypertension; M25.511 Pain in right shoulder; M1A.09X0 Idiopathic chronic gout, multiple sites, without tophus (tophi); Z79.899 Other long term (current) drug therapy
CPT/HCPCS: 36415; 80053; 80061; 81003; 82306; 84443; 84550; 85025; 96127; 99212

== ENCOUNTER 2025-03-18 10:43 | Outpatient (AMB) | payer MEDICARE, SELFPAY ==
[2025-03-18 10:53] VITALS: BP 126/82; PULSE 84; O2SAT 97; BMI 23.7
--- NOTE | 2025-03-18 10:53 | A.OFFPC_ITS ---
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 Accompanied by: Self / Same As Patient Allergies aspirin (ASPIRIN) Allergy (Severe, Verified 03/18/25 11:05) THROAT CLOSES/HIVES NSAIDS (Non-Steroidal Anti-Inflamma (NSAIDS (NON-STEROIDAL ANTI-INFLAMMA) Allergy (Intermediate, Verified 03/18/25 11:05) Hives citalopram Adverse Reaction (Intermediate, Verified 03/18/25 11:05) insomnia, racing thoughts , increased anxiety Medication List - Last Reconciled 03/18/25 by Arvind Torres MD allopurinol 300 mg PO DAILY atorvastatin 10 mg PO BEDTIME 30 days calamine phenolated 1 appl topical TID PRN cholecalciferol (vitamin D3) 25 mcg PO DAILY 90 days colchicine 0.6 mg PO DAILY PRN lisinopril 10 mg PO DAILY lorazepam 1 mg PO DAILY PRN 30 days sildenafil 100 mg PO DAILY 30 days Tobacco use date assessed: 03/18/25 Fall risk assessment: No Falls in past year Last assessed Fall Risk: 03/18/25 Dental Screening Dental Screen Date: 03/18/25 Did you have a dental visit in the last 12 months?: Yes Did you have a dental problem in the last 6 months where you did not have access to dental care?: No Was dental information given to patient?: Patient has dentist HPI HTN, dyslipidemia, gout, anxiety HPI Details Patient comes in today for his follow up visit States that he still has on and off pain over his right lower back that flares up when he has been sitting down for a while States that the pain would often radiate down his right buttock and behind his right thigh and would ease up once he gets up and moves around for a while He again denies any weakness of the right leg and has no acute bowel or bladder issues He would like to know if his hip x-rays done last month showed anything pertinent States that he feels okay otherwise He denies any headaches or dizziness Denies any chest pains, no SOB No nausea/vomiting, no abdominal pain No change in bowel habits noted States that his anxiety remains well-controlled on his current Rx He forgot to get his follow up labs done prior to his appointment today but states that he can go and get them done as soon as he leaves the office today [facility] Medical History Lumbar degenerative disc disease Vitamin D deficiency Gout Closed fracture of left distal radius Erectile dysfunction Post traumatic stress disorder (PTSD) Pure hypercholesterolemia Benign essential hypertension Hyperlipidemia Hypertension Gouty arthritis Surgical History Hx of colonoscopy History of appendectomy Family History Father No problems noted. Mother CVD (cardiovascular disease) Brother Alcohol abuse Epileptic seizure Aneurysm Other Substance use disorder Social History Housing: House Alcohol intake: current Alcohol intake frequency: a few times a week Patient Tobacco Use Status: Former Tobacco user e-Cigarette/Vaping Use: Never Used Second Hand Smoke Exposure: Yes service: No Current occupational status: retired Cognitive needs: No Hearing needs: No Vision needs: Yes Questionnaire PHQ-9 Over the last 2 weeks, how often have you been bothered by any of the following problems? 1. Little interest or pleasure in doing things: not at all 2. Feeling down, depressed, or hopeless: not at all 3. Trouble falling or staying asleep, or sleeping too much: not at all 4. Feeling tired or having little energy: not at all 5. Poor appetite or overeating: not at all 6. Feeling bad about yourself - or that you are a failure or have let yourself or your family down: not at all 7. Trouble concentrating on things, such as reading the newspaper or watching television: not at all 8. Moving or speaking so slowly that other people could have noticed. Or the opposite - being so fidgety or restless that you have been moving around a lot more than usual: not at all 9. Thoughts that you would be better off or of hurting yourself in some way: not at all Total score: 0 Depression Screening Interpretation: Negative Depression Screening Done: Yes 60322 - PHQ-9 Billing: Yes Source: Developed by Drs. David Garrido, Lindsey Mccarthy, Gaston Jacob and colleagues, with an educational osmar from [employer]. Thrive Questionnaire Date Thrive assessed: 03/18/25 I am a: Patient What is your living situation today?: I have a steady place to live Within the past 12 months, did the food you bought not last and you didn't have the money to get more?: Never true Within the past 12 months, did you worry whether your food would run out before you got money to buy more?: Never true Do you have trouble paying for medicines?: I choose not to answer this question Do you have trouble getting transportation to medical appointments?: No Do you have trouble paying your heating and electricity bill?: I choose not to answer this question Do you have trouble taking care of your child, family member or friend?: No Do you have trouble with day-to-day activities such as bathing, preparing meals, shopping, managing finances, etc.?: No Are you currently unemployed and looking for a job?: No Are you interested in more education?: I choose not to answer this question Please select the resources that you would like help with: None Currently or been in a relationship where the following occur: No concerns reported THRIVE Score: 0 AUDIT C Alcohol Use Questionnaire (AUDIT-C) 1. How often do you have a drink containing alcohol?: 2-4 times a month 2. How many drinks containing alcohol do you have on a typical day when you are drinking?: 1 or 2 3. How often do you have six or more drinks on one occasion?: Never Total Score: 2 Score Reviewed/Action Taken: Yes MT-7 AMB Questionnaire MT-7 Date MT - 7 assessed: 03/18/25 Feeling nervous, anxious, or on edge: 1 = Several days Not being able to stop or control worryin = Several days Worrying too much about different things: 1 = Several days Trouble relaxin = Several days Being so restless that it is hard to sit still: 0 = Not at all Becoming easily annoyed or irritable: 1 = Several days Feeling afraid as if something awful might happen: 1 = Several days Total MT-7 score (0-4 normal; 5-9 mild; 10-14 moderate; 15-21 severe): 6 Source: Developed by Drs. David Garrido, Lindsey Mccarthy, Gaston Jacob and colleagues, with an educational osmar from [employer]. Review of Systems Const Denies chills, Reports difficulty sleeping (often wakes up after a few hours and unable to go back to sleep), Denies fatigue, Denies fever(s) and Denies headache(s) ENT Denies dysphagia, Denies dizziness, Denies otalgia, Denies headache(s), Denies neck pain, Denies odynophagia and Denies sore throat Card Denies chest pain, Denies irregular heart rhythm, Denies palpitations and Denies dyspnea Resp Denies chest congestion, Denies cough and Denies dyspnea GI Denies abdominal pain, Denies constipation, Denies dysphagia, Denies heartburn, Denies diarrhea, Denies nausea, Denies odynophagia and Denies vomiting Denies difficulty urinating, Denies dysuria and Denies urinary frequency Musc Reports back pain (on and off, especially over the right lower back), Reports arthralgias (in the right shoulder), Denies neck pain and Reports radiating pain into limb (down the right buttocks and back of right thigh at times) Skin/Breast Denies rash Neuro Denies dizziness, Denies headache(s) and Denies paresthesias Psych Reports anxiety Endo Denies fatigue and Denies palpitations Physical exam (Primary Care) Vital Signs: Last Vital Signs Pulse 84 03/18/25 10:53 BP 126/82 03/18/25 10:53 Pulse Ox 97 03/18/25 10:53 Oxygen Delivery Method Room Air 03/18/25 10:53 BMI result Body Mass Index 23.7 Tobacco/Smoking Status: Tobacco use Status Tobacco use date assessed 03/18/25 03/18/25 10:58 Patient Tobacco Use Status Former Tobacco user 03/18/25 10:58 e-Cigarette/Vaping Use Never Used 03/18/25 10:58 PHQ-9: PHQ-9 Score PHQ-9: Total score 0 03/18/25 11:02 Depression Screening Interpretation: Negative Thrive Assessment: Date of Thrive Assessment Date Thrive assessed 03/18/25 03/18/25 10:58 Currently or been in a relationship where the following occur: No concerns reported Const General: no acute distress and alert HENMT Ears: TM's normal bilaterally and EAC's normal Throat: Yes posterior oropharynx normal and Yes tonsils normal (no TP congestion) Neck Neck: Yes no lymphadenopathy and Yes supple Thyroid: Thyroid normal Resp Auscultation: clear to auscultation bilaterally, no rales and no wheezes Cardio Rate: regular rate Rhythm: regular rhythm Heart sounds: no murmurs GI Palpation (GI): Soft to palpation and nontender Auscultation: normal bowel sounds General: Yes no CVA tenderness Back/Spine/Pelvis Back: no CVA tenderness Thoracic/Lumbar Spine: straight leg raise negative bilaterally, paraspinal muscle tenderness on the right in the mid lumbar and in the lower lumbar and lumbar spinal tenderness (mild) Skin Rashes: no rashes Extrem General: Yes no clubbing, cyanosis or edema Right upper extremity: shoulder/upper arm Details: tenderness Location: of the A-C joint; no swelling Coding Level of Care Code Est Pt Level 4 (70499) Diagnoses Pure hypercholesterolemia E78.00 Benign essential hypertension I10 Right shoulder pain, unspecified chronicity M25.511 Chronicity: unspecified Vitamin D deficiency E55.9 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.09X0 Gout site: multiple sites Gout etiology: idiopathic Chronicity: chronic Presence of tophus: without tophus Degeneration of intervertebral disc of lumbar region with discogenic back pain and lower extremity pain M51.362 Disc-related pain type: discogenic back pain and lower extremity pain Back pain with right-sided radiculopathy M54.10 Erectile dysfunction, unspecified erectile dysfunction type N52.9 Erectile dysfunction type: unspecified Post traumatic stress disorder (PTSD) F43.10 Additional Codes PHQ-9 - 73179 - PHQ-9 Billing: Yes ([id number]) Assessment & Plan Assessment & Plan (1) Pure hypercholesterolemia: Code(s): E78.00 - Pure hypercholesterolemia, unspecified Category: Medical Plan: Patient is advised to go and get his follow up labs done DARNELL as his cholesterol levels have trending upwards gradually but consistently over the past year Reinforced low cholesterol diet - patient admits to poor compliance with his diet lately and states that he has been eating about 2 eggs and a good amount of camacho everyday for the past few months Continue Atorvastatin 10 mg QD for now but advised that we may need to increase this if his cholesterol numbers still do not show any significant improvement over the next few months Will recheck his labs and fasting lipids again in 4 months for follow up (2) Benign essential hypertension: Code(s): I10 - Essential (primary) hypertension Category: Medical Plan: Reinforced low sodium diet - goal is systolic BP of 120 to 130 mm or less Continue Lisinopril 10 mg QD Patient is reminded to continue monitoring his blood pressure regularly (3) Right shoulder pain: Code(s): M25.511 - Pain in right shoulder Category: Medical Qualifiers: Chronicity: unspecified Qualified Code(s): M25.511 - Pain in right shoulder Plan: He was previously sent for x-rays of the right shoulder for further evaluation but he did not get these done - states that his shoulder pain has improved a lot recently so he would like to hold off on x-rays at this time Have discussed with patient that he likely had some bursitis or tendinitis or degenerative osteoarthritis of the right shoulder and if his symptoms progress, we can consider referring him to physical therapy for further evaluation and recommendations (4) Vitamin D deficiency: Code(s): E55.9 - Vitamin D deficiency, unspecified Category: Medical Plan: Continue Vitamin D3 1000 units QD (5) Gout: Code(s): M10.9 - Gout, unspecified Category: Medical Qualifiers: Gout site: multiple sites Gout etiology: idiopathic Chronicity: chronic Presence of tophus: without tophus Qualified Code(s): M1A.09X0 - Idiopathic chronic gout, multiple sites, without tophus (tophi) Plan: Reinforced low purine diet His serum uric acid level was normal at 4.3 when last checked a few months ago States that he's had no acute gout flare ups in a while now - he takes Prednisone as needed for acute flare ups Continue Allopurinol 300 mg QD and Colchicine 0.6 mg QD PRN Follow up with rheumatology as scheduled - sees rheumatology now just once a year (6) Lumbar degenerative disc disease: Code(s): M51.369 - Other intervertebral disc degeneration, lumbar region without mention of lumbar back pain or lower extremity pain Category: Medical Qualifiers: Disc-related pain type: discogenic back pain and lower extremity pain Qualified Code(s): M51.362 - Other intervertebral disc degeneration, lumbar region with discogenic back pain and lower extremity pain Plan: Reinforced activity and weight-lifting restrictions to avoid aggravating his lower back symptoms Lumbar spine x-rays done in October 2023 revealed (+) dextroscoliosis and multilevel degenerative changes of the lumbar spine, with (+) wedge-shaped deformities of L2 and L3 on the left side Patient states that his low back pains mostly come and go and are mostly mild and tolerable so he does not wish to have anything else done for his lower back at this time and he prefers to avoid any surgery as much as possible Will refer him to PT for further evaluation and recommendations (7) Back pain with right-sided radiculopathy: Code(s): M54.10 - Radiculopathy, site unspecified Category: Medical Plan: Have advised patient that his recurrent right-sided radicular symptoms are more consistently with spinal stenosis of the lumbar spine Patient states that these are mostly manageable and ease up almost immediately once he gets up and moves around although he feels like they are recurring more often lately and is wondering if seeing a chiropractor would be helpful He still prefers not to pursue any neurosurgical referral if he can avoid this Have advised patient that his recent right hip x-rays revealed only (+) mild OA changes in the hip and likely has no impact on his recent symptoms As we are referring him to PT for his right lower back, will include his right hip OA in the referral as well Have advised patient that based on his lumbar spine x-rays findings, I would NOT recommend he see a chiropractor as back manipulations can potentially make his current back issues much worse (8) Erectile dysfunction: Code(s): N52.9 - Male erectile dysfunction, unspecified Category: Medical Qualifiers: Erectile dysfunction type: unspecified Qualified Code(s): N52.9 - Male erectile dysfunction, unspecified Plan: Continue Sildenafil 100 mg QD PRN (9) Post traumatic stress disorder (PTSD): Code(s): F43.10 - Post-traumatic stress disorder, unspecified Category: Medical Plan: Continue Lorazepam 1 mg QD PRN He used to take Buspirone but patient stopped it a couple of years ago as he did not feel that it was helping; he does not wish to start on any new Rx for now He is again advised to call if he feels that his anxiety is getting worse at any time Follow up with psychiatry as scheduled - therapist is Juan Adhikari III on [facility] in [place] although he states that he has not seen Juan Adhikari III in a few years now Plan Follow up in 4 months Orders: Orders PT Evaluation and Treatment Today M16.11 - Unilateral primary osteoarthritis, right hip, M54.10 - Radiculopathy, site unspecified, M54.50 - Low back pain, unspecified Comprehensive [place] [facility]. Panel Fast 4 Months E78.00 - Pure hypercholesterolemia, unspecified TSH reflex Free T4 4 Months E78.00 - Pure hypercholesterolemia, unspecified Lipid Panel 4 Months E78.00 - Pure hypercholesterolemia, unspecified Vitamin D 25-OH Total 4 Months E55.9 - Vitamin D deficiency, unspecified Uric Acid 4 Months M10.9 - Gout, unspecified UA CC w/rflx Micro + Cult 4 Months R30.0 - Dysuria
--- OUTSIDE RECORDS SUMMARY | 2025-03-18 11:44 | XMS_ITS | Patient Health Record ---
Author Organization [facility] Address [address] [place] [address] Care Team Providers Care Community Engagement Specialist Name Role Phone Clem (RETIRED) Mikel SANTO Primary Care Provide Javy Cruz Jr Unavailable [phone] Allergies Allergen (clinical drug ingredient) Drug/Non Drug [...] Insured Coverage Start Date Coverage End Date [facility] [address] JAMILAH Flanagan [phone] [id number] EMILIE BEYER Self - patient is the insured Medical (General) History Medical History History ICD Code Depression HTN Hyperlipidemia Renal insuffienciency Alcohol use Gout Surgical History Surgery Date(Month/Year) Appendectomy
== END 2025-03-18 11:13 | disposition home or self-care (01) ==
LOC: HO.HMCH 10:44
PROVIDERS: PCP Internal Medicine; Visit Provider Internal Medicine
DX: E78.00 Pure hypercholesterolemia, unspecified (principal); I10 Essential (primary) hypertension; M25.511 Pain in right shoulder; E55.9 Vitamin D deficiency, unspecified; M1A.09X0 Idiopathic chronic gout, multiple sites, without tophus (tophi); M51.362 Other intervertebral disc degeneration, lumbar region with discogenic back pain and lower extremity pain; M54.10 Radiculopathy, site unspecified; N52.9 Male erectile dysfunction, unspecified; F43.10 Post-traumatic stress disorder, unspecified

== ENCOUNTER 2025-04-26 11:00 | Outpatient (RCR) | payer MEDICARE, SELFPAY ==
--- NOTE | 2025-04-06 11:10 | MHC.PT.EP ---
[facility] [place] [facility] [place] [facility] [place] [facility] [address] Richy Nieto [address] [phone] F: [phone] F: [phone] F: [phone] F: [phone] Physical Therapy Plan of Care Date of Evaluation: 04/06/25 Date of Surgery: NA Diagnosis: BACK AND HIP PAIN Assessment: Pt IS 69 YO M REFERRED TO PT FROM DR ADAMS WITH LBP/R HIP PAIN/SCIATICA. Pt REPORTS SXS STARTED IN SEPTEMBER (?FROM PROLONGED SIT PLAYING VIDEO DRIVING GAME). REPORTS SXS GOT SO BAD THAT HIS ADLS WERE LIIMITED AND HE BEGAN LAYING DOWN ALOT (WHICH ULTIMATELY HELPED DECREASE HIS LEG SXS). PRESENTS WITH TIGHT LUMBAR PARASPINALS AND LES, GOOD LE STRENGTH. SHOULD BENEFIT FROM PT TO ADDRESS THESE ISSUES. Frequency and Duration: The patient will be seen 2X/WK X 6 WKS Short Term Goals: 1. CENTRALIZE SXS OUT OF LEG 2. INCREASED AWARENESS BACK CARE AND POSTURE 3. Pt TO PERF 2-3 TASKS WITH PROPER BODY MECH Inbound Telemarketer Goals: 1.DECREASED PAIN AT LEAST 50% WITH ADLS 2. IMPROVED HS FLEXIBILITY ON R 5-10 DEGREES 3. I HEP WITH DC EX PLAN (POSSIBLE RETURN TO [facility]) 4. IMPROVED MOD OSWESTRY (14/50SOC) Treatment Plan: Modalities to reduce pain, spasms and effusion. Manual therapy to restore motion and function. Therapeutic exercise to improve strength and flexibility. Neuromuscular re-education for posture and balance. Therapeutic activities to return to functional activities of daily living. Electronically signed by: CHERYL ADAMSON PT Please sign and return to therapist. Thank you for your referral.
--- NOTE | 2025-04-26 12:06 | MHC.PT.DC ---
[facility] [place] [facility] [place] Office [place] Office [address] Richy Nieto [address] [phone] F: [phone] F: [phone] F: [phone] F: [phone] Physical Therapy Discharge Report Diagnosis: BACK AND HIP PAIN Date of Surgery: NA Date of Evaluation: 04/06/25 Date of Discharge: 04/26/25 Treatments to Date: 6 Cancellations to Date: No Shows to Date: Discharge Status: Achieved Goals Improved Function Independent with HEP Patient Elected to Stop Discharge Summary: HAS MET PT GOALS. IS STILL THINKING ABOUT STARTING BACK TO [place] Electronically signed by: CHERYL ADAMSON PT Please sign and return to therapist. Thank you for your referral.
== END 2025-04-26 12:06 | disposition home or self-care (01) ==
LOC: HO.PT 11:00
PROVIDERS: PCP Internal Medicine; Visit Provider Internal Medicine
DX: M54.50 Low back pain, unspecified (principal); M54.10 Radiculopathy, site unspecified; M16.11 Unilateral primary osteoarthritis, right hip
CPT/HCPCS: 97110; 97161; 97535

== ENCOUNTER 2025-07-12 09:06 | Outpatient (REF) | payer MEDICARE, SELFPAY ==
[2025-07-12 10:50] LABS: Appearance Urine Clear; Glucose Urine UA Negative (Negative); PH 6.0 (5.0-9.0); Specific Gravity - Urine 1.015 (1.005-1.025)
--- OUTSIDE RECORDS SUMMARY | 2025-07-12 11:22 | XMS_ITS | Patient Health Record ---
Author Organization [facility] Address [address] [place] [address] Care Team Providers Care Boom Worker Name Role Phone Clem (RETIRED) Mikel SANTO Primary Care Provide Javy Cruz Jr Unavailable [phone] Allergies Allergen (clinical drug ingredient) Drug/Non Drug Allergy documented on EMR Reaction Allergy Type Onset Date Status Non-steroidal anti-inflammatory agent (FN) NSAIDS (uncoded) Unknown Allergy Active Reason For Referral No Information Medications Medication SIG (Take, Route, Frequency, Duration) Notes Start Date End Date Status MoviPrep 100 GM Solution Reconstituted as directed before colonoscopy Orally; Duration: 1 dose 07/01/2012 Active Pravastatin Sodium A ctive Lisinopril Active Colcrys Active Social History Social History Additional Details Category Social Info Options Details Miscellaneous: Marital status: Single 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
[2025-07-12 12:14] LABS: Alanine Aminotransferase 24 U/L (0-40); Albumin Level 4.4 g/dL (3.5-5.0); Alkaline Phosphatase 56 U/L (39-117); Anion Gap 12 (12-20); Aspartate Amino Transferase 37 U/L (5-37); Blood Urea Nitrogen 17 mg/dL (9-16); Calcium 9.2 mg/dL (8.4-10.2); Carbon Dioxide 26 mmol/L (22-29); Chloride 105 mmol/L (96-108); Cholesterol 213 mg/dL (<200); Estimated Glomerular Filt Rate > 60; HDL Cholesterol 65 mg/dL (>40); Potassium 4.7 mmol/L (3.3-5.1); Sodium 138 mmol/L (135-145); Total Protein 7.2 g/dL (6.5-8.0); Triglycerides 153 mg/dL (<150)
[2025-07-12 12:29] LABS: Uric Acid 4.4 mg/dL (3.4-7.0)
== END 2025-07-12 09:07 | disposition home or self-care (01) ==
LOC: HO.LAB 09:06
PROVIDERS: PCP Internal Medicine; Visit Provider Internal Medicine
DX: Z00.00 Encounter for general adult medical examination without abnormal findings (principal); E78.00 Pure hypercholesterolemia, unspecified; M25.511 Pain in right shoulder; E55.9 Vitamin D deficiency, unspecified; M1A.09X0 Idiopathic chronic gout, multiple sites, without tophus (tophi); M51.362 Other intervertebral disc degeneration, lumbar region with discogenic back pain and lower extremity pain; M54.10 Radiculopathy, site unspecified; N52.9 Male erectile dysfunction, unspecified; F43.10 Post-traumatic stress disorder, unspecified; D64.9 Anemia, unspecified; R30.0 Dysuria
CPT/HCPCS: 36415; 80053; 80061; 81003; 82306; 84443; 84550; 96127; 99397

== ENCOUNTER 2025-07-12 10:20 | Outpatient (AMB) | payer MEDICARE, SELFPAY ==
[2025-07-12 10:21] VITALS: BP 110/82; PULSE 61; O2SAT 96; BMI 24.4
--- NOTE | 2025-07-12 10:21 | MHC.PC.OV ---
Vital Signs 07/12/25 10:21 Height 5 ft 10 in Weight 170 lb 2 oz BMI 24.4 BP 110/82 Blood Pressure Location Lt brachial Position Sitting Pulse 61 Pulse Source Pulse Oximeter Pulse Oximetry (%) 96 Oxygen Delivery Method Room Air Intake Visit Reasons: Annual Exam - see comments Physical Therapist Technician Required: No Accompanied by: Self / Same As Patient Allergies aspirin (ASPIRIN) Allergy (Severe, Verified 07/12/25 10:52) THROAT CLOSES/HIVES NSAIDS (Non-Steroidal Anti-Inflamma (NSAIDS (NON-STEROIDAL ANTI-INFLAMMA) Allergy (Intermediate, Verified 07/12/25 10:52) Hives citalopram Adverse Reaction (Intermediate, Verified 07/12/25 10:52) insomnia, racing thoughts , increased anxiety Medication List - Last Reconciled 07/12/25 by Arvind Torres MD allopurinol 300 mg PO DAILY atorvastatin 10 mg PO BEDTIME 30 days calamine phenolated 1 appl topical TID PRN cholecalciferol (vitamin D3) 25 mcg PO DAILY 90 days colchicine 0.6 mg PO DAILY PRN lisinopril 10 mg PO DAILY lorazepam 1 mg PO DAILY PRN 30 days sildenafil 100 mg PO DAILY 30 days Tobacco use date assessed: 07/12/25 Fall risk assessment: No Falls in past year Last assessed Fall Risk: 07/12/25 Dental Screening Dental Screen Date: 07/12/25 Did you have a dental visit in the last 12 months?: Yes Did you have a dental problem in the last 6 months where you did not have access to dental care?: No Was dental information given to patient?: Patient has dentist HPI Annual Exam - see comments HPI Details Patient comes in today for his annual physical examination States that he feels okay He denies any headaches or dizziness Denies any chest pains, no SOB No nausea/vomiting, no abdominal pain No change in bowel habits noted Denies any acute urinary symptoms He had his follow up labs done yesterday - to discuss his results He had his screening colonoscopy last done in June 2022 - procedure was normal and he was advised to get a repeat colonoscopy in 10 years (2031) [facility] Medical History Lumbar degenerative disc disease Vitamin D deficiency Gout Closed fracture of left distal radius Erectile dysfunction Post traumatic stress disorder (PTSD) Pure hypercholesterolemia Benign essential hypertension Hyperlipidemia Hypertension Gouty arthritis Surgical History Hx of colonoscopy History of appendectomy Family History Father No problems noted. Mother CVD (cardiovascular disease) Brother Alcohol abuse Epileptic seizure Aneurysm Other Substance use disorder Social History Housing: House Alcohol intake: current Alcohol intake frequency: a few times a week Patient Tobacco Use Status: Former Tobacco user e-Cigarette/Vaping Use: Never Used Second Hand Smoke Exposure: Yes service: No Current occupational status: retired Cognitive needs: No Hearing needs: No Vision needs: Yes Questionnaire PHQ-9 Over the last 2 weeks, how often have you been bothered by any of the following problems? 1. Little interest or pleasure in doing things: not at all 2. Feeling down, depressed, or hopeless: not at all 3. Trouble falling or staying asleep, or sleeping too much: not at all 4. Feeling tired or having little energy: not at all 5. Poor appetite or overeating: not at all 6. Feeling bad about yourself - or that you are a failure or have let yourself or your family down: not at all 7. Trouble concentrating on things, such as reading the newspaper or watching television: not at all 8. Moving or speaking so slowly that other people could have noticed. Or the opposite - being so fidgety or restless that you have been moving around a lot more than usual: not at all 9. Thoughts that you would be better off or of hurting yourself in some way: not at all Total score: 0 Depression Screening Interpretation: Negative Depression Screening Done: Yes 82313 - PHQ-9 Billing: Yes Source: Developed by Drs. David Garrido, Lindsey Mccarthy, Gaston Jacob and colleagues, with an educational osmar from [employer]. Thrive Questionnaire Date Thrive assessed: 07/12/25 I am a: Patient What is your living situation today?: I have a steady place to live Within the past 12 months, did the food you bought not last and you didn't have the money to get more?: Never true Within the past 12 months, did you worry whether your food would run out before you got money to buy more?: Never true Do you have trouble paying for medicines?: I choose not to answer this question Do you have trouble getting transportation to medical appointments?: No Do you have trouble paying your heating and electricity bill?: I choose not to answer this question Do you have trouble taking care of your child, family member or friend?: No Do you have trouble with day-to-day activities such as bathing, preparing meals, shopping, managing finances, etc.?: No Are you currently unemployed and looking for a job?: No Are you interested in more education?: I choose not to answer this question Please select the resources that you would like help with: None Currently or been in a relationship where the following occur: No concerns reported THRIVE Score: 0 AUDIT C Alcohol Use Questionnaire (AUDIT-C) 1. How often do you have a drink containing alcohol?: 2-4 times a month 2. How many drinks containing alcohol do you have on a typical day when you are drinking?: 1 or 2 3. How often do you have six or more drinks on one occasion?: Never Total Score: 2 Score Reviewed/Action Taken: Yes MT-7 AMB Questionnaire MT-7 Date MT - 7 assessed: 07/12/25 Feeling nervous, anxious, or on edge: 1 = Several days Not being able to stop or control worryin = Several days Worrying too much about different things: 1 = Several days Trouble relaxin = Several days Being so restless that it is hard to sit still: 0 = Not at all Becoming easily annoyed or irritable: 1 = Several days Feeling afraid as if something awful might happen: 1 = Several days Total MT-7 score (0-4 normal; 5-9 mild; 10-14 moderate; 15-21 severe): 6 Source: Developed by Drs. David Garrido, Lindsey Mccarthy, Gaston Jacob and colleagues, with an educational osmar from [employer]. Review of Systems Const Denies chills, Reports difficulty sleeping (often wakes up after a few hours and has a hard time going back to sleep), Denies fatigue, Denies fever(s), Denies headache(s) and Denies weakness Eyes Denies blurry vision, Denies change in vision, Denies irritation and Denies itchy eyes ENT Denies dysphagia, Denies dizziness, Denies otalgia, Denies headache(s), Denies nasal congestion, Denies neck pain, Denies odynophagia and Denies sore throat Card Denies chest pain, Denies rapid heart rate, Denies irregular heart rhythm, Denies palpitations and Denies dyspnea Resp Denies chest congestion, Denies cough, Denies dyspnea and Denies wheezing GI Denies abdominal pain, Denies bloating, Denies constipation, Denies dysphagia, Denies heartburn, Denies diarrhea, Denies nausea, Denies odynophagia and Denies vomiting Denies hematuria, Denies difficulty urinating, Denies dysuria, Denies urinary frequency and Denies urinary urgency Musc Reports back pain (on and off), Reports arthralgias (in the right shoulder, on and off), Denies joint swelling, Denies muscle weakness and Denies neck pain Skin/Breast Denies change in pigmentation, Denies lesions, Denies rash and Denies unusual bruising Neuro Denies dizziness, Denies headache(s), Denies paresthesias and Denies weakness Psych Reports anxiety Endo Denies fatigue and Denies palpitations Aller/Immun Denies itchy eyes and Denies wheezing Physical exam (Primary Care) Vital Signs: Last Vital Signs Pulse 61 07/12/25 10:21 BP 110/82 07/12/25 10:21 Pulse Ox 96 07/12/25 10:21 Oxygen Delivery Method Room Air 07/12/25 10:21 BMI result Body Mass Index 24.4 Tobacco/Smoking Status: Tobacco use Status Tobacco use date assessed 07/12/25 07/12/25 10:24 Patient Tobacco Use Status Former Tobacco user 07/12/25 10:24 e-Cigarette/Vaping Use Never Used 07/12/25 10:24 PHQ-9: PHQ-9 Score PHQ-9: Total score 0 07/12/25 10:56 Depression Screening Interpretation: Negative Thrive Assessment: Date of Thrive Assessment Date Thrive assessed 07/12/25 07/12/25 10:24 Currently or been in a relationship where the following occur: No concerns reported Const General: no acute distress, alert and awake Orientation/consciousness: patient oriented x3 HENMT Head: Yes normocephalic and Yes atraumatic Ears: external ears normal, TM's normal bilaterally and EAC's normal General nose exam: No nasal discharge present Face and sinus: Yes normal facial exam and Yes sinuses nontender Teeth and gingiva: dentition normal Throat: Yes posterior oropharynx normal and Yes tonsils normal (no TP congestion) Eyes Eyelids: Yes eyelids normal Conjunctivae: conjunctivae normal Pupils: Equal, round and reactive pupils present EOM: EOMs intact bilaterally Neck Neck: Yes no lymphadenopathy and Yes supple Thyroid: Thyroid normal Resp Auscultation: clear to auscultation bilaterally, no rales and no wheezes Cardio Rate: regular rate Rhythm: regular rhythm Heart sounds: no murmurs GI Palpation (GI): Soft to palpation, nontender and No hepatosplenomegaly present Auscultation: normal bowel sounds General: Yes no CVA tenderness Back/Spine/Pelvis Back: no CVA tenderness Thoracic/Lumbar Spine: thoracic and lumbar spine normal to inspection Skin Lesions: no lesions Rashes: no rashes Neuro General: patient oriented x3, moves all extremities, no focal motor deficits and CN's II-XI intact bilaterally Cranial nerves: Yes Equal, round and reactive pupils present Cognition (Neuro): normal cognition Gait exam (Neuro): Normal gait present Extrem General: Yes no clubbing, cyanosis or edema Right upper extremity: shoulder/upper arm Details: tenderness Location: of the A-C joint; no swelling Coding Level of Care Code Est Pt Prev Care >65y(04456) Diagnoses Annual physical exam Z00.00 Pure hypercholesterolemia E78.00 Benign essential hypertension I10 Right shoulder pain, unspecified chronicity M25.511 Chronicity: unspecified Vitamin D deficiency E55.9 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.09X0 Chronicity: chronic Gout etiology: idiopathic Gout site: multiple sites Presence of tophus: without tophus Degeneration of intervertebral disc of lumbar region with discogenic back pain and lower extremity pain M51.362 Disc-related pain type: discogenic back pain and lower extremity pain Back pain with right-sided radiculopathy M54.10 Erectile dysfunction, unspecified erectile dysfunction type N52.9 Erectile dysfunction type: unspecified Post traumatic stress disorder (PTSD) F43.10 Additional Codes PHQ-9 - 19995 - PHQ-9 Billing: Yes ([id number]) Assessment & Plan Assessment & Plan (1) Annual physical exam: Code(s): Z00.00 - Encounter for general adult medical examination without abnormal findings Category: Medical Plan: Advised patient that the results of his labs done earlier this morning are currently not available for review yet He is up-to-date on his colon cancer screening - will be due for his next repeat colonoscopy in 2031 (2) Pure hypercholesterolemia: Code(s): E78.00 - Pure hypercholesterolemia, unspecified Category: Medical Plan: Reinforced low cholesterol diet His follow up labs done earlier this morning are not yet available for review at this time Continue Atorvastatin 10 mg QD for now but advised that we may need to increase this if his cholesterol numbers still do not show any significant improvement over the next few months Will recheck his labs and fasting lipids again in 4 months for follow up (3) Benign essential hypertension: Code(s): I10 - Essential (primary) hypertension Category: Medical Plan: Reinforced low sodium diet - goal is systolic BP of 120 to 130 mm or less Continue Lisinopril 10 mg QD Patient is reminded to continue monitoring his blood pressure regularly (4) Right shoulder pain: Code(s): M25.511 - Pain in right shoulder Category: Medical Qualifiers: Chronicity: unspecified Qualified Code(s): M25.511 - Pain in right shoulder Plan: He was previously sent for x-rays of the right shoulder for further evaluation but he did not get these done - states that his shoulder pain has improved a lot recently so he would like to hold off on x-rays at this time Have discussed with patient that he likely had some bursitis or tendinitis or degenerative osteoarthritis of the right shoulder and if his symptoms progress, we can consider referring him to physical therapy for further evaluation and recommendations (5) Vitamin D deficiency: Code(s): E55.9 - Vitamin D deficiency, unspecified Category: Medical Plan: Continue Vitamin D3 1000 units QD (6) Gout: Code(s): M10.9 - Gout, unspecified Category: Medical Qualifiers: Chronicity: chronic Gout etiology: idiopathic Gout site: multiple sites Presence of tophus: without tophus Qualified Code(s): M1A.09X0 - Idiopathic chronic gout, multiple sites, without tophus (tophi) Plan: Reinforced low purine diet His serum uric acid level was normal at 4.3 when last checked a few months ago States that he's had no acute gout flare ups in a while now - he takes Prednisone as needed for acute flare ups Continue Allopurinol 300 mg QD and Colchicine 0.6 mg QD PRN Follow up with rheumatology as scheduled - sees rheumatology now just once a year (7) Lumbar degenerative disc disease: Code(s): M51.369 - Other intervertebral disc degeneration, lumbar region without mention of lumbar back pain or lower extremity pain Category: Medical Qualifiers: Disc-related pain type: discogenic back pain and lower extremity pain Qualified Code(s): M51.362 - Other intervertebral disc degeneration, lumbar region with discogenic back pain and lower extremity pain Plan: Reinforced activity and weight-lifting restrictions to avoid aggravating his lower back symptoms Lumbar spine x-rays done in October 2023 revealed (+) dextroscoliosis and multilevel degenerative changes of the lumbar spine, with (+) wedge-shaped deformities of L2 and L3 on the left side Patient states that his low back pains mostly come and go and are mostly mild and tolerable so he does not wish to have anything else done for his lower back at this time and he prefers to avoid any surgery as much as possible He has been referred to PT in the past - states that physical therapy has helped somewhat (8) Back pain with right-sided radiculopathy: Code(s): M54.10 - Radiculopathy, site unspecified Category: Medical Plan: Have advised patient that his recurrent right-sided radicular symptoms are more consistently with spinal stenosis of the lumbar spine Patient states that these are mostly manageable and ease up almost immediately once he gets up and moves around although he feels like they are recurring more often lately and is wondering if seeing a chiropractor would be helpful He still prefers not to pursue any neurosurgical referral if he can avoid this Have advised patient that his recent right hip x-rays revealed only (+) mild OA changes in the hip and likely has no impact on his recent symptoms He was also previously referred to physical therapy for her right-sided low back pain - patient states that physical therapy also helped a lot with his low back pain Have advised patient that based on his lumbar spine x-rays findings, I would NOT recommend he see a chiropractor as back manipulations can potentially make his current back issues much worse (9) Erectile dysfunction: Code(s): N52.9 - Male erectile dysfunction, unspecified Category: Medical Qualifiers: Erectile dysfunction type: unspecified Qualified Code(s): N52.9 - Male erectile dysfunction, unspecified Plan: Continue Sildenafil 100 mg QD PRN (10) Post traumatic stress disorder (PTSD): Code(s): F43.10 - Post-traumatic stress disorder, unspecified Category: Medical Plan: Continue Lorazepam 1 mg QD PRN He used to take Buspirone but patient stopped it a couple of years ago as he did not feel that it was helping; he does not wish to start on any new Rx for now He is again advised to call if he feels that his anxiety is getting worse at any time Follow up with psychiatry as scheduled - therapist is Juan Adhikari III on [facility] in [place] although he states that he has not seen Juan Adhikari III in a few years now Plan Follow up in 4 months Orders: Orders Comprehensive Fisher. Panel Fast 4 Months E78.00 - Pure hypercholesterolemia, unspecified Lipid Panel 4 Months E78.00 - Pure hypercholesterolemia, unspecified Complete Blood Count Auto Diff 4 Months D64.9 - Anemia, unspecified TSH reflex Free T4 4 Months E78.00 - Pure hypercholesterolemia, unspecified UA CC w/rflx Micro + Cult 4 Months R30.0 - Dysuria Uric Acid 4 Months M10.9 - Gout, unspecified Vitamin D 25-OH Total 4 Months E55.9 - Vitamin D deficiency, unspecified
--- OUTSIDE RECORDS SUMMARY | 2025-07-12 13:44 | XMS_ITS | Data Portability ---
Author Organization [facility] [address] Address [address] [place] [address] Care Team Providers Care Plate And Frame Filter Operator Name Role Phone [facility] Primary Care Provider [phone] Assessment No assessment recorded. Plan of Treatment Reminders Order Date Submit Date Provider Last Modified By Organization Details Last Modified Time Details Appointments None recorded . Lab None recorded . Referral orthoped ic surgeon referral - fracture left radius from a fall. Need further evaluati on and treatmen t. 2022 023 [email or web address] 26 [facility] (Derek Lloyd), [address] [facility] [place], [address], 3 09:17:18 Procedures None recorded . Surgeries None recorded . Imaging XR, wrist, 3 or more view 2022 023 [facility], [address] [place], [address], 3 12:40:49 Medication Orders None recorded . Patient TargetsNo targets recorded. Patient Instructions Encounter Date Encounter Id Patient Instructions Last Modified By Organization Details Last Modified Time 09/09/2022 [id number] Your Care Instructions Your wrist hurts because [...] call your doctor or nurse advice line (027 in most provinces and territories) if you [...] your doctor if you can take an xxcf-[id number] medicine. Try not to use your injured [...] record ed. [email or web address] [facility] [address] [facility] [place], [address], 09/09/2022 15:36:05 Result Notes None recorded. Procedures Surgical History Date Name Laterality Status Provider Name and Address Organization Details Recorded Time 3 WRIST SPLINT completed Suman Clifton NP [address] [facility], [place], [address], [place] - [facility] 09/09/2022 11:35:40 3 Jose Bandage completed Suman Clifton NP [address] [place], [address], [place] - [facility] 09/09/2022 11:35:24 Imaging [...] null, [place] - [facility] 3 10:44:10 [id number] Advil medicatio n Not available Not available Not available 09/09/2022 [id number] RxNorm CARRIANNE MANSOOR null, [place] - [...] mass index (BMI) Body weight Oxygen saturation Heart rate Respiratory rate Body temperature Systolic And Diastolic Systolic And Diastolic Provider Name and Address Organization Details Last Updated DateTime 3 177.8 cm 23.5 kg/m2 12985.1 5 g 99 % 75 /min 20 /min 98.2 [degF] 166/104 mm[Hg] 158/108 mm[Hg] CHRISTIAN ARMSTRONG - [facility] 3 11:07:27 Social History Question Answer Notes LastModified by Organization D etails LastModified Time Have You Had Direct Contact, Or Contact During Intimacy, With Monkeypox Rash, Scabs, Or Body Fluids From A Person With Monkeypox? No [email or web address] Information not available 09/09/2022 Have You Recently Traveled Abroad? No [email or web address] Information not available 09/09/2022 Sex: Unknown Functional Status Question Answer Note LastModified by Organizat ion Details LastModified Time How many times per week do you consume alcohol? 3-4 times per week [email or web address] Information not available 09/09/2022 Do you use any illicit or recreational drugs? No [email or web address] Information not available 09/09/2022 Do you or have you ever used any other forms of tobacco or nicotine? No [email or web address] Information not available 09/09/2022 What is your level of alcohol consumption? Occasional [email or web address] Information not available 09/09/2022 Mental Status None [...] PF, 30 mcg/0.3 mL dose 2 completed CHRISTIAN MAX null, [place] - [...] Diagnosis SNOMED-CT Code Diagnosis ICD10 Code Diagnosis IMO Codes Diagnosis Note [id number] Suman Clifton, AMILCAR [address] [address] 09/09/2022 10:07:44 09/09/2022 11:52:32 Sprain of left wrist [id number] S63.502A Closed fra cture of distal end of radius [id number] S52.502A Health Concerns Section Related Observation LastModified by Organization Detai ls LastModified Time None Recorded Concern Status LastModified by Organization Details LastModified Time None Recorded Advance Directives Directive None Recorded Payers Insurance Date Sequence Insurance Name Policy Number Policy Garza Covered Member ID Garza Member ID Guarantor Name 09/09/2022 1 [facility] [id number] David Colby Carrier [id number] David Carrier Notes Date Note Type Note Provider Name and Address Organization Details Recorded Time 09/09/2022 text/html FallReported by PatientHPIFor source of patient information, patient reportsinformation obtained from patient,patient arrived at urgent care ambulatory, andlearning styles: auditory. For location of injuries, patient reportshead,face,wrist left, andhand left. For quality, patient reportsaching. For severity, patient reportspain scale : 4. For duration, patient reportsconstant. 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 For context, patient reportsfell from standing position,slipped, andlost balance. For aggravating factors, patient reportslifting. For alleviating factors, patient reportsice. For associated symptoms, patient reportsrecalls eventandno dizziness. For location where injury occurred, patient reportshome. For reported medications, patient reportsnot currently taking a blood thinner. Suman Clifton NP [address] [place], [address], [place] - [facility] 09/09/2022 11:51:12
== END 2025-07-12 11:05 | disposition home or self-care (01) ==
LOC: HO.HMCH 10:21
PROVIDERS: PCP Internal Medicine; Visit Provider Internal Medicine
DX: Z00.00 Encounter for general adult medical examination without abnormal findings (principal); E78.00 Pure hypercholesterolemia, unspecified; I10 Essential (primary) hypertension; M25.511 Pain in right shoulder; E55.9 Vitamin D deficiency, unspecified; M1A.09X0 Idiopathic chronic gout, multiple sites, without tophus (tophi); M51.362 Other intervertebral disc degeneration, lumbar region with discogenic back pain and lower extremity pain; M54.10 Radiculopathy, site unspecified; N52.9 Male erectile dysfunction, unspecified; F43.10 Post-traumatic stress disorder, unspecified